=== PATIENT | male | born 1975 | race Caucasian/White ===

== ENCOUNTER 2017-03-06 12:47 | Outpatient (RCR) | payer OTHER, BC, SELFPAY ==
--- NOTE | 2017-03-08 13:59 | HP.SP.AD_ITS ---
History - History Date of Eval: 03/06/17 Medical Diagnosis (from RX): Benign neoplasm of tongue Date of Onset of Diagnosis: 4-5 months ago Previous speech therapy: No Other Relevant Medical History/Diagnoses/Surgery: 19-20 years ago patient had a benign sublingual tumor which was resected. A second surgery was needed to continue resection as not all tumor was removed first surgery. He has baseline numbness in front left tip of tongue. No dysphagia reported. 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 Left tongue tip is numb and has been since previous surgeries. No articulation deficits noted or weakness noted. Objective Oral Motor - Oral Status Dentition: WNL - Labial Impairment: WNL Closure: WNL Pucker: WNL Retraction: WNL Alternating Pucker/Retraction: WNL Involuntary Movement noted: No - Lingual Impairment: WNL Protrusion: WNL Retraction: WNL Lateralization: WNL Involuntary Movement: No - Lingual Comments Comments: Noted patient has mild area of missing tongue on front left section from tumor resectino 20 years ago. Scar was observed on underside of tongue. Normal frenulum. Patient reports that his tongue will hurt and get tight feeling after talking for a while. Also Patient reported pain on tongue ranging from no pain to 5/10 pain. No pain medications taken for it. He feels like his tongue is swollen but it is not observed to be swollen. He has a small bump on middle of front underside that he reports is painful. He stated when he speaks more then it hurts more. It scrapes against his front teeth when speaking therefore increases irritation the more he speaks. He reported that moving his tongue in stretching manner helps aleviate pain. - Jaw Impairment: WNL - Respiratory Status Respiratory Status: Room Air Plan - Plan Plan: Speech therapy is recommended to follow this patient to determine if home program is effective for pain reduction and decreased feelings of swelling/ thickeness in tongue. Decreased pain is a goal for this patient as he stated that pain is interfering with his daily living including home life and occupation in sales. - Recommendations MBS: No Treatment Warranted: Yes - Frequency Frequency: Monthly Duration: 4-6 Months - Prognosis Prognosis: Good - Goals that are Established: Determination:: Goals will be added/modified as deemed necessary and appropriate. Therapy will be discontinued when results of re-evaluation indicate therapy is no longer needed or lack of progress has been documented. - Goal #1-5 Goal #1: Patient will complete lingual stretching exercises independently and reported 2-3x times per day. Goal #2: Patient will report pain level as no more than 3/ 10 in the last month. Education - Patient has Indicated that the Following Identified Educational Needs: None The Patient has indicated that they have no educational or learning abilities that may effect their care.: Yes - Patient Instruction Patient Education: Diagnosis, Treatment Plan, Home Exercise Program Person Taught: Patient Teaching Method: Discussion Response to teaching: Verbalize understanding
--- NOTE | 2017-05-15 11:50 | HP.SP.DC ---
ST Discharge Summary - Discharged: Discharge: Flaco Braun is discharged from [facility] as of May 15, 2017. 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 A home program was given to the patient with no direct therapy warranted as the patient wanted to consult another ENT. Patient saw Dr Beckman in February and had blood work and a CT scan both of which patient reported were normal. He stated that Dr Beckman noted that bump on bottom of tongue is from scrapping it against bottom teeth. Monday he had teeth ground down to no rough spot to rub. The patient requested discharge without a follow up session on May 15, 2017 as he said is doing well. A copy of this patients discharge summary will be sent to his referring physician.
--- NOTE | 2017-05-16 09:49 | HP.SP.LETT ---
HP - SP Letter - Letter Note: Communication: Flaco Braun was discharged in error as he has requested to return to therapy. Please disregard discharge dated 05/15/17. Thank you.
--- NOTE | 2017-07-10 13:46 | HP.SP.DC_ITS ---
ST Discharge Summary - Discharged: Discharge: Flaco Braun Is discharged from [facility] as of July 10, 2017. He decided that he did not want a follow up appointment and asked to be discharged. 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 A home program was given to the patient with no direct therapy warranted as the patient wanted to consult another ENT. Patient saw Dr Beckman in February and had blood work and a CT scan both of which patient reported were normal. The patient requested discharge without a follow up session on May 15, 2017 as he said is doing well. A copy of this patient?s discharge summary will be sent to his referring physician.
== END 2017-03-06 19:00 | disposition home or self-care (01) ==
LOC: SP 12:47
PROVIDERS: Family Provider Family Medicine; PCP Family Medicine; Visit Provider Family Medicine
DX: D10.1 Benign neoplasm of tongue (principal)

== ENCOUNTER → 2017-03-24 16:05 | Outpatient (CLI) | payer OTHER, SELFPAY ==
--- NOTE | 2017-03-24 16:07 | CT_ITS ---
STUDY: CT PARANASAL SINUSES WITH CONTRAST REASON FOR EXAM: Male, 41 years old. GLOSSODYNIA. LUMP ON TIP OF TONGUE. ATTN. 7TH CRANIO FACIAL NERVE. RADIATION DOSAGE (If Supplied By Facility): CTDIvol = ( 29.38 ) mGy, DLP = ( 664.99 ) mGycm TECHNIQUE: The patient was scanned in a multi-detector CT scanner. High resolution transaxial imaging was performed following the intravenous administration of 100ML ml of Isovue 300 contrast material. Sagittal and coronal images were reconstructed. Individualized dose optimization techniques were used for this CT. COMPARISON: None. FINDINGS: FRONTAL SINUSES: There is atresia of the frontal sinus ETHMOIDAL SINUSES: Normal development and aeration of the bilateral ethmoidal air cells without mucosal inflammatory disease. MAXILLARY SINUSES: There is moderate mucosal thickening of the right maxillary sinus. There is minimal mucosal thickening of the left maxillary sinus. SPHENOIDAL SINUSES: Normal aeration of the bilateral sphenoid sinuses and there is no mucosal inflammatory disease. OMU: There is lateralized bilateral uncinate processes with obstruction of the infundibula. MIDDLE TURBINATES: Normal bilateral middle turbinates without a warren bullosa or paradoxical curvature. INFERIOR TURBINATES: Normal bilateral inferior turbinates. NASAL SEPTUM: There is some mild deviation of the nasal septum to the right. Normal anterior cranial fossa, [place] and cribriform plate. Normal bilateral orbital contents. Normal nasopharynx without adenoidal pad hypertrophy, or a posterior nasopharyngeal retention cyst. There is no demonstrated enhancing soft tissue or osseous abnormality. CT/Sinus/Facial Bone WITH Contras IMPRESSION: Moderate chronic paranasal sinus disease. No masses or lymphadenopathy. Electronically Signed: Alma Vora MD at 15:31 EST Tel , Service support ,
== END ==
PROVIDERS: Family Provider Family Medicine; PCP Family Medicine; Visit Provider Otolaryngology
DX: K14.6 Glossodynia (principal)
CPT/HCPCS: 70487; Q9967

== ENCOUNTER → 2017-06-01 11:08 | Outpatient (CLI) | payer OTHER, SELFPAY ==
[2017-06-01 12:42] LABS: ALB/GLOB Ratio 1.1 RATIO (0.9-2.4); AST(SGOT) 32 U/L (15-37); Alanine Aminotransfer ALT/SGPT 33 U/L (16-61); Albumin, Serum 4.1 g/dL (3.2-5.0); Alkaline Phosphatase 62 U/L (45-117); Anion Gap 7 (5-15); BUN 20 mg/dL (7-18); BUN/Creat Ratio 22.9 RATIO (10-20); Calcium,Total 8.7 mg/dL (8.5-10.1); Chloride 108 mmol/L (98-107); Creatinine, Serum 0.87 mg/dL (0.70-1.30); EST Glomerular Filtration Rate 103 mL/min (>60); Est Glom Filt Rate - Afr Amer 124 mL/min (>60); Ferritin 114 ng/mL (26-388); Globulin 3.7 g/dL (2.2-4.2); Glucose 85 mg/dL (74-106); Iron 89 ug/dL (65-175); Potassium 3.9 mmol/L (3.5-5.1); Protein, Total 7.8 g/dL (6.4-8.2); Sodium Level 141 mmol/L (136-145); Thyroid Stim Hormone (TSH) 1.42 uIU/mL (0.358-3.74)
[2017-06-02 12:07] LABS: Vitamin B12 > 2000 pg/mL (211-911)
[2017-06-02 17:23] LABS: ANTINUCLEAR ANTIBODIES DIRECT Negative (Negative)
[2017-06-07 16:12] LABS: Endomysial Antibody IgA Negative (Negative); Immunoglobulin A 307 mg/dL (90-386)
[2017-06-08 10:08] LABS: t-Transglutaminase IgA <2 U/mL (0-3)
== END ==
PROVIDERS: Family Provider Family Medicine; PCP Family Medicine; Visit Provider Family Medicine
DX: K12.1 Other forms of stomatitis (principal)
CPT/HCPCS: 36415; 80053; 81291; 82607; 82728; 82746; 82784; 83516; 83540; 84443; 86038; 86255

== ENCOUNTER 2017-07-21 08:02 | Day surgery (SDC) | payer OTHER, SELFPAY ==
--- NOTE | 2017-07-21 | TOBX_PTH ---
PATIENT: ISACC MATA [place] [facility] [place][id number] AGE/SX: 41/M ROOM: RE07/21/[address]: Dr. Perez Beckman MD : 1975 BED: DIS: 07/21/2017 SPEC #: [id number] RECD: 07/21/17 11:07 STATUS: BERNADETTE REYudelka #: [id number] PAULINA: 07/21/17 00:[address]: Perez Beckman DEPT: SURGICAL PATHOLOGY RECD BY: Denise Vogel ENTERED: 07/21/17 12:12 SP TYPE: TONGUE BX OTHR DR: Dr. Nathan Yugn MD Tissues: Tongue, NOS Procedures: Special Stain Group I Surgery Specimen Level IV GMS Stain (control) HEADER OPERATION: Biopsy tongue, anterior, frozen section PRE-OP DIAGNOSIS: Glossodynia; hemihypertrophy of muscle, tongue TISSUE SUBMITTED: Biopsy tongue left anterior 2/3 for FS at 1103 MICROSCOPIC DIAGNOSIS Tongue, anterior two-third, biopsy: Squamous mucosa with underlying skeletal muscle tissue with pseudoepitheliomatous hyperplasia, clinically glossodynia and hemihypertrophy of muscle, tongue. Focal superficial bacterial colonization. Special stain for fungi is negative for organisms; matched control is appropriate. BANDAR:subhash 07/25/17 MICROSCOPIC DESCRIPTION Slides are reviewed. GROSS DESCRIPTION Received fresh for frozen section diagnosis, later on canceled, labeled with the patient's name is a specimen designated biopsy tongue, left anterior two-third. The specimen consists of a piece of pink-red mucosal tissue measuring 3 x 0.6 cm and up to 1 cm in thickness. The specimen is inked, bisected and submitted entirely in one cassette. / BANDAR:subhash 07/21/17 TC:5 [facility]: [id number], [id number]
[2017-07-21 09:04] VITALS: BP 125/83; PULSE 79; RESP 16; TEMP 36.7; O2SAT 100; BMI 27.6
--- NOTE | 2017-07-21 11:14 | PCM.OPRPT ---
Problem List (1) Other specified disorders of muscle Status: Chronic (2) Tongue neoplasm Status: Chronic Report of Operation Date of Procedure: 07/21/17 Pre-Operative Diagnosis: Mass left anterior tongue Post-Operative Diagnosis: same Surgery/Procedure Performed:: Excision of mass anterior 2/3 of tongue Description of Surgical Findings:: Flaco is a 41-year-old male who presents with a persistent enlargement of the left anterior aspect of the tongue within its substance. Imaging did not show any identifiable abnormality however observation and therapy failed to result in resolution given the possibility for a rare abnormality such as leiomyoma amyloidosis or other unusual tongue abnormality open biopsy was offered for definitive evaluation as this caused him much concern in distress. The risk of tongue tongue numbness alteration of taste and scar tissue were reviewed and he was agreeable to proceed. The risks, alternatives, potential benefits, and complications were discussed at length and any questions answered to the patient and/or caregiver's satisfaction. Witnessed informed consent was obtained in the office, and the patient and/or caregiver was agreeable to proceed. Procedure went as follows: The patient was identified in the preoperative holding and brought to the operating room where he was placed under general anesthesia and intubated. When appropriate anesthesia is obtained, the oral cavity was examined and the tongue palpated. There is noted to be some hemihypertrophy of the left aspect of the anterior tongue within the belly of the tongue musculature. Dental wedge was placed and a 3-0 silk suture was placed in the anterior tongue midline to allow for retraction. The tongue was then injected with 2% lidocaine with 1-200,000 epinephrine and using monopolar cautery a 2 cm x 1 cm ellipse was then made to the anterior aspect of the tongue. Dissection was then carried deeply into the muscular layer and the enlarged muscular area was then excised and sent for pathologic specimen. The wound was then closed deeply with interrupted 3-0 Vicryl suture followed by interrupted 3-0 Vicryl sutures to the tongue mucosa. No bleeding was encountered and the patient was returned to anesthesia where he was revived and extubated without complication having tolerated the procedure well. Type of Anesthesia:: General Anesthesiologist: Julian Burrows Special Medications: none Specimen's removed: Biopsy of anterior 2/3 of tongue, left Drains: none Estimated Blood Loss (mL): 0 mL Fluids Replaced: 700 mL Grafts/Implants Used: none - Complications none - Admit VTE Documentation VTE Present on Admission: No VTE Mechan Device Prophylaxis: SCD's VTE Pharm Prophylaxis ordered?: No
--- NOTE | 2017-07-21 11:24 | PCM.DC ---
- Discharge Diagnoses Current Active Problems: Current Active and Chronic Problems (Last Reviewed 04/20/17 @ 11:22 by Dali Painter) 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 Call your doctor if your incision/area has: Continuous Slow Oozing, Increased Pain/ Swelling, Swelling at the incision site Call your doctor if you observe: Fever of 101 or Higher, Uncontrolled pain Allergies/Adverse Reactions: Allergies Sulfa (Sulfonamide Antibiotics) Allergy (Verified 07/21/17 09:03) Anaphylaxis Medications to take at Discharge multivitamin capsule 1 cap PO DAILY 04/05/17 vitamin B complex capsule 1 cap PO DAILY 04/05/17 Citalopram [Celexa] 10 mg PO DAILY 07/14/17 Primary Care Physician: Nathan Yung MD [Primary Care Provider] - Please Follow Up With: Perez Beckman MD When: 2 weeks
[2017-07-21 11:30] VITALS: BP 125/83; BP 131/87; PULSE 63; RESP 16; TEMP 36.2; O2SAT 96
[2017-07-21 11:45] VITALS: BP 125/83; BP 130/88; PULSE 66; RESP 16; O2SAT 95
[2017-07-21 12:01] VITALS: BP 125/83; BP 129/94; PULSE 66; RESP 16; TEMP 36.4; O2SAT 96
[2017-07-21] MEDS: Ibuprofen 400 MG Tablet PO (12:39)
[2017-07-21 12:40] VITALS: BP 125/83
== END 2017-07-21 12:48 | disposition home or self-care (01) ==
LOC: SDC 08:02 → AC 08:05
PROVIDERS: Family Provider Family Medicine; PCP Family Medicine; Visit Provider Otolaryngology
PROC: (CPT 41112; principal; 2017-07-21 10:25)
DX: K14.6 Glossodynia (principal); M62.89 Other specified disorders of muscle; H92.02 Otalgia, left ear; F41.9 Anxiety disorder, unspecified; F17.200 Nicotine dependence, unspecified, uncomplicated; Z79.899 Other long term (current) drug therapy
CPT/HCPCS: 41112; 88305; 88312; J7120; A4216; J2405

== ENCOUNTER 2017-10-03 17:30 | Observation (INO) | payer OTHER, SELFPAY ==
[2017-10-03] VITALS (7 sets, daily range): BP systolic 122–134; BP diastolic 80–87; PULSE 64–80; RESP 16–18; TEMP 36.8–36.9; O2SAT 98–100; BMI 28.3; BMI 28.1; BMI 28.2
--- NOTE | 2017-10-03 17:44 | NURSING ---
NO OLD EKGS
--- NOTE | 2017-10-03 17:45 | RAD_ITS ---
STUDY: X-RAY CHEST REASON FOR EXAM: Male, 42 years old. Chest pain TECHNIQUE: Frontal view of the chest COMPARISON: None. FINDINGS: The lungs are clear. There are no pleural effusions. There is no pneumothorax. The heart is normal in size. The visualized osseous structures are within normal limits. RAD/Chest 1 View (Portable) IMPRESSION: No acute thoracic pathology. Electronically Signed: Herb Neely, at 18:20 EDT Tel , Service support ,
[2017-10-03 18:00] LABS: Absolute Lymphocyte Count 1.77 X10^3/ul (0.83-4.51); Absolute Neutrophil Count 3.2 X10^3/uL (2.0-7.7); Basophil# 0.04 X10^3/uL; Basophil% 0.6 % (0-1); Eosinophil# 0.41 X10^3/uL; Eosinophils% 6.5 % (0-5); Hematocrit 42.2 % (40-54); Hemoglobin 13.8 g/dl (13.0-16.5); Lymphocyte # 1.77 X10^3/ul (4.0); Lymphocyte % 28.1 % (19-41); Mean Corp Hgb Conc 32.7 g/gl (32-36); Mean Corpuscular Hgb 30.1 pg (27.0-32.0); Mean Corpuscular Volume 91.9 fL (80-94); Mean Platelet Vol. 9.9 fl (6.2-12.0); Monocyte# 0.84 X10^3/uL; Monocyte% 13.3 % (0-10); Neutrophil # 3.23 X10^3/uL (2.7-7.7); Neutrophil % 51.3 % (47-70); Platelet Count 260 K/mm3 (150-450); RBC Distribution Width SD 43.3 fl (35.1-43.9); Red Blood Count 4.59 M/mm3 (4.6-6.2); White Blood Count 6.3 K/mm3 (4.4-11.0)
[2017-10-03 18:18] LABS: POSITIVE COUNT NO; POSITIVE DIFFERENTIAL NO; POSITIVE MORPHOLOGY NO
[2017-10-03 18:23] LABS: Anion Gap 4 (5-15); BUN 19 mg/dL (7-18); Calcium,Total 8.9 mg/dL (8.5-10.1); Chloride 107 mmol/L (98-107); EST Glomerular Filtration Rate 88 mL/min (>60); Est Glom Filt Rate - Afr Amer 106 mL/min (>60); Estimated Creatinine Clearance 103.54 ml/min; Glucose 98 mg/dL (74-106); Potassium 4.1 mmol/L (3.5-5.1); Sodium Level 142 mmol/L (136-145)
[2017-10-03 18:44] LABS: D-Dimer Quantitative (DVT/PE) 0.27 FEU/ug/m (0.27-0.49)
--- NOTE | 2017-10-03 19:32 | ED.DCSUM_ITS ---
- ER Visit Summary Date of Service: 10/03/17 Chief Complaint: Chest pain History of Present Illness: The patient is a 42 M with chest pain for the past 4 days. It has been waxing and waning. He describes it as a heavy and squeezing sensation. He does get occasional shortness of breath and breaks out in a sweat for no reason, but on questioning does state the pain seems to be worse during these episodes. He has been more winded with exertion recently. He denies reflux symptoms. He did have recent travel. He has no cardiac risk factors are significant family history. Physical Examination: Vital signs unremarkable. Patient sitting upright in bed. Head neck examination unremarkable. Heart is regular rate and rhythm. Lung sounds are clear. He has very minimal chest wall tenderness that he states is not similar to the chest pain he feels. Abdomen is soft nontender. Lower extremity examination reveals no tenderness or edema. Strong distal pulses are noted throughout. Test Results: Portable chest x-ray shows no acute pathology. EKG is sinus at 66 with no sign of ischemia. CBC and chemistry studies normal. Troponin negative. D-dimer negative. Emergency Department Course and Treatment: Patient received aspirin. On repeat evaluation is resting comfortably. Although the patient does not have significant risk factors, his story is concerning. It does not appear that he gets diaphoretic with these episodes. I recommended observation overnight for cycling of enzymes and stress test. Treatment Plan: [] Disposition: Admit Impression: Chest pain This note was generated with Letsmake dictation software. It may contain incorrect words, spelling, and punctuation that were not noted in review of the chart prior to signing ED Disposition - Plan for ED Patient: Chief Complaint: Chest Pain Referrals: Perez Milligan MD [Primary Care Provider] -
--- NOTE | 2017-10-03 19:56 | PCM.HP.STD ---
Problem List (1) Chest pain Status: Acute Qualifiers: Chest pain type: unspecified Qualified Code(s): R07.9 - Chest pain, unspecified History of Present Illness Date of Admission: 10/03/17 Chief Complaint: chest pain. The patient is a 42 year old M presents with a 2 day history of chest pain. It began with feeling he swallowed a pill again his upper chest and then went down to his lower chest and just persisted. It would get worse when he would exert himself but would never completely go away. Associated with some diaphoresis and shortness of breath. Patient presented to the emergency room his chest pain was not resolving. He denies ever having had chest pain like this before. Patient states that 3 days prior he did a workout class and burnt 700 manny and had no chest pain at that time. Patient is normally very active and works out, does yoga. 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) Allergies Sulfa (Sulfonamide Antibiotics) Allergy (Verified 10/03/17 17:33) Anaphylaxis Home Medications: Ambulatory Orders Medication Instructions Recorded multivitamin capsule 1 cap PO DAILY 04/05/17 Citalopram [Celexa] 10 mg PO DAILY 07/14/17 Surgical History: - - Excision of mass on the anterior two thirds of Psychiatric History: No pertinent psych hx Lives: Spouse/ Significant Other Smoking Status: Never smoker Tobacco Use: Non-smoker Alcohol: Occasional Drugs: None - *Family History Maternal Family History: Family History (Last Reviewed 10/03/17 @ 19:58 by Perez Paez DO) Other Hypertension History Items: - Review of Systems Constitutional: Denies: Chills, Fever, Weight Change Eyes: Denies: Blurred vision, Double vision HEENT: Denies: Head Aches, Sinus Congestion, Sinus Drainage Cardiovascular: Reports: Chest Pain, Chest Tightness. Denies: Edema Respiratory: Reports: Shortness of Breath. Denies: Cough Gastrointestinal: Denies: Abdominal Pain, Nausea, Vomiting Genitourinary: Denies: Dysuria Musculoskeletal: Denies: Joint Pain, Joint Tenderness Skin: Denies: Rash, Wounds Neurological: Denies: Numbness, Tingling, Focal weakness Psychiatric: Denies: Anxiety, Depression Hematologic/ Lymphatic: Denies: Easy Bruising, Easy Bleeding, Hx of blood clot Comment: All review of systems are negative except as mentioned in the history of present illness and the other review of systems. VTE Information - Inpt Only VTE Present on Admission: No VTE Mechan Device Prophylaxis: None VTE Pharm Prophylaxis ordered?: No Reason prophylaxis not ordered:: Procedure Not Indicated Patient Problems: Active and Suspected Problems (Last Reviewed 04/20/17 @ 11:22 by Dali Painter) Chest pain (Acute) - Physical Exam General: Alert, Cooperative, No apparent distress, Well developed, Well nourished HEENT: Atraumatic, Normocephalic Oral: Moist Mucosa, No Gingival or Mucosal Lesions/ Ulcerations Neck: No Nodes, Thyroid Normal Size and Texture Lungs: Clear to auscultation, Normal air movement, No rhonchi, No wheeze Cardiovascular: Regular rate, Regular Rhythm, Normal S1, Normal S2, No murmurs Abdomen: Bowel Sounds Present, Soft, Non Tender, Non-Distended, No Hepato-splenomegaly Extremities: No clubbing, No edema Skin: No rashes, No breakdown Musculoskeletal: - - Reproducible anterior chest wall tenderness Psych/Mental Status: Normal Affect, Appropriate Vital Signs Temp Pulse Resp BP Pulse Ox 36.8 C 72 18 128/86 H 99 10/03/17 17:31 10/03/17 19:21 10/03/17 19:21 10/03/17 19:21 10/03/17 19:21 Oxygen Delivery Method Room Air Weight: 92.2 kg Body Mass Index (BMI) 28.3 Laboratory Tests Past 24 Hrs 10/03/17 10/03/17 10/03/17 17:45 17:45 17:45 WBC 6.3 RBC 4.59 L Hgb 13.8 Hct 42.2 MCV 91.9 MCH 30.1 MCHC 32.7 RDW 13.0 RDW Differential 43.3 Plt Count 260 MPV 9.9 Immature Gran % (Auto) 0.200 Neut % (Auto) 51.3 Lymph % (Auto) 28.1 [place] % (Auto) 13.3 H Eos % (Auto) 6.5 H Baso % (Auto) 0.6 Absolute Neuts (auto) 3.2 Absolute Lymphs (auto) 1.77 Total Counted Not Reportable D-Dimer Quant (PE/DVT) 0.27 Sodium 142 Potassium 4.1 Chloride 107 Carbon Dioxide 31.0 Anion Gap 4 L BUN 19 H Creatinine 1.00 Estim Creat Clear Calc 103.54 Est GFR (MDRD) Af Amer 106 Est GFR (MDRD) Non-Af 88 BUN/Creatinine Ratio 19.0 Glucose 98 Calcium 8.9 Troponin I < 0.015 Clinical Impression(s) from Imaging Studies Chest X-Ray 10/03/17 17:45 IMPRESSION: No acute thoracic pathology. Electronically Signed: Herb Neely, at 18:20 EDT Tel , Service support , EKG reviewed and showed normal sinus rhythm. Questionable Q in lead III Assessment/Plan All Active Problems (Last Reviewed 04/20/17 @ 11:22 by Dali Painter) Chest pain (Acute) Otitis media (Acute) Sinusitis, acute maxillary (Acute) 1. Chest pain Heart score of 2 JOHN score of 0 Asked to admit the patient for concern from the emergency room physician can patient's chest pain and diaphoresis and shortness of breath. Will admit the patient and have him complete a rest test. Patient is pretty healthy and informed him that he may have to run with treadmill which he has no issues with his he is very active overall. Patient may have to run because to get his heart rate up to the age-adjusted range per the [employer] protocol Cycle troponins My concern is that this is likely not his heart and could be GI or even musculoskeletal. We will start him empirically on Protonix. 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 I explained to patient if his symptoms persist and his cardiac workup is negative he may need to see a health science instructor for possible EGD. 2. DVT prophylaxis: Patient is low risk, no DVT prophylaxis is necessary at this time and also the fact the patient is under observation status. Code Visit OBSV E&M: [id number] Initial observation care L2
--- NOTE | 2017-10-03 20:00 | HP.PCM_ITS ---
Problem List (1) Chest pain Status: Acute Qualifiers: Chest pain type: unspecified Qualified Code(s): R07.9 - Chest pain, unspecified History of Present Illness Date of Admission: 10/03/17 Chief Complaint: chest pain. The patient is a 42 year old M presents with a 2 day history of chest pain. It began with feeling he swallowed a pill again his upper chest and then went down to his lower chest and just persisted. It would get worse when he would exert himself but would never completely go away. Associated with some diaphoresis and shortness of breath. Patient presented to the emergency room his chest pain was not resolving. He denies ever having had chest pain like this before. Patient states that 3 days prior he did a workout class and burnt 700 manny and had no chest pain at that time. Patient is normally very active and works out, does yoga. 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) Allergies Sulfa (Sulfonamide Antibiotics) Allergy (Verified 10/03/17 17:33) Anaphylaxis Home Medications: Ambulatory Orders Medication Instructions Recorded multivitamin capsule 1 cap PO DAILY 04/05/17 Citalopram [Celexa] 10 mg PO DAILY 07/14/17 Surgical History: - - Excision of mass on the anterior two thirds of Psychiatric History: No pertinent psych hx Lives: Spouse/ Significant Other Smoking Status: Never smoker Tobacco Use: Non-smoker Alcohol: Occasional Drugs: None - *Family History Maternal Family History: Family History (Last Reviewed 10/03/17 @ 19:58 by Perez Paez DO) Other Hypertension History Items: - Review of Systems Constitutional: Denies: Chills, Fever, Weight Change Eyes: Denies: Blurred vision, Double vision HEENT: Denies: Head Aches, Sinus Congestion, Sinus Drainage Cardiovascular: Reports: Chest Pain, Chest Tightness. Denies: Edema Respiratory: Reports: Shortness of Breath. Denies: Cough Gastrointestinal: Denies: Abdominal Pain, Nausea, Vomiting Genitourinary: Denies: Dysuria Musculoskeletal: Denies: Joint Pain, Joint Tenderness Skin: Denies: Rash, Wounds Neurological: Denies: Numbness, Tingling, Focal weakness Psychiatric: Denies: Anxiety, Depression Hematologic/ Lymphatic: Denies: Easy Bruising, Easy Bleeding, Hx of blood clot Comment: All review of systems are negative except as mentioned in the history of present illness and the other review of systems. VTE Information - Inpt Only VTE Present on Admission: No VTE Mechan Device Prophylaxis: None VTE Pharm Prophylaxis ordered?: No Reason prophylaxis not ordered:: Procedure Not Indicated Patient Problems: Active and Suspected Problems (Last Reviewed 04/20/17 @ 11:22 by Dali Painter) Chest pain (Acute) - Physical Exam General: Alert, Cooperative, No apparent distress, Well developed, Well nourished HEENT: Atraumatic, Normocephalic Oral: Moist Mucosa, No Gingival or Mucosal Lesions/ Ulcerations Neck: No Nodes, Thyroid Normal Size and Texture Lungs: Clear to auscultation, Normal air movement, No rhonchi, No wheeze Cardiovascular: Regular rate, Regular Rhythm, Normal S1, Normal S2, No murmurs Abdomen: Bowel Sounds Present, Soft, Non Tender, Non-Distended, No Hepato- splenomegaly Extremities: No clubbing, No edema Skin: No rashes, No breakdown Musculoskeletal: - - Reproducible anterior chest wall tenderness Psych/Mental Status: Normal Affect, Appropriate Vital Signs Temp Pulse Resp BP Pulse Ox 36.8 C 72 18 128/86 H 99 10/03/17 17:31 10/03/17 19:21 10/03/17 19:21 10/03/17 19:21 10/03/17 19:21 Oxygen Delivery Method Room Air Weight: 92.2 kg Body Mass Index (BMI) 28.3 Laboratory Tests Past 24 Hrs 10/03/17 10/03/17 10/03/17 17:45 17:45 17:45 WBC 6.3 RBC 4.59 L Hgb 13.8 Hct 42.2 MCV 91.9 MCH 30.1 MCHC 32.7 RDW 13.0 RDW Differential 43.3 Plt Count 260 MPV 9.9 Immature Gran % (Auto) 0.200 Neut % (Auto) 51.3 Lymph % (Auto) 28.1 [place] % (Auto) 13.3 H Eos % (Auto) 6.5 H Baso % (Auto) 0.6 Absolute Neuts (auto) 3.2 Absolute Lymphs (auto) 1.77 Total Counted Not Reportable D-Dimer Quant (PE/DVT) 0.27 Sodium 142 Potassium 4.1 Chloride 107 Carbon Dioxide 31.0 Anion Gap 4 L BUN 19 H Creatinine 1.00 Estim Creat Clear Calc 103.54 Est GFR (MDRD) Af Amer 106 Est GFR (MDRD) Non-Af 88 BUN/Creatinine Ratio 19.0 Glucose 98 Calcium 8.9 Troponin I < 0.015 Clinical Impression(s) from Imaging Studies Chest X-Ray 10/03/17 17:45 IMPRESSION: No acute thoracic pathology. Electronically Signed: Herb Neely, at 18:20 EDT Tel , Service support , EKG reviewed and showed normal sinus rhythm. Questionable Q in lead III Assessment/Plan All Active Problems (Last Reviewed 04/20/17 @ 11:22 by Dali Painter) Chest pain (Acute) Otitis media (Acute) Sinusitis, acute maxillary (Acute) 1. Chest pain * Heart score of 2 * JOHN score of 0 * Asked to admit the patient for concern from the emergency room physician can patient's chest pain and diaphoresis and shortness of breath. * Will admit the patient and have him complete a rest test. Patient is pretty healthy and informed him that he may have to run with treadmill which he has no issues with his he is very active overall. Patient may have to run because to get his heart rate up to the age-adjusted range per the [facility] protocol * Cycle troponins * My concern is that this is likely not his heart and could be GI or even musculoskeletal. We will start him empirically on Protonix. 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 I explained to patient if his symptoms persist and his cardiac workup is negative he may need to see a contract administrator for possible EGD. 2. DVT prophylaxis: Patient is low risk, no DVT prophylaxis is necessary at this time and also the fact the patient is under observation status. Code Visit OBSV E&M: 74127 Initial observation care L2
--- NOTE | 2017-10-03 20:26 | NURSING ---
Called ED lacquer mixerMila MARY at this time to confirm Pt okay to come to PCU.
--- NOTE | 2017-10-03 21:32 | NURSING ---
no vaccines to record.
--- NOTE | 2017-10-03 21:35 | EKG12_ITS ---
Test Reason : ADM EKG Blood Pressure : / mmHG Vent. Rate : 065 BPM Atrial Rate : 065 BPM P-R Int : 170 ms QRS Dur : 104 ms QT Int : 414 ms P-R-T Axes : 046 025 -01 degrees QTc Int : 430 ms Normal sinus rhythm Poor R wave progression Nonspecific T wave abnormality Confirmed by ARCHANA BECKMAN, MILLICENT ([id number]), editor house organ [place] ([id number]) on 10/06/2017 2:07:55 PM Referred By: CARLOS ALBERTO Confirmed By:MILLICENT MAGAÑA MD
[2017-10-03] MEDS: Aspirin 81 MG TAB.CHEW 324 MG PO (22:43)
[2017-10-03] MEDS: Pantoprazole Sodium 40 MG Tablet PO (22:43)
[2017-10-04] VITALS (9 sets, daily range): BP systolic 115–131; BP diastolic 63–76; PULSE 57–85; RESP 16–18; TEMP 36.4–37.3; O2SAT 95–98
--- NOTE | 2017-10-04 05:00 | EKG12_ITS ---
Test Reason : AM EKG Blood Pressure : / mmHG Vent. Rate : 066 BPM Atrial Rate : 066 BPM P-R Int : 170 ms QRS Dur : 108 ms QT Int : 432 ms P-R-T Axes : 054 031 008 degrees QTc Int : 452 ms Normal sinus rhythm Poor R wave progression Nonspecific T wave abnormality Confirmed by ARCHANA BECKMAN, MILLICENT ([id number]), purchasing expeditor [place] ([id number]) on 10/06/2017 2:05:51 PM Referred By: CARLOS ALBERTO Confirmed By:MILLICENT MAGAÑA MD
[2017-10-04 05:37] LABS: Absolute Lymphocyte Count 1.59 X10^3/ul (0.83-4.51); Absolute Neutrophil Count 2.4 X10^3/uL (2.0-7.7); Basophil# 0.03 X10^3/uL; Basophil% 0.6 % (0-1); Eosinophil# 0.38 X10^3/uL; Eosinophils% 7.6 % (0-5); Hematocrit 41.1 % (40-54); Hemoglobin 13.5 g/dl (13.0-16.5); Lymphocyte # 1.59 X10^3/ul (4.0); Lymphocyte % 31.7 % (19-41); Mean Corp Hgb Conc 32.8 g/gl (32-36); Mean Corpuscular Hgb 30.1 pg (27.0-32.0); Mean Corpuscular Volume 91.5 fL (80-94); Mean Platelet Vol. 9.9 fl (6.2-12.0); Neutrophil % 47.9 % (47-70); Platelet Count 249 K/mm3 (150-450); RBC Distribution Width CV 12.9 % (11.6-14.6); RBC Distribution Width SD 42.7 fl (35.1-43.9); Red Blood Count 4.49 M/mm3 (4.6-6.2)
[2017-10-04 05:44] LABS: Prothrombin Time (Protime)PT. 13.3 SECONDS (11.7-14.9)
[2017-10-04 05:45] LABS: Partial Thromboplast Time 29.2 Seconds (24.1-36.2)
[2017-10-04] MEDS: Aspirin E.C. 81 MG Tablet PO (05:46)
[2017-10-04 06:01] LABS: Anion Gap 6 (5-15); BUN 19 mg/dL (7-18); BUN/Creat Ratio 22.7 RATIO (10-20); Calcium,Total 8.6 mg/dL (8.5-10.1); Chloride 107 mmol/L (98-107); Cholesterol 233 mg/dL (200); Creatinine, Serum 0.84 mg/dL (0.70-1.30); EST Glomerular Filtration Rate 107 mL/min (>60); Est Glom Filt Rate - Afr Amer 130 mL/min (>60); Estimated Creatinine Clearance 123.26 ml/min; Glucose 96 mg/dL (74-106); High Density Lipoprotein 59 mg/dL; Potassium 4.3 mmol/L (3.5-5.1); Sodium Level 143 mmol/L (136-145); Triglycerides 162 mg/dL; Very Low Density Lipoprotein 32 mg/dL (5-40)
[2017-10-04 06:06] LABS: POSITIVE COUNT NO; POSITIVE DIFFERENTIAL NO; POSITIVE MORPHOLOGY NO
[2017-10-04] MEDS: 0.9% NaCl Peripheral Flush Adult/Peds IV (06:25)
[2017-10-04] MEDS: Multivitamins,Therapeutic Tablet 1 TABLET PO (09:38)
[2017-10-04] MEDS: Pantoprazole Sodium 40 MG Tablet PO (09:38)
[2017-10-04] MEDS: Citalopram 10 MG Tablet PO (09:38)
--- NOTE | 2017-10-04 11:13 | DCINST_ITS ---
- Discharge Diagnoses Current Active Problems: Current Active and Chronic Problems (Last Reviewed 04/20/17 @ 11:22 by Dali Painter) Chest pain (Acute) You will use the following diet at home:: Regular Your food should be the consistency of: Regular Discharge Activity: Return to Normal Activity Weight Bearing Status: Full weight bearing Call your doctor if you observe: Fever of 101 or Higher, Shortness of breath, Dizziness, Fainting spells, Chest pain, Increased palpitations (irregular heartbeat), Uncontrolled pain Allergies/Adverse Reactions: Allergies Sulfa (Sulfonamide Antibiotics) Allergy (Verified 10/03/17 17:33) Anaphylaxis Medications to take at Discharge multivitamin capsule 1 cap PO DAILY 04/05/17 Citalopram [Celexa] 10 mg PO DAILY 07/14/17 Pantoprazole Sodium [Protonix] 40 mg PO DAILY #30 tab 10/04/17 The following prescriptions were given: Pantoprazole Sodium [Protonix] 40 mg PO DAILY #30 tab Primary Care Physician: Perez Milligan MD [Primary Care Provider] - Please follow up with your Primary Care Physician in: 2-4 weeks. Test Results: Test results from this visit will be discussed in further detail at your follow- up appointment, if applicable.
--- NOTE | 2017-10-04 14:58 | DS.PCM_ITS ---
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 Electronically Signed: Herb Neely, at 18:20 EDT Tel , Service support , Procedures: EKG, - - Stress echocardiogram. Summary of Care Provided: Patient seen and examined on the day of discharge and appeared to be stable to be discharged home. His chest pain improved but still having mild chest discomfort described as something stuck in the middle of his chest. Denied shortness of breath, palpitation, dizziness, lightheadedness, syncope or presyncope his vital signs are stable. - Physical Exam General: Alert, Oriented x3, Cooperative, No apparent distress. HEENT: Atraumatic, PERRLA, EOMI. Neck: Supple, No JVD, Negative Carotid Bruits, Trachea Midline, Thyroid Normal. Lungs: Clear to auscultation, Normal air movement, No rhonchi, No wheeze, No rales. Cardiovascular: Regular rate, Regular Rhythm, Normal S1, Normal S2, PMI Normal. Abdomen: Bowel Sounds Present, Soft, Non Tender, Non-Distended, No Hepato- splenomegaly. Extremities: No clubbing, No cyanosis, No edema Skin: No rashes, No breakdown Neurological: Neuro grossly intact Vital Signs are stable. Hospital course: The patient is a 42 year old M admitted for chest pain for evaluation. He has no risk factors for CAD and no family history of premature CAD. His EKG revealed normal sinus rhythm without evidence of acute ischemic changes. His troponin was negative ?3. Routine blood work was unremarkable. Chest x-ray showed no acute findings. Patient underwent stress echocardiogram that reported as negative without evidence of stress-induced myocardial ischemia based on EKG and echocardiographic criteria, official report is pending at the time of discharge. ACS ruled out. Patient symptoms attributed to probable GERD versus esophageal spasm. Patient discharged home in a stable medical condition, discharged on Protonix 40 mg p.o. daily, recommended PCP in 2-4 weeks and if his symptoms persist, he may need GI referral as outpatient. Discharge Activity: Return to Normal Activity Weight Bearing Status: Full weight bearing Call your doctor if you observe: Fever of 101 or Higher, Shortness of breath, Dizziness, Fainting spells, Chest pain, Increased palpitations (irregular heartbeat), Uncontrolled pain Home Medications: Medications to take at Discharge multivitamin capsule 1 cap PO DAILY 04/05/17 Citalopram [Celexa] 10 mg PO DAILY 07/14/17 Pantoprazole Sodium [Protonix] 40 mg PO DAILY #30 tab 10/04/17 Following Prescrptions Were Given to Patient: Pantoprazole Sodium [Protonix] 40 mg PO DAILY #30 tab Primary Care Physician: Perez Milligan MD [Primary Care Provider] - Please follow up with your Primary Care Physician in: 2-4 weeks. Disposition: Home Minutes spent on discharge:: 25 Patient Condition:: Stable Medical Necessity - Tobacco Use Smoking Status: Never smoker Tobacco Use: Non-smoker Meaningful Use Info Meaningful Use Diagnoses (Choose all that apply): None applicable Code Visit OBSV E&M: 52528 Observation care discharge
== END 2017-10-04 11:12 | disposition home or self-care (01) ==
LOC: ED 18:22 → PCU 20:14
PROVIDERS: Emergency Provider Emergency Medicine; Family Provider Family Medicine; PCP Family Medicine; Visit Provider Hospitalist
DX: R07.89 Other chest pain (principal); R06.02 Shortness of breath; Z79.899 Other long term (current) drug therapy; F32.9 Major depressive disorder, single episode, unspecified; F41.9 Anxiety disorder, unspecified
CPT/HCPCS: 36415; 71045; 80048; 80061; 84484; 85025; 85379; 85610; 85730; 93005; 93017; 93350; 97802; 99218; 99285; A4216; G0378

== ENCOUNTER → 2017-10-18 08:25 | Outpatient (CLI) | payer OTHER, SELFPAY | PROVIDERS: Family Provider Family Medicine; PCP Family Medicine; Visit Provider Family Medicine | DX: R13.10 Dysphagia, unspecified (principal) | CPT/HCPCS: 74220 ==

== ENCOUNTER → 2017-11-29 08:03 | Outpatient (CLI) | payer OTHER, SELFPAY ==
--- OUTSIDE RECORDS SUMMARY | 2017-11-29 08:19 | XMS RPT_ITS ---
:1975 Author Organization [facility] Care Team Providers Name Role Phone Perez Milligan Attending Unavailable Perez Milligan Unavailable Perez Milligan Primary Care Unavailable PROBLEMS PROBLEMS No Problem Records FoundPROCEDURES PROCEDURES No Procedure Records FoundRESULTS RESULTS No Result Records FoundALLERGIES ALLERGIES No Allergies Records FoundENCOUNTERS ENCOUNTERS ADMIT/DISCHARGE ACCOUNT ADMITTING ENCOUNTER LOCATION SOURCE NUMBER CLASS 11/29/2017 [id number] Ambulatory Eli Eli 4 [facility] ing:MFPLAB Repository 11/29/2017 [id number] Ambulatory Eli Eli 9 [facility] ing:LAB.FUTUR Repository E PAYERS PAYERS ENCOUNTER GUARANTOR PAYER SUBSCRIBER SOURCE 11/29/2017 ANA PAULA Benitez [id number] Insurance:Komal SARAIDOB: [facility] [place]: [id number] Repository [id number]: [phone]) Date:[phone] () [id number] [id number]: 11/29/2017 Secondary NOT GIVENUNK Eli Insurance:SELF PAY [facility] Number: Effective Repository Date:2017-11-29 11/29/2017 Primary NOT GIVENUNK [place] Insurance:SELF PAY [facility] Number: Effective Repository Date:2017-11-29
[2017-11-29 12:45] LABS: Vitamin B12 641 pg/mL (211-911); Vitamin D,25 Hydroxy 19.2 ng/mL (29.95-100.01)
[2017-11-29 13:06] LABS: Anion Gap 6 (5-15); BUN 12 mg/dL (7-18); BUN/Creat Ratio 13.1 RATIO (10-20); Calcium,Total 8.7 mg/dL (8.5-10.1); Chloride 105 mmol/L (98-107); Creatinine, Serum 0.92 mg/dL (0.70-1.30); EST Glomerular Filtration Rate 97 mL/min (>60); Est Glom Filt Rate - Afr Amer 117 mL/min (>60); Glucose 94 mg/dL (74-106); Potassium 4.2 mmol/L (3.5-5.1); Sodium Level 138 mmol/L (136-145)
[2017-12-01 18:51] LABS: Vitamin D 1,25-Dihydroxy 33.7 pg/mL (19.9-79.3)
[2017-12-01 18:57] LABS: ANTINUCLEAR ANTIBODIES DIRECT Negative (Negative); Anti-Mitochondrial AB <20.0 Units (0.0-20.0)
[2017-12-03 16:06] LABS: Folate, Hemolysate Test 478.8 ng/mL (Not Estab.); Folate, RBC (Hct) Test 41.4 % (37.5-51.0); Folates, RBC Test 1157 ng/mL (>498); Testosterone, % Free 3.98 % (1.50-4.20); Testosterone, Free 16.64 ng/dL (5.00-21.00)
[2017-12-04 11:22] LABS: EBV Acute VCA IgM < 36.0 U/mL (0.0-35.9); EBV Early Antigen IgG <9.0 U/mL (0.0-8.9); EBV-VCA IgG 49.8 U/mL (0.0-17.9); Testosterone, Total 418 ng/dL (264-916); Vitamin B1, Thiamine 139.6 nmol/L (66.5-200.0)
== END ==
PROVIDERS: Family Provider Family Medicine; PCP Family Medicine; Visit Provider Family Medicine
DX: K13.70 Unspecified lesions of oral mucosa (principal); E72.12 Methylenetetrahydrofolate reductase deficiency
CPT/HCPCS: 36415; 80048; 82306; 82607; 82652; 82746; 82747; 83516; 83735; 84402; 84403; 84425; 85014; 86038; 86663; 86664; 86665

== ENCOUNTER → 2018-01-15 07:10 | Outpatient (CLI) | payer OTHER, SELFPAY ==
[2018-01-15 07:10] VITALS: BMI 28.5
[2018-01-15 11:20] LABS: Thyroid Stim Hormone (TSH) 1.82 uIU/mL (0.358-3.74)
== END ==
PROVIDERS: Family Provider Family Medicine; PCP Family Medicine
DX: G52.3 Disorders of hypoglossal nerve (principal)
CPT/HCPCS: 36415; 84443

== ENCOUNTER → 2018-01-22 15:17 | Outpatient (CLI) | payer OTHER, SELFPAY ==
[2018-01-15 07:10] VITALS: BMI 28.5
--- NOTE | 2018-01-22 15:30 | MRI_ITS ---
STUDY: MRI BRAIN WITH AND WITHOUT CONTRAST REASON FOR EXAM: Male, 42 years old. MASS -- pain/ pulling sensation tip of tongue x 15 months, bx done back of tongue previously. TECHNIQUE: Standardized multiplanar fat and water weighted pulse sequences were obtained. 10 ml of Gadavist contrast material was administered intravenously for the contrast portion of the examination. COMPARISON: CT sinuses dated March 24, 2018 FINDINGS: Normal size of the ventricles and extra-axial spaces for the patient's age. Normal white matter tracts of the supratentorial brain. Normal bilateral basal ganglia. Normal thalami. There is no extra-axial fluid accumulation. Normal flow voids within the major intracranial circulation suggesting patency by spin echo criteria. Normal venous enhancement. There is no enhancing intra-axial or extra-axial abnormality. Normal sella turcica, pituitary gland, infundibular stalk, optic chiasm and hypothalamus. Normal tectal plate and pineal gland. Normal midbrain, sylvia and medulla. Normal cerebellum. Normal basal cisterns. Normal bilateral temporal bones. Normal bilateral internal auditory canals. No demonstrated orbital abnormality, within the constraints of a routine brain study. Normal visualized paranasal sinuses. Normal calvarium and skull base. Normal visualized soft tissue structures. Normal visualized upper cervical spine. There are no demonstrated masses of the tongue. Please note that MRI evaluation of the tongue is less sensitive than CT and physical examination. MRI/Brain W/WO Contrast IMPRESSION: Unremarkable MRI of the brain. No demonstrated masses of the tongue as described above. Electronically Signed: Alma Vora MD at 15:55 EST Tel , Service support ,
--- OUTSIDE RECORDS SUMMARY | 2018-03-06 13:48 | XMS RPT_ITS ---
:1975 Author Organization OHIP Support Name Relationship Address Phone [employer] [employer] Unavailable [id number] + [place] [address] ADOLFO, VERÓNICA Unavailable [address] + [place] [address] [employer] Unavailable [address] + [place] [address] ADOLFO, VERÓNICA Unavailable [address] + [place] [address] [employer] [employer] Unavailable [address] + [place] [address] ADOLFO, VERÓNICA Unavailable [address] + [place] [address] [employer] Unavailable [address] + [place] [address] ADOLFO, VERÓNICA Unavailable [address] + [place] [address] [employer] [employer] Unavailable [address] + [place] [address] ADOLFO, VERÓNICA Unavailable [address] + [place] [address] [employer] [employer] Unavailable [address] + [place] [address] ADOLFO, VERÓNICA Unavailable [address] + [place] [address] [employer] Unavailable [address] + [place] [address] ADOLFO, VERÓNICA Unavailable [address] + [place] [address] [employer] Unavailable [address] + [place] [address] ADOLFO, VERÓNICA Unavailable [address] + [place] [address] [employer] Unavailable [address] + [place] [address] ADOLFO, VERÓNICA Unavailable [address] + [place] [address] [employer] [employer] Unavailable [address] + [place] [address] ADOLFO, VERÓNICA Unavailable [address] + [place] [address] [employer] Unavailable [address] + [place] [address] ADOLFO, VERÓNICA Unavailable [address] + [place] [address] [employer] Unavailable [address] + [place] [address] ADOLFO, VERÓINCA Unavailable [address] + [place] [address] [employer] Unavailable [address] + [place] [address] ADOLFO, VERÓNICA Unavailable [address] + [place] [address] [employer] Unavailable [address] + [place] [address] ADOLFO, VERÓNICA Unavailable [address] + [place] [address] [employer] Unavailable [address] + [place] [address] ADOLFO, VERÓNICA Unavailable [address] + [place] [address] [employer] Unavailable [address] + [place] [address] ADOLFO, VERÓNICA Unavailable [address] + [place] [address] [employer] [employer] Unavailable [address] + [place] [address] ADOLFO, VERÓNICA Unavailable [address] [facility] + [place] [address] [employer] Unavailable [id number] + [place] [address] ADOLFO, VERÓNICA Unavailable [address] [facility] + [place] [address] [employer] Unavailable [address] + [place] [address] ADOLFO, VERÓNICA Unavailable [address] [facility] + [place] [address] Care Team Providers Name Role Phone DOCTOR, OUT OF TOWN Attending Unavailable Dilshad, Nathan Primary Care Unavailable Dilshad, Nathan Attending Unavailable Dilshad, Nathan Primary Care Unavailable Dilshad, Nathan Referring Unavailable Beckman, Ashly Attending Unavailable Beckman, Ashly Referring Unavailable Dilshad, Nathan Primary Care Unavailable Beckman, Ashly Attending Unavailable Dilshad, Nathan Primary Care Unavailable Herb Khan Attending Unavailable Dilshad, Nathan Referring Unavailable Dilshad, Nathan Primary Care Unavailable Herb Khan Attending Unavailable Dilshad, Nathan Referring Unavailable Dilshad, Nathan Primary Care Unavailable Milligan, Ashly Attending Unavailable Milligan, Ashly Primary Care Unavailable Beckman, Ashly Attending Unavailable Beckman, Ashly Referring Unavailable Dilshad, Nathan Primary Care Unavailable Dilshad, Nathan Primary Care Unavailable Jopperi, Ashly Admitting Unavailable Ashelfah, Ghasem Attending Unavailable Jopperi, Ashly Attending Unavailable Dilshad, Nathan Primary Care Unavailable Jopperi, Ashly Admitting Unavailable Ashelfah, Ghasem Attending Unavailable Dilshad, Nathan Primary Care Unavailable Ashelfah, Ghasem Consulting Unavailable Milligan, Ashly Attending Unavailable Milligan, Ashly Referring Unavailable Milligan, Ashly Primary Care Unavailable Mundo Magaña Attending Unavailable Jopperi, Ashly Referring Unavailable Fabian Membreno Attending Unavailable Ashelfah, Ghasem Referring Unavailable Milligan, Ashly Attending Unavailable Milligan, Ashly Attending Unavailable Milligan, Ashly Primary Care Unavailable ELENA NULL Attending Unavailable ELENA NULL Referring Unavailable Milligan, Ashly Primary Care Unavailable ELENA NULL Consulting Unavailable RAFECAS, HARSHIL Attending Unavailable RAFECAS, HARSHIL Referring Unavailable Milligan, Ashly Primary Care Unavailable Milligan, Ashly Attending Unavailable Milligan, Ashly Primary Care Unavailable Milligan, Ashly Attending Unavailable Milligan, Ashly Referring Unavailable Milligan, Ashly Primary Care Unavailable JUDITH, ASHLY Referring Unavailable ROOFENER, BISI Attending Unavailable ROOFENER, BISI Attending Unavailable ROOFENER, BISI Referring Unavailable ROOFENER, BISI Attending Unavailable ROOFENER, BISI Referring Unavailable ROOFENER, BISI Attending Unavailable ROOFENER, BISI Referring Unavailable ROOFENER, BISI Attending Unavailable ROOFENER, BISI Referring Unavailable JUDITH, ASHLY Attending Unavailable ROOFENER, BISI Attending Unavailable ROOFENER, BISI Referring Unavailable ROOFENER, BISI Attending Unavailable ROOFENER, BISI Referring Unavailable ROOFENER, BISI Attending Unavailable ROOFENER, BISI Referring Unavailable ROOFENER, BISI Attending Unavailable ROOFENER, BISI Referring Unavailable PROBLEMS PROBLEMS DATE TYPE CONDITION / CODE ATTENDING STATUS SOURCE 01/25/2018 Unknown Z20.828 - Contact with MilliganAshly Active [place] and (suspected) Community exposure to other Hospital viral communicable Repository diseases / Z20.828(ICD-10) 01/22/2018 Unknown G50.1 - Atypical [place] NULL Active [place] facial pain / Community G50.1(ICD-10) Hospital Repository 01/15/2018 Unknown 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 Last treatment date: February 05, 2018 Initial treatment date: November 20, 2017 Allergies reviewed: Yes, no change Medication reviewed: Yes, no change Chief Complaint: CC: Migraine without aura. Response to the last Tx/ Current symptoms: Last week had no migraine, Neck tension remains getting worse towards the end of work week. Tongue pain relief lasts for the same day. Last week had ENT injecting his tongue with lidocaine, that provided relief for a day. 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 # of needle inserted: 24 # of needles withdrawn: 24 Fontana were retained for 30 minutes. TDP lamp applied to none. Patient tolerated the procedure well. TCM topicals used: Castillo Ramos Adjunct techniques used: None TDP lamp applied to None Patient tolerated the procedure well. Patient is a suitable candidate for LINDSAY: Not at this time Recommended Follow-up: 1 time a week All questions answered. Patient voiced understanding and expressed feeling comfortable with plan of care. 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 Severity: 5/10 (on the scale 1 to 10, 0 = no pain, 10 = unbearable pain) Duration: 14 months Onset: abrupt Aggravated: talking, posture No other complaints. Acupuncture and danish herbal therapy is not a substitute for conventional medical diagnosis and treatment. Patient agrees that either: 1. A diagnostic exam has been performed by a physician or chiropractor within the last six months regarding the condition for which they are seeking acupuncture treatment. or 2. If no diagnostic exam by a physician or chiropractor has been done within the last six months regarding the condition for which patient is seeking treatment, the Scaler, per [place] Law, recommends that this diagnostic exam be performed. BRENDA Observed: 02/12/2018 Status: COMPLETED Source: [place] 10:[address] [facility] REPOSITORY Office Visit (WEBRIN) ISACC MATA ([id number]) 1975 M Date Time Provider Department 02/12/18 10:30 AM BISI ROSSI During your visit today, we recorded the following information about you: LUIS Hicks 02/12/2018 12:46 PM Signed Isacc Carlosumaker is a 42 year old male February 12, 2018, this is patient's visit 9 this year It has been 1 week since the last acupuncture treatment. Last treatment date: February 05, 2018 Initial treatment date: November 20, 2017 Allergies reviewed: Yes, no change Medication reviewed: Yes, no change Chief Complaint: CC: Migraine without aura. Response to the last Tx/ Current symptoms: Last week had no migraine, Neck tension remains getting worse towards the end of work week. Tongue pain relief lasts for the same day. Last week had ENT injecting his tongue with lidocaine, that provided relief for a day. 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 # of needle inserted: 24 # of needles withdrawn: 24 Fontana were retained for 30 minutes. TDP lamp applied to none. Patient tolerated the procedure well. TCM topicals used: Castillo Ramos Adjunct techniques used: None TDP lamp applied to None Patient tolerated the procedure well. Patient is a suitable candidate for LINDSAY: Not at this time Recommended Follow-up: 1 time a week All questions answered. Patient voiced understanding and expressed feeling comfortable with plan of care. 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 Severity: 5/10 (on the scale 1 to 10, 0 = no pain, 10 = unbearable pain) Duration: 14 months Onset: abrupt Aggravated: talking, posture No other complaints. Acupuncture and danish herbal therapy is not a substitute for conventional medical diagnosis and treatment. Patient agrees that either: 1. A diagnostic exam has been performed by a physician or chiropractor within the last six months regarding the condition for which they are seeking acupuncture treatment. or 2. If no diagnostic exam by a physician or chiropractor has been done within the last six months regarding the condition for which patient is seeking treatment, the Scaler, per [place] Law, recommends that this diagnostic exam be performed. Referring Provider: BISI ROSSI [[id number]] Allergies As of Date: 02/12/2018 Noted Allergy Reaction SULFA (SULFONAMIDE ANTIBIOTICS) 12/23/2015 10 - Anaphylaxis Date Reviewed: 02/12/2018 Reviewed by: Bisi Rossi - Fully Assessed Primary Visit Diagnosis:Migraine without aura, intractable, without status migrainosus [G43.019] Other Visit Diagnosis:Tongue pain [K14.6] Prescriptions as of 02/12/2018 Sig: MULTI VITAMIN ORAL Take by mouth. Problem List As Of Date: 02/12/2018 (None) Encounter Status:Closed by BISI ROSSI V on 02/12/18 SOFT TISSUE NECK WITH Observed: 02/06/2018 Status: F Source: [place] CONTRAST 7:03 AM [facility] [place] [facility] Imaging Services [address] [place] [address] Soft Tissue Neck WITH Contrast MR#: [id number] Acct: [id number] Name: ISACC MATA Rep #: [id number] : 1975 M 42 From: Beau Franco MD PCP: Ashly Milligan MD Status: REG CLI Study: Soft Tissue Neck WITH Contrast Date of Exam: 02/06/18 Exam# [id number] Ordering Dr: Ashly Milligan MD STUDY: CT SOFT TISSUE NECK WITH CONTRAST REASON FOR EXAM: Male, 42 years old. Painful lump at the tip of the thumb. RADIATION DOSAGE (If Supplied By Facility): CTDIvol = ( 20.06 ) mGy, DLP = ( 560.99 ) mGycm TECHNIQUE: The patient was scanned in a multi-detector CT scanner. High resolution transaxial imaging was performed following intravenous administration of 75CC ml of Isovue 300 contrast material. Sagittal and coronal images were reconstructed. Individualized dose optimization techniques were used for this CT. COMPARISON: None. FINDINGS: Normal bilateral parotid glands. 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 Normal bilateral parapharyngeal spaces. Normal bilateral carotid spaces. Normal bilateral sublingual and submandibular glands and spaces. Normal visualized nasopharynx. Normal retropharyngeal space. Normal perivertebral space. Normal visualized bilateral faucial tonsils. The visualized tongue, tongue base and oropharynx are normal. There are minimally enlarged lymph nodes of the neck, with preservation of normal jason architecture, consistent with a reactive lymph hyperplasia. There is no demonstrated solid or cystic mass lesion. There is no abnormal contrast enhancement. Normal epiglottis, bilateral vallecula and hypopharynx. The pre-epiglottic and paraglottic adipose spaces are normal. Normal visualized bilateral piriform sinuses, aryepiglottic folds, vocal cords, and arytenoid-cricoid articulations. Normal subglottic trachea. Normal bilateral lobes of the thyroid gland. Normal visualized pulmonary apices. Normal visualized paranasal sinuses. There is degenerative changes of the cervical spine. Straightening of the normal cervical lordosis. CT/Soft Tissue Neck WITH Contrast IMPRESSION: No significant abnormality is seen. Electronically Signed: Beau Franco MD at 14:34 EST Tel [phone], Service support , CC: Ashly Milligan MD Operations General Agent: Signed PROGRESS Observed: 02/05/2018 Status: COMPLETED Source: [place] 1:34 PM [facility] REPOSITORY HNO ID: [id number] Author: Bisi Rossi Service: (none) Author Type: Diplomat of Acupuncture Type: Progress Notes Filed: 02/05/2018 1:38 PM Note Text: Isacc Mata is a 42 year old male February 05, 2018, this is patient's visit 8 this year It has been 2 weeks since the last acupuncture treatment. Last treatment date: January 22, 2018 Initial treatment date: November 20, 2017 Allergies reviewed: yes, no change Medication reviewed: yes CC: Migraine without aura. Response to the last Tx/ Current symptoms: Migraine continues to be intermittent, though he reduced severity and duration, mostly comes toward the end of a week. Tongue tightness relief lasts for about 2-3 days after acupuncture. 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 # of needle inserted: 24 # of needles withdrawn: 24 Fontana were retained for 30 minutes. TDP lamp applied to none. Patient tolerated the procedure well. Patient is a suitable candidate for LINDSAY: NO Recommended Follow-up: 1 time a week 30 minute face to face time spent with patient Bisi Rossi Beau November 20, 2017 Initial visit notes: Chief complaint: frequent migraine headache mostly on the left side, frequently provoked by posture, especially during computer work Severity: 4-6/10 Duration: many years Onset: insidious Objectively: Hyper-tense on palpation cervical and sublingual muscles with multiple trigger points. 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 Severity: 5/10 (on the scale 1 to 10, 0 = no pain, 10 = unbearable pain) Duration: 14 months Onset: abrupt Aggravated: talking, posture No other complaints. Acupuncture and danish herbal therapy is not a substitute for conventional medical diagnosis and treatment. Patient agrees that either: 1. A diagnostic exam has been performed by a physician or chiropractor within the last six months regarding the condition for which they are seeking acupuncture treatment. or 2. If no diagnostic exam by a physician or chiropractor has been done within the last six months regarding the condition for which patient is seeking treatment, the Scaler, per [place] Law, recommends that this diagnostic exam be performed. BRENDA Observed: 02/05/2018 Status: COMPLETED Source: [place] 11:[address] [facility] REPOSITORY Office Visit (WEBRIN) ISACC MATA ([id number]) 1975 M Date Time Provider Department 02/05/18 11:00 AM BISI ROSSI During your visit today, we recorded the following information about you: LUIS Hicks 02/05/2018 1:38 PM Signed Isaccsushil Mata is a 42 year old male February 05, 2018, this is patient's visit 8 this year It has been 2 weeks since the last acupuncture treatment. Last treatment date: January 22, 2018 Initial treatment date: November 20, 2017 Allergies reviewed: yes, no change Medication reviewed: yes CC: Migraine without aura. Response to the last Tx/ Current symptoms: Migraine continues to be intermittent, though he reduced severity and duration, mostly comes toward the end of a week. Tongue tightness relief lasts for about 2-3 days after acupuncture. 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 # of needle inserted: 24 # of needles withdrawn: 24 Fontana were retained for 30 minutes. TDP lamp applied to none. Patient tolerated the procedure well. Patient is a suitable candidate for LINDSAY: NO Recommended Follow-up: 1 time a week 30 minute face to face time spent with patient Bisi Rossi Beau November 20, 2017 Initial visit notes: Chief complaint: frequent migraine headache mostly on the left side, frequently provoked by posture, especially during computer work Severity: 4-6/10 Duration: many years Onset: insidious Objectively: Hyper-tense on palpation cervical and sublingual muscles with multiple trigger points. 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 Severity: 5/10 (on the scale 1 to 10, 0 = no pain, 10 = unbearable pain) Duration: 14 months Onset: abrupt Aggravated: talking, posture No other complaints. Acupuncture and danish herbal therapy is not a substitute for conventional medical diagnosis and treatment. Patient agrees that either: 1. A diagnostic exam has been performed by a physician or chiropractor within the last six months regarding the condition for which they are seeking acupuncture treatment. or 2. If no diagnostic exam by a physician or chiropractor has been done within the last six months regarding the condition for which patient is seeking treatment, the Scaler, per [place] Law, recommends that this diagnostic exam be performed. Referring Provider: BISI ROSSI [[id number]] Allergies As of Date: 02/05/2018 Noted Allergy Reaction SULFA (SULFONAMIDE ANTIBIOTICS) 12/23/2015 10 - Anaphylaxis Date Reviewed: 02/05/2018 Reviewed by: Bisi Rossi - Fully Assessed Primary Visit Diagnosis:Migraine without aura, intractable, without status migrainosus [G43.019] Other Visit Diagnosis:Tongue pain [K14.6] Prescriptions as of 02/05/2018 Sig: MULTI VITAMIN ORAL Take by mouth. Problem List As Of Date: 02/05/2018 (None) Encounter Status:Closed by BISI ROSSI V on 02/05/18 BRAIN W/WO CONTRAST Observed: 01/22/2018 Status: F Source: [place] 3:30 PM [facility] [place] [facility] Imaging Services [address] [place] [address] Brain W/WO Contrast MR#: [id number] Acct: [id number] Name: ISACC MATA Rep #: [id number] : 1975 M 42 From: Alma Vora PCP: Ashly Milligan MD Status: REG CLI Study: Brain W/WO Contrast Date of Exam: 01/22/18 Exam# [id number] Ordering Dr: DANY MUIR STUDY: MRI BRAIN WITH AND WITHOUT CONTRAST REASON FOR EXAM: Male, 42 years old. MASS -- pain/ pulling sensation tip of tongue x 15 months, bx done back of tongue previously. TECHNIQUE: Standardized multiplanar fat and water weighted pulse sequences were obtained. 10 ml of Gadavist contrast material was administered intravenously for the contrast portion of the examination. COMPARISON: CT sinuses dated March 24, 2018 FINDINGS: Normal size of the ventricles and extra-axial spaces for the patient's age. Normal white matter tracts of the supratentorial brain. Normal bilateral basal ganglia. Normal thalami. There is no extra-axial fluid accumulation. Normal flow voids within the major intracranial circulation suggesting patency by spin echo criteria. Normal venous enhancement. There is no enhancing intra-axial or extra-axial abnormality. Normal sella turcica, pituitary gland, infundibular stalk, optic chiasm and hypothalamus. Normal tectal plate and pineal gland. Normal midbrain, sylvia and medulla. Normal cerebellum. Normal basal cisterns. Normal bilateral temporal bones. Normal bilateral internal auditory canals. No demonstrated orbital abnormality, within the constraints of a routine brain study. Normal visualized paranasal sinuses. Normal calvarium and skull base. Normal visualized soft tissue structures. Normal visualized upper cervical spine. There are no demonstrated masses of the tongue. Please note that MRI evaluation of the tongue is less sensitive than CT and physical examination. MRI/Brain W/WO Contrast IMPRESSION: Unremarkable MRI of the brain. No demonstrated masses of the tongue as described above. Electronically Signed: Alma Vora MD at 15:55 EST Tel , Service support , CC: DANY Milligan MD Operations General Agent: Signed PROGRESS Observed: 01/22/2018 Status: COMPLETED Source: [facility] 11:57 AM [facility] [place] REPOSITORY O ID: [id number] Author: Bisi Rossi Service: (none) Author Type: Diplomat of Acupuncture Type: Progress Notes Filed: 01/22/2018 2:07 PM Note Text: Isacc Mata is a 42 year old male January 22, 2018, this is patient's visit 7 this year It has been 1 week since the last acupuncture treatment. Last treatment date: January 15, 2018 Initial treatment date: November 20, 2017 Allergies reviewed: yes, no change Medication reviewed: yes CC: Migraine without aura. December 18, 2017: Response to the last Tx/ Current symptoms: Migraine is intermittent, has reduced severity and duration. Tongue tightness is about the same. 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 Severity: 5/10 (on the scale 1 to 10, 0 = no pain, 10 = unbearable pain) Duration: 14 months Onset: abrupt Aggravated: talking, posture No other complaints. 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 # of needle inserted: 24 # of needles withdrawn: 24 Fontana were retained for 30 minutes. TDP lamp applied to none. Patient tolerated the procedure well. Patient is a suitable candidate for LINDSAY: NO Recommended Follow-up: 1 time a week 30 minute face to face time spent with patient Bisi Rudolph Rossi LAc Acupuncture and danish herbal therapy is not a substitute for conventional medical diagnosis and treatment. Patient agrees that either: 1. A diagnostic exam has been performed by a physician or chiropractor within the last six months regarding the condition for which they are seeking acupuncture treatment. or 2. If no diagnostic exam by a physician or chiropractor has been done within the last six months regarding the condition for which patient is seeking treatment, the Scaler, per [place] Law, recommends that this diagnostic exam be performed. BRENDA Observed: 01/22/2018 Status: COMPLETED Source: [place] 11:[address] [facility] [place] REPOSITORY Office Visit (WEBRIN) ISACC MATA ([id number]) 1975 M Date Time Provider Department 01/22/18 11:00 AM BISI ROSSI During your visit today, we recorded the following information about you: LUIS Hicks 01/22/2018 2:07 PM Signed Isacc Weir Adolfo is a 42 year old male January 22, 2018, this is patient's visit 7 this year It has been 1 week since the last acupuncture treatment. Last treatment date: January 15, 2018 Initial treatment date: November 20, 2017 Allergies reviewed: yes, no change Medication reviewed: yes CC: Migraine without aura. December 18, 2017: Response to the last Tx/ Current symptoms: Migraine is intermittent, has reduced severity and duration. Tongue tightness is about the same. 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 Severity: 5/10 (on the scale 1 to 10, 0 = no pain, 10 = unbearable pain) Duration: 14 months Onset: abrupt Aggravated: talking, posture No other complaints. 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 # of needle inserted: 24 # of needles withdrawn: 24 Fontana were retained for 30 minutes. TDP lamp applied to none. Patient tolerated the procedure well. Patient is a suitable candidate for LINDSAY: NO Recommended Follow-up: 1 time a week 30 minute face to face time spent with patient Bisi Rossi LAc Acupuncture and danish herbal therapy is not a substitute for conventional medical diagnosis and treatment. Patient agrees that either: 1. A diagnostic exam has been performed by a physician or chiropractor within the last six months regarding the condition for which they are seeking acupuncture treatment. or 2. If no diagnostic exam by a physician or chiropractor has been done within the last six months regarding the condition for which patient is seeking treatment, the Scaler, per [place] Law, recommends that this diagnostic exam be performed. Referring Provider: BISI ROSSI [[id number]] Allergies As of Date: 01/22/2018 Noted Allergy Reaction SULFA (SULFONAMIDE ANTIBIOTICS) 12/23/2015 10 - Anaphylaxis Date Reviewed: 01/22/2018 Reviewed by: Bisi Rossi - Fully Assessed Primary Visit Diagnosis:Migraine without aura, intractable, without status migrainosus [G43.019] Other Visit Diagnosis:Tongue pain [K14.6] Prescriptions as of 01/22/2018 Sig: MULTI VITAMIN ORAL Take by mouth. Problem List As Of Date: 01/22/2018 (None) Encounter Status:Closed by BISI ROSSI V on 01/22/18 PROGRESS Observed: 01/15/2018 Status: COMPLETED Source: [facility] 4:27 PM [facility] O ID: [id number] Author: Bisi Rossi Service: (none) Author Type: Diplomat of Acupuncture Type: Progress Notes Filed: 01/15/2018 4:28 PM Note Text: Isacc Mata is a 42 year old male January 15, 2018, this is patient's visit 6 this year It has been 1 week since the last acupuncture treatment. Last treatment date: January 08, 2018 Initial treatment date: November 20, 2017 Allergies reviewed: yes, no change Medication reviewed: yes CC: Migraine without aura. December 18, 2017: Response to the last Tx/ Current symptoms: Migraine is intermittent, has reduced severity and diuration, Tongue tightness is about the same. 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 Severity: 5/10 (on the scale 1 to 10, 0 = no pain, 10 = unbearable pain) Duration: 14 months Onset: abrupt Aggravated: talking, posture No other complaints. 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 # of needle inserted: 24 # of needles withdrawn: 24 Fontana were retained for 30 minutes. TDP lamp applied to none. Patient tolerated the procedure well. Patient is a suitable candidate for LINDSAY: NO Recommended Follow-up: 1 time a week 30 minute face to face time spent with patient Bisi Rudolph Rossi LAc Acupuncture and danish herbal therapy is not a substitute for conventional medical diagnosis and treatment. Patient agrees that either: 1. A diagnostic exam has been performed by a physician or chiropractor within the last six months regarding the condition for which they are seeking acupuncture treatment. or 2. If no diagnostic exam by a physician or chiropractor has been done within the last six months regarding the condition for which patient is seeking treatment, the Scaler, per [place] Law, recommends that this diagnostic exam be performed. BRENDA Observed: 01/15/2018 Status: COMPLETED Source: [place] 1:[address] [facility] REPOSITORY Office Visit (WEBRIN) ISACC MATA ([id number]) 1975 M Date Time Provider Department 01/15/18 1:30 PM BISI ROSSI During your visit today, we recorded the following information about you: Bisi LUIS Rossi 01/15/2018 4:28 PM Signed Isacc Mata is a 42 year old male January 15, 2018, this is patient's visit 6 this year It has been 1 week since the last acupuncture treatment. Last treatment date: January 08, 2018 Initial treatment date: November 20, 2017 Allergies reviewed: yes, no change Medication reviewed: yes CC: Migraine without aura. December 18, 2017: Response to the last Tx/ Current symptoms: Migraine is intermittent, has reduced severity and diuration, Tongue tightness is about the same. 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 Severity: 5/10 (on the scale 1 to 10, 0 = no pain, 10 = unbearable pain) Duration: 14 months Onset: abrupt Aggravated: talking, posture No other complaints. 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 # of needle inserted: 24 # of needles withdrawn: 24 Fontana were retained for 30 minutes. TDP lamp applied to none. Patient tolerated the procedure well. Patient is a suitable candidate for LINDSAY: NO Recommended Follow-up: 1 time a week 30 minute face to face time spent with patient Bisi Rudolph Rossi LAc Acupuncture and danish herbal therapy is not a substitute for conventional medical diagnosis and treatment. Patient agrees that either: 1. A diagnostic exam has been performed by a physician or chiropractor within the last six months regarding the condition for which they are seeking acupuncture treatment. or 2. If no diagnostic exam by a physician or chiropractor has been done within the last six months regarding the condition for which patient is seeking treatment, the Scaler, per [place] Law, recommends that this diagnostic exam be performed. Referring Provider: BISI ROSSI [[id number]] Allergies As of Date: 01/15/2018 Noted Allergy Reaction SULFA (SULFONAMIDE ANTIBIOTICS) 12/23/2015 10 - Anaphylaxis Date Reviewed: 01/15/2018 Reviewed by: Bisi Rossi - Fully Assessed Primary Visit Diagnosis:Migraine without aura, intractable, without status migrainosus [G43.019] Other Visit Diagnosis:Tongue pain [K14.6] Prescriptions as of 01/15/2018 Sig: MULTI VITAMIN ORAL Take by mouth. Problem List As Of Date: 01/15/2018 (None) Encounter Status:Closed by BISI ROSSI V on 01/15/18 THYROID STIM HORMONE Collected: 01/15/2018 Status: F Source: [facility] (T[facility]) 7:14 AM [facility] [place] TYPE CODE TESTS RESULT OUT OF RANGE REFERENCE UNITS LAB L501.9520 0.358-3.74 uIU/mL Normal TSH 1.82 Performed By: #### [id number] #### [facility] [address] [place], [address] PROGRESS Observed: 01/08/2018 Status: COMPLETED Source: [facility] 5:07 PM [facility] RE[facility] HNO ID: [id number] Author: Bisi Rossi Service: (none) Author Type: Diplomat of Acupuncture Type: Progress Notes Filed: 01/08/2018 5:09 PM Note Text: Isacc Mata is a 42 year old male January 08, 2018, this is patient's visit 5 this year It has been 2 week since the last acupuncture treatment. Last treatment date: December 27, 2017 Initial treatment date: November 20, 2017 Allergies reviewed: yes, no change Medication reviewed: yes CC: Migraine without aura. December 18, 2017: Response to the last Tx/ Current symptoms: Migraine is intermittent, has reduced severity and diuration, Tongue tightness is about the same. 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 Severity: 5/10 (on the scale 1 to 10, 0 = no pain, 10 = unbearable pain) Duration: 14 months Onset: abrupt Aggravated: talking, posture No other complaints. 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 # of needle inserted: 24 # of needles withdrawn: 24 Fontana were retained for 30 minutes. TDP lamp applied to none. Patient tolerated the procedure well. Patient is a suitable candidate for LINDSAY: NO Recommended Follow-up: 1 time a week 30 minute face to face time spent with patient Bisi ScalesShantel Rossi LAc Acupuncture and danish herbal therapy is not a substitute for conventional medical diagnosis and treatment. Patient agrees that either: 1. A diagnostic exam has been performed by a physician or chiropractor within the last six months regarding the condition for which they are seeking acupuncture treatment. or 2. If no diagnostic exam by a physician or chiropractor has been done within the last six months regarding the condition for which patient is seeking treatment, the Scaler, per [place] Law, recommends that this diagnostic exam be performed. HERLINDAOV Observed: 01/08/2018 Status: COMPLETED Source: [place] 3:00 PM [facility] REPOS[facility]ORY Office Visit (WEBRIN) ISACC MATA ([id number]) 1975 M Date Time Provider Department 01/08/18 3:00 PM BISI ROSSI During your visit today, we recorded the following information about you: ULIS Hicks 01/08/2018 5:09 PM Signed Isacc Mata is a 42 year old male January 08, 2018, this is patient's visit 5 this year It has been 2 week since the last acupuncture treatment. Last treatment date: December 27, 2017 Initial treatment date: November 20, 2017 Allergies reviewed: yes, no change Medication reviewed: yes CC: Migraine without aura. December 18, 2017: Response to the last Tx/ Current symptoms: Migraine is intermittent, has reduced severity and diuration, Tongue tightness is about the same. 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 Severity: 5/10 (on the scale 1 to 10, 0 = no pain, 10 = unbearable pain) Duration: 14 months Onset: abrupt Aggravated: talking, posture No other complaints. 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 # of needle inserted: 24 # of needles withdrawn: 24 Fontana were retained for 30 minutes. TDP lamp applied to none. Patient tolerated the procedure well. Patient is a suitable candidate for LINDSAY: NO Recommended Follow-up: 1 time a week 30 minute face to face time spent with patient Bisi Rossi LAc Acupuncture and danish herbal therapy is not a substitute for conventional medical diagnosis and treatment. Patient agrees that either: 1. A diagnostic exam has been performed by a physician or chiropractor within the last six months regarding the condition for which they are seeking acupuncture treatment. or 2. If no diagnostic exam by a physician or chiropractor has been done within the last six months regarding the condition for which patient is seeking treatment, the Scaler, per [place] Law, recommends that this diagnostic exam be performed. Referring Provider: BISI ROSSI [[id number]] Allergies As of Date: 01/08/2018 Noted Allergy Reaction SULFA (SULFONAMIDE ANTIBIOTICS) 12/23/2015 10 - Anaphylaxis Date Reviewed: 01/08/2018 Reviewed by: Bisi Rossi - Fully Assessed Primary Visit Diagnosis:Migraine without aura, intractable, without status migrainosus [G43.019] Other Visit Diagnosis:Tongue pain [K14.6] Prescriptions as of 01/08/2018 Sig: MULTI VITAMIN ORAL Take by mouth. Problem List As Of Date: 01/08/2018 (None) Encounter Status:Closed by BISI ROSSI V on 01/08/18 PROGRESS Observed: 12/27/2017 Status: COMPLETED Source: [place] 11:[address] [facility] REPOSITORY [facility] ID: [id number] Author: Bisi Rossi Service: (none) Author Type: Diplomat of Acupuncture Type: Progress Notes Filed: 12/27/2017 11:36 AM Note Text: Isacc Mata is a 42 year old male December 27, 2017, this is patient's visit 4 this year It has been 2 days since the last acupuncture treatment. Last treatment date: December 25, 2017 Initial treatment date: November 20, 2017 Allergies reviewed: yes, no change Medication reviewed: yes CC: Migraine without aura. December 18, 2017: Response to the last Tx/ Current symptoms: Had some headache improvement for few days after last Tx, Today has moderate headache Tongue tightness is about the same. Low back has resolved. 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 Severity: 5/10 (on the scale 1 to 10, 0 = no pain, 10 = unbearable pain) Duration: 14 months Onset: abrupt Aggravated: talking, posture No other complaints. 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 # of needle inserted: 24 # of needles withdrawn: 24 Fontana were retained for 30 minutes. TDP lamp applied to none. Patient tolerated the procedure well. Patient is a suitable candidate for LINDSAY: NO Recommended Follow-up: 1 time a week 30 minute face to face time spent with patient Bisi ScalesShantel Rossi LAc Acupuncture and danish herbal therapy is not a substitute for conventional medical diagnosis and treatment. Patient agrees that either: 1. A diagnostic exam has been performed by a physician or chiropractor within the last six months regarding the condition for which they are seeking acupuncture treatment. or 2. If no diagnostic exam by a physician or chiropractor has been done within the last six months regarding the condition for which patient is seeking treatment, the Scaler, per [place] Law, recommends that this diagnostic exam be performed. BRENDA Observed: 12/27/2017 Status: COMPLETED Source: [place] 11:[address] [facility] REPOSITORY Office Visit (MOSES) ISACC MATA ([id number]) 1975 M Date Time Provider Department 12/27/17 11:00 AM JAKEBISI MOSES During your visit today, we recorded the following information about you: LUIS Hicks 12/27/2017 11:36 AM Signed Isacc Mata is a 42 year old male December 27, 2017, this is patient's visit 4 this year It has been 2 days since the last acupuncture treatment. Last treatment date: December 25, 2017 Initial treatment date: November 20, 2017 Allergies reviewed: yes, no change Medication reviewed: yes CC: Migraine without aura. December 18, 2017: Response to the last Tx/ Current symptoms: Had some headache improvement for few days after last Tx, Today has moderate headache Tongue tightness is about the same. Low back has resolved. 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 Severity: 5/10 (on the scale 1 to 10, 0 = no pain, 10 = unbearable pain) Duration: 14 months Onset: abrupt Aggravated: talking, posture No other complaints. 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 # of needle inserted: 24 # of needles withdrawn: 24 Fontana were retained for 30 minutes. TDP lamp applied to none. Patient tolerated the procedure well. Patient is a suitable candidate for LINDSAY: NO Recommended Follow-up: 1 time a week 30 minute face to face time spent with patient Bisi Rossi LAc Acupuncture and danish herbal therapy is not a substitute for conventional medical diagnosis and treatment. Patient agrees that either: 1. A diagnostic exam has been performed by a physician or chiropractor within the last six months regarding the condition for which they are seeking acupuncture treatment. or 2. If no diagnostic exam by a physician or chiropractor has been done within the last six months regarding the condition for which patient is seeking treatment, the Scaler, per [place] Law, recommends that this diagnostic exam be performed. Referring Provider: BISI ROSSI [[id number]] Allergies As of Date: 12/27/2017 Noted Allergy Reaction SULFA (SULFONAMIDE ANTIBIOTICS) 12/23/2015 10 - Anaphylaxis Date Reviewed: 12/27/2017 Reviewed by: Bisi Rossi - Fully Assessed Primary Visit Diagnosis:Migraine without aura, intractable, without status migrainosus [G43.019] Prescriptions as of 12/27/2017 Sig: MULTI VITAMIN ORAL Take by mouth. Problem List As Of Date: 12/27/2017 (None) Encounter Status:Closed by BIIS ROSSI V on 12/27/17 PROGRESS Observed: 12/25/2017 Status: COMPLETED Source: [place] 3:48 PM [facility] [place] REPOSITORY [facility] ID: [id number] Author: Bisi Rossi Service: (none) Author Type: Diplomat of Acupuncture Type: Progress Notes Filed: 12/25/2017 4:00 PM Note Text: Isacc Mata is a 42 year old male December 25, 2017, this is patient's visit 3 this year It has been 1 week since the last acupuncture treatment. Last treatment date: December 18, 2017 Initial treatment date: November 20, 2017 Allergies reviewed: yes, no change Medication reviewed: yes December 18, 2017: Response to the last Tx/ Current symptoms: Had some headache improvement for few days after last Tx, In general has migraine 2 times per week, that interferes with his work. Today has no headache Tongue tightness is about the same. Pulled his low back last week. 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 Severity: 5/10 (on the scale 1 to 10, 0 = no pain, 10 = unbearable pain) Duration: 14 months Onset: abrupt Aggravated: talking, posture No other complaints. 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 # of needle inserted: 24 # of needles withdrawn: 24 Fontana were retained for 30 minutes. TDP lamp applied to none. Patient tolerated the procedure well. Patient is a suitable candidate for LINDSAY: NO Recommended Follow-up: 1 time a week 30 minute face to face time spent with patient Bisi Galdamez Jake Yanez Acupuncture and danish herbal therapy is not a substitute for conventional medical diagnosis and treatment. Patient agrees that either: 1. A diagnostic exam has been performed by a physician or chiropractor within the last six months regarding the condition for which they are seeking acupuncture treatment. or 2. If no diagnostic exam by a physician or chiropractor has been done within the last six months regarding the condition for which patient is seeking treatment, the Scaler, per [place] Law, recommends that this diagnostic exam be performed. BRENDA Observed: 12/25/2017 Status: COMPLETED Source: [place] 3:30 PM [facility] REPOSITORY Office Visit (WEBRIN) ISACC MATA ([id number]) 1975 M Date Time Provider Department 12/25/17 3:30 PM BISI ROSSI During your visit today, we recorded the following information about you: LUIS Hicks 12/25/2017 4:00 PM Signed Isacc Mata is a 42 year old male December 25, 2017, this is patient's visit 3 this year It has been 1 week since the last acupuncture treatment. Last treatment date: December 18, 2017 Initial treatment date: November 20, 2017 Allergies reviewed: yes, no change Medication reviewed: yes December 18, 2017: Response to the last Tx/ Current symptoms: Had some headache improvement for few days after last Tx, In general has migraine 2 times per week, that interferes with his work. Today has no headache Tongue tightness is about the same. Pulled his low back last week. 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 Severity: 5/10 (on the scale 1 to 10, 0 = no pain, 10 = unbearable pain) Duration: 14 months Onset: abrupt Aggravated: talking, posture No other complaints. 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 # of needle inserted: 24 # of needles withdrawn: 24 Fontana were retained for 30 minutes. TDP lamp applied to none. Patient tolerated the procedure well. Patient is a suitable candidate for LINDSAY: NO Recommended Follow-up: 1 time a week 30 minute face to face time spent with patient Bisi ScalesShantel Rossi LAc Acupuncture and danish herbal therapy is not a substitute for conventional medical diagnosis and treatment. Patient agrees that either: 1. A diagnostic exam has been performed by a physician or chiropractor within the last six months regarding the condition for which they are seeking acupuncture treatment. or 2. If no diagnostic exam by a physician or chiropractor has been done within the last six months regarding the condition for which patient is seeking treatment, the Scaler, per [place] Law, recommends that this diagnostic exam be performed. Referring Provider: BISI ROSSI [[id number]] Allergies As of Date: 12/25/2017 Noted Allergy Reaction SULFA (SULFONAMIDE ANTIBIOTICS) 12/23/2015 10 - Anaphylaxis Date Reviewed: 12/25/2017 Reviewed by: Bisi Rossi - Fully Assessed Primary Visit Diagnosis:Migraine without aura, intractable, without status migrainosus [G43.019] Other Visit Diagnosis:Tongue pain [K14.6] Prescriptions as of 12/25/2017 Sig: MULTI VITAMIN ORAL Take by mouth. Problem List As Of Date: 12/25/2017 (None) Encounter Status:Closed by BISI ROSSI V on 12/25/17 PROGRESS Observed: 12/18/2017 Status: COMPLETED Source: [place] 11:34 AM [facility] REPOSITORY [facility] ID: [id number] Author: Bisi Rossi Service: (none) Author Type: Diplomat of Acupuncture Type: Progress Notes Filed: 12/18/2017 11:40 AM Note Text: Isacc Mata is a 42 year old male December 18, 2017, this is patient's visit 2 this year It has been 4 weeks since the last acupuncture treatment. Last treatment date: November 20, 2017 Initial treatment date: November 20, 2017 Allergies reviewed: yes, no change Medication reviewed: yes, started NSAID December 18, 2017: Response to the last Tx/ Current symptoms: Had some headache improvement for few days after last Tx, In general has migraine 2 times per week, that interferes with his work. Today headache pain is 2/10 located in the occiput, Tongue tightness is slightly improved. 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 Severity: 5/10 (on the scale 1 to 10, 0 = no pain, 10 = unbearable pain) Duration: 14 months Onset: abrupt Aggravated: talking, posture No other complaints. 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 # of needle inserted: 16 # of needles withdrawn: 16 Fontana were retained for 30 minutes. TDP lamp applied to none. Patient tolerated the procedure well. Patient is a suitable candidate for LINDSAY: NO Recommended Follow-up: 1-2 times a week 30 minute face to face time spent with patient Bisi Rossi LAc Acupuncture and danish herbal therapy is not a substitute for conventional medical diagnosis and treatment. Patient agrees that either: 1. A diagnostic exam has been performed by a physician or chiropractor within the last six months regarding the condition for which they are seeking acupuncture treatment. or 2. If no diagnostic exam by a physician or chiropractor has been done within the last six months regarding the condition for which patient is seeking treatment, the Scaler, per [place] Law, recommends that this diagnostic exam be performed. BRENDA Observed: 12/18/2017 Status: COMPLETED Source: [place] 11:[address] [facility] REPOSITORY Office Visit (WEBRIN) ISACC MATA ([id number]) 1975 M Date Time Provider Department 12/18/17 11:00 AM BISI ROSSI During your visit today, we recorded the following information about you: Bisi Rossi, [facility] 12/18/2017 11:40 AM Signed Isacc Mata is a 42 year old male December 18, 2017, this is patient's visit 2 this year It has been 4 weeks since the last acupuncture treatment. Last treatment date: November 20, 2017 Initial treatment date: November 20, 2017 Allergies reviewed: yes, no change Medication reviewed: yes, started NSAID December 18, 2017: Response to the last Tx/ Current symptoms: Had some headache improvement for few days after last Tx, In general has migraine 2 times per week, that interferes with his work. Today headache pain is 2/10 located in the occiput, Tongue tightness is slightly improved. 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 Severity: 5/10 (on the scale 1 to 10, 0 = no pain, 10 = unbearable pain) Duration: 14 months Onset: abrupt Aggravated: talking, posture No other complaints. 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 # of needle inserted: 16 # of needles withdrawn: 16 Fontana were retained for 30 minutes. TDP lamp applied to none. Patient tolerated the procedure well. Patient is a suitable candidate for LINDSAY: NO Recommended Follow-up: 1-2 times a week 30 minute face to face time spent with patient Bisi ScalesShantel Luis Albertorobe Yanez Acupuncture and danish herbal therapy is not a substitute for conventional medical diagnosis and treatment. Patient agrees that either: 1. A diagnostic exam has been performed by a physician or chiropractor within the last six months regarding the condition for which they are seeking acupuncture treatment. or 2. If no diagnostic exam by a physician or chiropractor has been done within the last six months regarding the condition for which patient is seeking treatment, the Scaler, per [place] Law, recommends that this diagnostic exam be performed. Referring Provider: BISI ROSSI [[id number]] Allergies As of Date: 12/18/2017 Noted Allergy Reaction SULFA (SULFONAMIDE ANTIBIOTICS) 12/23/2015 10 - Anaphylaxis Date Reviewed: 12/18/2017 Reviewed by: Bisi Rossi - Fully Assessed Primary Visit Diagnosis:Migraine without aura, intractable, without status migrainosus [G43.019] Other Visit Diagnosis:Tongue pain [K14.6] Prescriptions as of 12/18/2017 Sig: MULTI VITAMIN ORAL Take by mouth. Problem List As Of Date: 12/18/2017 (None) Encounter Status:Closed by BISI ROSSI V on 12/18/17 MISCELLANEOUS LAB Collected: 11/29/2017 Status: F Source: [place] PROCEDURE 3 8:18 AM [facility] [place] Order Comment: List Test(s) Ordered by Physician: B6 #[id number] PLASMA FROZEN PFL TYPE CODE TESTS RESULT OUT OF RANGE REFERENCE UNITS LAB L801.1545 Normal [facility] LAB TEST 3 Result Comment: TEST RESULT LIMITS Vitamin B6, Plasma Vitamin B6 43.3 ug/L 5.3 - 46.7 Disclaimer: This test was developed and its performance characteristics determined by [facility]. It has not been cleared or approved by the Food and Drug Administration. TESTING PERFORMED AT [facility]. ORIGINAL REPORT ON FILE IN LAB CONTAINS ADDITIONAL TEST SITE INFORMATION. Performed By: #### L801.1545 #### [facility] [address] [place], [address] MISCELLANEOUS LAB Collected: 11/29/2017 Status: F Source: [place] PROCEDURE 2 8:18 AM [facility] [place] Order Comment: List Test(s) Ordered by Physician: B3 #[id number] SERUM RED TOP FROZEN TYPE CODE TESTS RESULT OUT OF RANGE REFERENCE UNITS LAB L801.1543 Normal [facility] LAB TEST 2 Result Comment: TEST RESULT UNITS REFERENCE INTERVAL VITAMIN B3 (NIACIN+METABOLITES) NICOTINAMIDE 21.8 ng/mL 5.2 - 72.1 NICOTINIC ACID <5.0 ng/mL 0.0 - 5.0 TESTING PERFORMED AT [facility]. ORIGINAL REPORT ON FILE IN LAB CONTAINS ADDITIONAL TEST SITE INFORMATION. Performed By: #### L801.1543 #### [facility] [address] [place] [address] [place], [address] [facility] Collected: 11/29/2017 Status: F Source: [place] PROCEDURE 4 8:18 AM [facility] [place] Order Comment: List Test(s) Ordered by Physician: B5 #[id number] SERUM RED TOP RT TYPE CODE TESTS RESULT OUT OF RANGE REFERENCE UNITS LAB L801.1547 Normal [facility] LAB TEST 4 Result Comment: TEST RESULT UNITS REFERENCE INTERVAL Vitamin B5 216.0 ng/mL 12.9 - 253.1 Results of this test are for Investigational Purposes Only. The performance characteristics of this assay have been determined by [employer]. The result should not be used as a diagnostic procedure without confirmation of the diagnosis by another medically established diagnostic product or procedure. TESTING PERFORMED AT [facility]. ORIGINAL REPORT ON FILE IN LAB CONTAINS ADDITIONAL TEST SITE INFORMATION. Performed By: #### L801.1547 #### [facility] [address] [place], [address] MISCELLANEOUS LAB Collected: 11/29/2017 Status: F Source: [place] PROCEDURE 8:18 AM [facility] [place] [facility] Order Comment: Test(s) Ordered: B2 #[id number] WB FROZEN PFL TYPE CODE TESTS RESULT OUT OF RANGE REFERENCE UNITS LAB L801.1541 Normal [facility] LAB TEST Result Comment: TEST RESULT UNITS REF INTERVAL Vitamin B2, Whole Blood 218 ug/L 137 - 370 Reference interval reflects flavinadeninedinucleotide (FAD), that accounts for approximately 90% of the total riboflavin in whole blood. TESTING PERFORMED AT [facility]. ORIGINAL REPORT ON FILE IN LAB CONTAINS ADDITIONAL TEST SITE INFORMATION. Performed By: #### L801.1541 #### [facility] [address] [place], [address] VITAMIN B12 Collected: 11/29/2017 Status: F Source: [place] 8:08 AM [facility] [place] TYPE CODE TESTS RESULT OUT OF RANGE REFERENCE UNITS LAB L503.0105 211-911 pg/mL Normal Vitamin B12 641 Performed By: #### L503.0105, L506.1000 #### [facility] [address] [place], [address] VITAMIN D,25 HYDROXY Collected: 11/29/2017 Status: F Source: [place] 8:08 AM [facility] [place] [facility] TYPE CODE TESTS RESULT OUT OF REFERENCE UNITS RANGE LAB L506.1000 29.95-100.01 ng/mL Low Vitamin D 19.2 25-OH Result Comment: Vitamin D 25(OH) Status Range Deficiency <20 ng/mL (50nmol/L) Insuffciency 20 - 30 ng/mL (50 - 75 nmol/L) Sufficiency 30 - 100 ng/mL (75 - 250 nmol/L) Toxicity >100 ng/mL (>250 nmol/L) Performed By: #### L503.0105, L506.1000 #### [facility] [address] [place], [address] BASIC METABOLIC Collected: 11/29/2017 Status: F Source: [place] PROFILE (BMP) 8:08 AM [facility] [place] [facility] Order Comment: Comments: HERPES 6 VIRAL LOAD #[id number] EDTA PLASMA FR Is Patient Taking Vitamins or Folic Acid Supplements? N TYPE CODE TESTS RESULT OUT OF RANGE REFERENCE UNITS LAB L501.0100 74-106 mg/dL Normal GLU 94 Result Comment: Please note revised GLUCOSE reference range effective 2017. LAB L501.1000 7-18 mg/dL Normal BUN 12 LAB L501.1100 0.70-1.30 mg/dL Normal CREAT,SERUM 0.92 Result Comment: The validity of the calculated GFR AND GFRAA in patients over 70 years has not been determined. Clinical correlation is essential. LAB L501.1110 >60 mL/min Normal EST GFR 97 Result Comment: Non- GFR Calc LAB L501.1115 >60 mL/min Normal EST GFR - AA 117 Result Comment: GFR Calc LAB L501.1300 10-20 RATIO Normal BUN/CRE 13.1 LAB L501.2200 8.5-10.1 mg/dL CA Normal 8.7 LAB L501.5300 136-145 mmol/L NA Normal 138 LAB L501.5600 3.5-5.1 mmol/L K Normal 4.2 LAB L501.5900 98-107 mmol/L CL Normal 105 LAB L501.6100 21.0-32.0 mmol/L Normal CO2 27.0 LAB L501.6200 5-15 Normal GAP 6 Performed By: #### L500.2500, L501.5200, L506.0250 #### [facility] [address] [place], [address] MAGNESIUM Collected: 11/29/2017 Status: F Source: [place] 8:08 AM [facility] [place] [facility] Order Comment: Comments: HERPES 6 VIRAL LOAD #[id number] EDTA PLASMA FR Is Patient Taking Vitamins or Folic Acid Supplements? N TYPE CODE TESTS RESULT OUT OF RANGE REFERENCE UNITS LAB L501.5200 1.6-2.6 mg/dL Normal MG 2.0 Performed By: #### L500.2500, L501.5200, L506.0250 #### [facility] [address] [place], [address] FOLATES, (FOLIC ACID) Collected: 11/29/2017 Status: F Source: [place] 8:08 AM [facility] [place] [facility] Order Comment: Comments: HERPES 6 VIRAL LOAD #[id number] EDTA PLASMA FR Is Patient Taking Vitamins or Folic Acid Supplements? N TYPE CODE TESTS RESULT OUT OF RANGE REFERENCE UNITS LAB L506.0250 3.1-55.4 ng/mL Normal FOLATES 46.10 Performed By: #### L500.2500, L501.5200, L506.0250 #### [facility] [address] [place], [address] MISCELLANEOUS LAB Collected: 11/29/2017 Status: F Source: [place] PROCEDURE 3 8:08 AM [facility] [place] [facility] Order Comment: Comments: HERPES 6 VIRAL LOAD #[id number] EDTA PLASMA FR List Test(s) Ordered by Physician: HHV-6 IFA #[id number] TIGER REF TYPE CODE TESTS RESULT OUT OF RANGE REFERENCE UNITS LAB L801.1545 Normal [facility] LAB TEST 3 Result Comment: TEST RESULT LIMITS Human Herpes Virus Type 6 IgM Human Herpes Virus Type 6 IgM <1:10 Neg:<1:10 Disclaimer: This test was developed and its performance characteristics determined by [facility]. It has not been cleared or approved by the Food and Drug Administration. TESTING PERFORMED AT [facility]. ORIGINAL REPORT ON FILE IN LAB CONTAINS ADDITIONAL TEST SITE INFORMATION. Performed By: #### L801.1545 #### [facility] [address] [place], [place], [address] MISCELLANEOUS LAB Collected: 11/29/2017 Status: F Source: [place] PROCEDURE 2 8:08 AM [facility] [place] [facility] Order Comment: Comments: HERPES 6 VIRAL LOAD #[id number] EDTA PLASMA FR List Test(s) Ordered by Physician: ZINC PROTOPORHYRIN #[id number] ROYAL BLUE WB RT TYPE CODE TESTS RESULT OUT OF RANGE REFERENCE UNITS LAB L801.1543 Normal [facility] LAB TEST 2 Result Comment: TEST RESULT LIMITS Protoporphyrin, FEP/ZPP Protoporphyrin (FEP) 25 ug/dL 0 - 34 Zinc Protoporphyrin 28 ug/dL 0 - 38 ETIENNE: 100 TESTING PERFORMED AT [facility]. ORIGINAL REPORT ON FILE IN LAB CONTAINS ADDITIONAL TEST SITE INFORMATION. Performed By: #### L801.1543 #### [facility] [address] [place], [place], [address] ANTI-MITOCHONDRIAL AB Collected: Status: F Source: [place] 11/29/2017 8:08 AM [facility] [place] [facility] TYPE CODE TESTS RESULT OUT OF RANGE REFERENCE UNITS LAB L800.1280 0.0-20.0 Units Normal MITOCHN AB <20.0 Result Comment: Negative 0.0 - 20.0 Equivocal 20.1 - 24.9 Positive >24.9 Mitochondrial (M2) Antibodies are found in 90-96% of patients with primary biliary cirrhosis. Performed By: #### L800.1280, L3100.5475, L3300.0960 #### [facility] (refer to report for specific site) refer to report for address and phone number ANTINUCLEAR ANTIBODIES Collected: 11/29/2017 Status: F Source: [place] DIRECT 8:08 AM [facility] [place] [facility] TYPE CODE TESTS RESULT OUT OF RANGE REFERENCE UNITS LAB L3100.5475 Negative Normal Negative JOHN-DIRECT Result Comment: Performed at: - [facility] [id number] Hadoop Java Developer: Carlos Akers PhD, Phone: [phone] Performed at: [facility] [id number] Hadoop Java Developer: Juan Haro MD, Phone: [phone] Performed By: #### L800.1280, L3100.5475, L3300.0960 #### [facility] (refer to report for specific site) refer to report for address and phone number VITAMIN D 1,25-DIHYDROXY Collected: 11/29/2017 Status: F Source: [place] 8:08 AM [facility] [place] [facility] TYPE CODE TESTS RESULT OUT OF RANGE REFERENCE UNITS LAB L3300.0960 19.9-79.3 pg/mL Normal VITD 1,25 33.7 72761 Performed By: #### L800.1280, L3100.5475, L3300.0960 #### [facility] (refer to report for specific site) refer to report for address and phone number MISCELLANEOUS LAB Collected: 11/29/2017 Status: F Source: [place] PROCEDURE 8:08 AM [facility] [place] [facility] Order Comment: Comments: HERPES 6 VIRAL LOAD #[id number] EDTA PLASMA FR Test(s) Ordered: HERPES 6 VIRAL LOAD #[id number] EDTA PLASMA FR TYPE CODE TESTS RESULT OUT OF RANGE REFERENCE UNITS LAB L801.1541 Normal [facility] LAB TEST Result Comment: TEST RESULT LIMITS HHV-6 Quant DNA PCR HHV-6 Quant DNA PCR Negative copies/mL Negative No Human Herpes Virus Type 6 DNA detected. The quantitative range of this assay is 100 to 1 million copies/mL. This test was developed and its performance characteristics determined by [facility]. It has not been cleared or approved by the Food and Drug Administration. The FDA has determined that such clearance or approval is not necessary. log10 HHV-6 Qn PCR Unable to calculate result since non-numeric result obtained for component test. TESTING PERFORMED AT [facility]. ORIGINAL REPORT ON FILE IN LAB CONTAINS ADDITIONAL TEST SITE INFORMATION. Performed By: #### L801.1541 #### [facility] [address] [place], [address] MISCELLANEOUS LAB Collected: 11/29/2017 Status: F Source: [place] PROCEDURE 4 8:08 AM [facility] [place] Order Comment: Comments: HERPES 6 VIRAL LOAD #699979 EDTA PLASMA FR List Test(s) Ordered by Physician: ASCORBIC ACID VIT C #1479 SERUM FROZEN TYPE CODE TESTS RESULT OUT OF RANGE REFERENCE UNITS LAB L801.1547 Normal [facility] LAB TEST 4 Result Comment: TEST RESULT LIMITS Vitamin C 1.0 mg/dL 0.2 - 2.0 TESTING PERFORMED AT [facility]. ORIGINAL REPORT ON FILE IN LAB CONTAINS ADDITIONAL TEST SITE INFORMATION. Performed By: #### L801.1547 #### [facility] [address] [place], [address] FOLATES, RBC Collected: 11/29/2017 Status: F Source: [place] 8:08 AM [facility] [place] [facility] Order Comment: Has Patient had X-rays with Contrast this admission? N Comments: HERPES 6 VIRAL LOAD #726937 EDTA PLASMA FR TYPE CODE TESTS RESULT OUT OF RANGE REFERENCE UNITS LAB L3100.1735 Not Estab. ng/mL Normal 478.8 FOL,HEMOLYSA TE LAB L3100.1740 37.5-51.0 % Normal 41.4 FOLR,HEMATOC RIT LAB L3100.1745 >498 ng/mL Normal FOLATE, 1157 RBC Performed By: #### L3100.1725, L3100.5310, L3100.5850, L3300.8000 #### [facility] (refer to report for specific site) refer to report for address and phone number TESTOSTERONE, TOTAL / Collected: 11/29/2017 Status: F Source: [place]I FREE 8:08 AM [facility] [place] [facility] Order Comment: Has Patient had X-rays with Contrast this admission? N Comments: HERPES 6 VIRAL LOAD #418480 EDTA PLASMA FR TYPE CODE TESTS RESULT OUT OF RANGE REFERENCE UNITS LAB L3100.5320 264-916 ng/dL Normal 418 TESTOSTER,TO TWIN Result Comment: Adult male reference interval is based on a population of healthy nonobese males (BMI <30) between 19 and 39 years old. Sherry, et.al. JCEM 2017,102;4505-0258. PMID: [id number]. LAB L3100.5340 5.00-21.00 ng/dL TESTOSTER,FREE Normal 16.64 LAB L3100.5360 1.50-4.20 % TESTOSTER %FREE Normal 3.98 Performed By: #### L3100.1725, L3100.5310, L3100.5850, L3300.8000 #### [facility] (refer to report for specific site) refer to report for address and phone number EBV ACUTE PROF IGG Collected: 11/29/2017 Status: F Source: ELI / IGM 8:08 AM [facility] [place] [facility] Order Comment: Has Patient had X-rays with Contrast this admission? N Comments: HERPES 6 VIRAL LOAD #504874 EDTA PLASMA FR TYPE CODE TESTS RESULT OUT OF RANGE REFERENCE UNITS LAB L3100.5900 0.0-35.9 U/mL Normal EB-VCA < 36.0 [id number] Result Comment: Negative <36.0 Equivocal 36.0 - 43.9 Positive >43.9 LAB L3100.6000 0.0-8.9 U/mL Normal EB-EA IgG <9.0 75248 Result Comment: Negative < 9.0 Equivocal 9.0 - 10.9 Positive >10.9 LAB L3100.6100 0.0-17.9 U/mL High EB-VCA [id number] 49.8 Result Comment: Negative <18.0 Equivocal 18.0 - 21.9 Positive >21.9 LAB L3100.6200 0.0-17.9 U/mL High EB-NAg 162.0 [id number] Result Comment: Negative <18.0 Equivocal 18.0 - 21.9 Positive >21.9 LAB L3100.6300 . INTERPRETATION Normal Comment Result Comment: EBV Interpretation Chart Interpretation EBV-IgM EA(D)-IgG VCA-IgG EBNA-IgG EBV Seronegative - - - - Early Phase + - - - Acute Primary + +or- + - Infection Convalescence/Past - +or- + + Infection Reactivated +or- + + + Infection + Antibody Present - Antibody Absent Performed By: #### L3100.1725, L3100.5310, L3100.5850, L3300.8000 #### [facility] (refer to report for specific site) refer to report for address and phone number VITAMIN B1, THIAMINE Collected: 11/29/2017 Status: F Source: ELI 8:08 [facility] REPOSITORY Order Comment: Has Patient had X-rays with Contrast this admission? N Comments: HERPES 6 VIRAL LOAD #005773 EDTA PLASMA FR TYPE CODE TESTS RESULT OUT OF RANGE REFERENCE UNITS LAB L3300.8000 66.5-200.0 nmol/L Normal VIT B1 139.6 Result Comment: This test was developed and its performance characteristics determined by [facility]. It has not been cleared or approved by the Food and Drug Administration. Performed at: [address] [id number] Hadoop Java Developer: Carlos Akers PhD, Phone: [phone] Performed at: - [facility] [address] [id number] Hadoop Java Developer: Juan Haro MD, Phone: [phone] Performed By: #### L3100.1725, L3100.7978, L3100.7039, L3300.8000 #### [facility] (refer to report for specific site) refer to report for address and phone number PROGRESS Observed: 11/20/2017 Status: COMPLETED Source: [place] 11:46 AM [facility] [place] REPOSITORY HNO ID: [id number] Author: Bisi Rossi Service: (none) Author Type: Diplomat of Acupuncture Type: Progress Notes Filed: 11/22/2017 10:16 AM Note Text: Isacc Mata is a 42 year old male This is patient's Initial acupuncture visit Allergies reviewed: yes, no change Medication reviewed: yes, no change. 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 Severity: 5/10 (on the scale 1 to 10, 0 = no pain, 10 = unbearable pain) Duration: 14 months Onset: abrupt Aggravated: talking, posture No other complaints. 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 TDP lamp applied to none. Patient tolerated the procedure well. Patient is a suitable candidate for LINDSAY: NO I explained group session expectations and differences from private room visits. Recommended Follow-up: 1-2 times a week 30 minute face to face time spent with patient Bisi Rossi LAc [facility] discussed with patient. All questions answered and Informed Consent was gathered. This is the patient's initial visit. Intake form located in patient file. Acupuncture and danish herbal therapy is not a substitute for conventional medical diagnosis and treatment. Patient agrees that either: 1. A diagnostic exam has been performed by a physician or chiropractor within the last six months regarding the condition for which they are seeking acupuncture treatment. or 2. If no diagnostic exam by a physician or chiropractor has been done within the last six months regarding the condition for which patient is seeking treatment, the Scaler, per [place] Law, recommends that this diagnostic exam be performed. BRENDA Observed: 11/20/2017 Status: COMPLETED Source: [place] 11:[address] [facility] REPOSITORY Office Visit (WEBRIN) ISACC MATA ([id number]) 1975 M Date Time Provider Department 11/20/17 11:00 AM BISI ROSSI During your visit today, we recorded the following information about you: LUIS Hicks 11/22/2017 10:16 AM Addendum Isacc Mata is a 42 year old male This is patient's Initial acupuncture visit Allergies reviewed: yes, no change Medication reviewed: yes, no change. 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 Severity: 5/10 (on the scale 1 to 10, 0 = no pain, 10 = unbearable pain) Duration: 14 months Onset: abrupt Aggravated: talking, posture No other complaints. 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 TDP lamp applied to none. Patient tolerated the procedure well. Patient is a suitable candidate for LINDSAY: NO I explained group session expectations and differences from private room visits. Recommended Follow-up: 1-2 times a week 30 minute face to face time spent with patient Bisi LAURENT discussed with patient. All questions answered and Informed Consent was gathered. This is the patient's initial visit. Intake form located in patient file. Acupuncture and danish herbal therapy is not a substitute for conventional medical diagnosis and treatment. Patient agrees that either: 1. A diagnostic exam has been performed by a physician or chiropractor within the last six months regarding the condition for which they are seeking acupuncture treatment. or 2. If no diagnostic exam by a physician or chiropractor has been done within the last six months regarding the condition for which patient is seeking treatment, the Scaler, per [place] Law, recommends that this diagnostic exam be performed. Referring Provider: SELF [[id number]] Allergies As of Date: 11/20/2017 Noted Allergy Reaction SULFA (SULFONAMIDE ANTIBIOTICS) 12/23/2015 10 - Anaphylaxis Date Reviewed: 11/20/2017 Reviewed by: Bisi Rossi - Fully Assessed Primary Visit Diagnosis:Migraine without aura, intractable, without status migrainosus [G43.019] Other Visit Diagnosis:Tongue pain [K14.6] Prescriptions as of 11/20/2017 Sig: MULTI VITAMIN ORAL Take by mouth. Problem List As Of Date: 11/20/2017 (None) Encounter Status:Closed by BISI ROSSI V on 11/20/17 ESOPHAGUS ONLY Observed: 10/18/2017 Status: F Source: [place] 8:27 AM [facility] [place] [facility] Imaging Services [address] [place] [address] Esophagus Only MR#: [id number] Acct: [id number] Name: ISACC MATA Rep #: [id number] : 1975 M 42 From: Beau Franco MD PCP: Ashly Milligan MD Status: REG CLI Study: Esophagus Only Date of Exam: 10/18/17 Exam# [id number] Ordering Dr: Ashly Milligan MD STUDY: X-RAY - ESOPHAGUS (BARIUM SWALLOW) WITH FLUOROSCOPY REASON FOR EXAM: Male, 42 years old. One year history of dysphagia. TECHNIQUE: 17 view(s) of the esophagus were obtained following swallowing of barium. FLUOROSCOPY TIME (if supplied): (0:29) minutes/seconds COMPARISON: None. FINDINGS: There is no demonstrated esophageal foreign body. There is no demonstrated stricture or mucosal abnormality. Normal gastroesophageal junction, without a demonstrated hiatal hernia. The patient ingest a 12 mm tablet of barium without any difficulty. Normal visualized aortic arch and descending thoracic aorta. Normal visualized pulmonary parenchyma. Normal visualized osseous structures of the thorax. RAD/Esophagus Only IMPRESSION: Normal plain film x-ray examination (barium swallow) of the esophagus. Electronically Signed: Beau Franco MD at 9:52 EDT Tel [phone], Service support , CC: Ashly Milligan MD Operations General Agent: Signed 12 LEAD ELECTROCARDIOGRAM Observed: 10/09/2017 Status: F Source: [place] 3:44 PM [facility] [place] [facility] Cardiovascular Services [address] [place] [address] 12 Lead EKG 10/03/17 1735 MR#: [id number] Acct: [id number] Name: ISACC MATA Rep #: [id number] : 1975 42 From: Albert Clements MD Attending Dr: Aaron Henry Status: DIS ASHLEY Ordering Dr: Bela, Ed P. Date: 10/03/17 Location: [facility] Sex: M C Admitted: 10/03/17 Test Reason : CP Blood Pressure : / mmHG Vent. Rate : 066 BPM Atrial Rate : 066 BPM P-R Int : 158 ms QRS Dur : 096 ms QT Int : 392 ms P-R-T Axes : 054 029 007 degrees QTc Int : 410 ms Normal sinus rhythm Normal ECG Confirmed by ALBERT CLEMENTS MD ([id number]), order editor LEE ANN BAY ([id number]) on 10/09/2017 3:43:40 PM Referred By: NIESHA Confirmed By:ALBERT CLEMENTS MD 10/09/17 1543 Date Albert Clements MD CC: ED PHYSICIAN PROVIDER; Ashly Milligan MD; Aaron Henry; Nathan Yung MD Signed 12 LEAD ELECTROCARDIOGRAM Observed: 10/06/2017 Status: F Source: [place] 2:08 PM [facility] [place] [facility] Cardiovascular Services [address] [place] [address] 12 Lead EKG 10/03/172135 MR#: [id number] Acct: [id number] Name: ISACC MATA Rep #: [id number] : 1975 42 From: Mudno Magaña MD Attending Dr: Aaron Henry Status: DIS ASHLEY Ordering Dr: Ashly Paez DO Date: 10/03/17 Location: [facility] Sex: M C Admitted: 10/03/17 Test Reason : ADM EKG Blood Pressure : / mmHG Vent. Rate : 065 BPM Atrial Rate : 065 BPM P-R Int : 170 ms QRS Dur : 104 ms QT Int : 414 ms P-R-T Axes : 046 025 -01 degrees QTc Int : 430 ms Normal sinus rhythm Poor R wave progression Nonspecific T wave abnormality Confirmed by ARCHANA BECKMAN, MUNDO ([id number]), order editor LEE ANN BAY (56) on 10/06/2017 2:07:55 PM Referred By: CARLOS ALBERTO Confirmed By:MUNDO MAGAÑA MD 10/06/17 1408 Date Mundo Magaña MD CC: Ashly Paez DO; Ashly Milligan MD; Aaron Henry; Nathan Yung MD Signed 12 LEAD ELECTROCARDIOGRAM Observed: 10/06/2017 Status: F Source: [place] 2:06 PM [facility] [place] [facility] Cardiovascular Services [address] [place] [address] 12 Lead EKG 10/04/17 0508 MR#: [id number] Acct: [id number] Name: ISACC MATA Rep #: [id number] : 1975 42 From: Mundo Magaña MD Attending Dr: Aaron Henry Status: DIS ASHLEY Ordering Dr: Ashly Paez DO Date: 10/04/17 Location: [facility] Sex: M C Admitted: 10/03/17 Test Reason : AM EKG Blood Pressure : / mmHG Vent. Rate : 066 BPM Atrial Rate : 066 BPM P-R Int : 170 ms QRS Dur : 108 ms QT Int : 432 ms P-R-T Axes : 054 031 008 degrees QTc Int : 452 ms Normal sinus rhythm Poor R wave progression Nonspecific T wave abnormality Confirmed by ARCHANA BECKMAN, MUNDO ([id number]), order editor LEE ANN BAY (56) on 10/06/2017 2:05:51 PM Referred By: CARLOS ALBERTO Confirmed By:MUNDO MAGAÑA MD 10/06/17 1400 Date Mundo Magaña MD CC: Ashly Paez DO; Ashly Milligan MD; Aaron Henry; Nathan Yung MD Signed DISCHARGE SUMMARY Observed: 10/05/2017 Status: F Source: [place] 12:11 PM [facility] [place] [facility] Medical Records Department [address] [place] [address] Discharge Summary 10/04/17 1458 MR#: [id number] Acct: [id number] Name: ISACC MATA Rep #: [id number] : 1975 42 From: Aaron Henry MD PCP: Srini BECKMAN,Ashly Status: DIS ASHLEY Y Location: [place] [address] Discharge Date and Diagnosis Date of Admission: 10/03/17 Date of Discharge: 10/04/17 - Primary Discharge Diagnosis Active and Suspected Problems (Last Reviewed 04/20/17 @ 11:22 by Emil Painter) Chest pain, negative cardiac workup including stress echocardiogram, attributed to probable GERD versus esophageal spasm (Acute) - Secondary Discharge Diagnosis Chronic Problems (Last Reviewed 04/20/17 @ 11:22 by Emil Painter) 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 Electronically Signed: Herb Neely, at 18:20 EDT Tel , Service support , Procedures: EKG, - - Stress echocardiogram. Summary of Care Provided: Patient seen and examined on the day of discharge and appeared to be stable to be discharged home. His chest pain improved but still having mild chest discomfort described as something stuck in the middle of his chest. Denied shortness of breath, palpitation, dizziness, lightheadedness, syncope or presyncope his vital signs are stable. - Physical Exam General: Alert, Oriented x3, Cooperative, No apparent distress. HEENT: Atraumatic, PERRLA, EOMI. Neck: Supple, No JVD, Negative Carotid Bruits, Trachea Midline, Thyroid Normal. Lungs: Clear to auscultation, Normal air movement, No rhonchi, No wheeze, No rales. Cardiovascular: Regular rate, Regular Rhythm, Normal S1, Normal S2, PMI Normal. Abdomen: Bowel Sounds Present, Soft, Non Tender, Non-Distended, No Hepato-splenomegaly. Extremities: No clubbing, No cyanosis, No edema Skin: No rashes, No breakdown Neurological: Neuro grossly intact Vital Signs are stable. Hospital course: The patient is a 42 year old M admitted for chest pain for evaluation. He has no risk factors for CAD and no family history of premature CAD. His EKG revealed normal sinus rhythm without evidence of acute ischemic changes. His troponin was negative 3. Routine blood work was unremarkable. Chest x-ray showed no acute findings. Patient underwent stress echocardiogram that reported as negative without evidence of stress-induced myocardial ischemia based on EKG and echocardiographic criteria, official report is pending at the time of discharge. ACS ruled out. Patient symptoms attributed to probable GERD versus esophageal spasm. Patient discharged home in a stable medical condition, discharged on Protonix 40 mg p.o. daily, recommended PCP in 2-4 weeks and if his symptoms persist, he may need GI referral as outpatient. Discharge Activity: Return to Normal Activity Weight Bearing Status: Full weight bearing Call your doctor if you observe: Fever of 101 or Higher, Shortness of breath, Dizziness, Fainting spells, Chest pain, Increased palpitations (irregular heartbeat), Uncontrolled pain Home Medications: Medications to take at Discharge multivitamin capsule 1 cap PO DAILY 04/05/17 Citalopram [Celexa] 10 mg PO DAILY 07/14/17 Pantoprazole Sodium [Protonix] 40 mg PO DAILY #30 tab 10/04/17 Following Prescrptions Were Given to Patient: Pantoprazole Sodium [Protonix] 40 mg PO DAILY #30 tab Primary Care Physician: Ashly Milligan MD [Primary Care Provider] - Please follow up with your Primary Care Physician in: 2-4 weeks. Disposition: Home Minutes spent on discharge:: 25 Patient Condition:: Stable Medical Necessity - Tobacco Use Smoking Status: Never smoker Tobacco Use: Non-smoker Meaningful Use Info Meaningful Use Diagnoses (Choose all that apply): None applicable Code Visit OBSV E AND M: 92355 Observation care discharge 10/05/17 1211 <Electronically signed by Aaron Henry MD> Date Aaron Henry MD Cosigner Signature (if applicable): Date CC: Ashly Milligan MD; Aaron Henry; Nathan Yung MD Signed DISCHARGE INSTRUCTION Observed: 10/04/2017 Status: F Source: [place] 11:13 AM [facility] [place] [facility] Medical Records Department [address] [place] [address] Instructions for Home/Discharge Instructions 10/04/17 1112 MR#: [id number] Acct: [id number] Name: ISACC MATA Rep #: [id number] : 1975 42 From: Aaron Henry MD PCP: Ashly Milligan MD Status: ADM ASHLEY - Discharge Diagnoses Current Active Problems: Current Active and Chronic Problems (Last Reviewed 04/20/17 @ 11:22 by Emil Painter) Chest pain (Acute) You will use the following diet at home:: Regular Your food should be the consistency of: Regular Discharge Activity: Return to Normal Activity Weight Bearing Status: Full weight bearing Call your doctor if you observe: Fever of 101 or Higher, Shortness of breath, Dizziness, Fainting spells, Chest pain, Increased palpitations (irregular heartbeat), Uncontrolled pain Allergies/Adverse Reactions: Allergies Sulfa (Sulfonamide Antibiotics) Allergy (Verified 10/03/17 17:33) Anaphylaxis Medications to take at Discharge multivitamin capsule 1 cap PO DAILY 04/05/17 Citalopram [Celexa] 10 mg PO DAILY 07/14/17 Pantoprazole Sodium [Protonix] 40 mg PO DAILY #30 tab 10/04/17 The following prescriptions were given: Pantoprazole Sodium [Protonix] 40 mg PO DAILY #30 tab Primary Care Physician: Ashly Milligan MD [Primary Care Provider] - Please follow up with your Primary Care Physician in: 2-4 weeks. Test Results: Test results from this visit will be discussed in further detail at your follow-up appointment, if applicable. 10/04/17 1113 <Electronically signed by Aaron Henry MD> Date Aaron Henry MD CC: Ashly Milligan MD; Nathan Yung MD BASIC METABOLIC Collected: 10/04/2017 Status: F Source: [place] PROFILE (BMP) 5:00 AM [facility] [place] TYPE CODE TESTS RESULT OUT OF RANGE REFERENCE UNITS LAB L501.0100 74-106 mg/dL Normal GLU 96 Result Comment: Please note revised GLUCOSE reference range effective 2017. LAB L501.1000 7-18 mg/dL High BUN 19 LAB L501.1100 0.70-1.30 mg/dL Normal CREAT,SERUM 0.84 Result Comment: The validity of the calculated GFR AND GFRAA in patients over 70 years has not been determined. Clinical correlation is essential. LAB L501.1110 >60 mL/min Normal EST GFR 107 Result Comment: Non- GFR Calc LAB L501.1115 >60 mL/min Normal EST GFR - AA 130 Result Comment: GFR Calc LAB L501.1255 ml/min Normal Estimated CRCL 123.26 LAB L501.1300 10-20 RATIO High BUN/CRE 22.7 LAB L501.2200 8.5-10 mg/dL .1 CA Normal 8.6 LAB L501.5300 136-14 mmol/L 5 NA Normal 143 LAB L501.5600 3.5-5. mmol/L 1 K Normal 4.3 LAB L501.5900 98-107 mmol/L CL Normal 107 LAB L501.6100 21.0-3 mmol/L 2.0 CO2 Normal 30.0 LAB L501.6200 5-15 GAP Normal 6 Performed By: #### L500.2500, L500.4100 #### [facility] [address] [place], [address] LIPID PROFILE Collected: 10/04/2017 Status: F Source: [place] 5:00 AM [facility] [place] TYPE CODE TESTS RESULT OUT OF RANGE REFERENCE UNITS LAB L501.4900 200 mg/dL High CHOL 233 Result Comment: <200 mg/dL Desirable 200-240 mg/dL Borderline >240 mg/dL High Risk LAB L501.5000 mg/dL Normal TRIG 162 Result Comment: The drugs N-Acetylcysteine and Metamizole may falsely depress this assay. Serum Triglycerides Reference Interval Normal <150 mg/dL Borderline high 150 - 199 mg/dL High 200 - 499 mg/dL Very High > or = 500 mg/dL LAB L501.6400 mg/dL Normal HDL 59 Result Comment: The drugs N-Acetylcysteine and Metamizole may falsely depress this assay. Reference Range HDL <40 mg/dL Low HDL Cholesterol HDL >or= 60 mg/dL High HDL Cholesterol LAB L501.6500 0-130 mg/dL High LDL 142 LAB L501.6600 5-40 mg/dL Normal VLDL 32 Performed By: #### L500.2500, L500.4100 #### [facility] [address] [place], [place], [address] CBC W/DIFF, AUTOMATED Collected: 10/04/2017 Status: F Source: [place] 5:00 AM [facility] [place] TYPE CODE TESTS RESULT OUT OF RANGE REFERENCE UNITS LAB L100.1000 4.4-11.0 K/mm3 Normal WBC 5.0 LAB L100.1200 4.6-6.2 M/mm3 Low RBC 4.49 LAB L100.1300 13.0-16.5 g/dl Normal HGB 13.5 LAB L100.1400 40-54 % Normal HCT 41.1 LAB L100.1500 80-94 fL Normal MCV 91.5 LAB L100.1600 27.0-32.0 pg Normal MCH 30.1 LAB L100.1700 32-36 g/gl Normal MCHC 32.8 LAB L100.1810 11.6-14.6 % Normal RDW CV 12.9 LAB L100.1820 35.1-43.9 fl Normal RDW SD 42.7 LAB L100.1900 150-450 K/mm3 Normal PLT 249 LAB L100.2000 6.2-12.0 fl Normal MPV 9.9 LAB L100.2100 47-70 % Normal NEUT% 47.9 LAB L100.2200 19-41 % Normal LY% 31.7 LAB L100.2300 0-10 % High MONO% 12.0 LAB L100.2400 0-5 % High EO% 7.6 LAB L100.2500 0-1 % Normal BASO% 0.6 LAB L100.2550 0.0-0.9 % Normal IM GRAN % 0.200 Result Comment: IG% - Immature Granulocytes (promyelocytes, myelocytes and metamyelocytes) > 1% indicates that a LEFT SHIFT is Present. LAB L100.2620 2.0-7.7 X10 3/uL Normal Absolute Neut 2.4 LAB L100.2720 0.83-4.51 X10 3/ul Normal Absolute Lymph 1.59 Performed By: #### L100.0100 #### [facility] [address] [place], [address] PROTHROMBIN TIME W/INR Collected: 10/04/2017 Status: F Source: [place] 5:00 AM [facility] [place] TYPE CODE TESTS RESULT OUT OF RANGE REFERENCE UNITS LAB L300.4150 11.7-14.9 SECONDS Normal PROTIME 13.3 LAB L300.4200 Normal INR 1.0 Performed By: #### L300.3900, L300.4310 #### [facility] [address] [facility] [address] PARTIAL THROMBOPLAST Collected: 10/04/2017 Status: F Source: [place] TIME 5:00 AM [facility] [place] TYPE CODE TESTS RESULT OUT OF RANGE REFERENCE UNITS LAB L300.4310 24.1-36.2 Seconds Normal PTT 29.2 Performed By: #### L300.3900, L300.4310 #### [facility] [address] [place], [address] TROPONIN-I Collected: 10/04/2017 Status: F Source: [place] 12:35 AM [facility] [place] Order Comment: 'TROP' Serial specimen #1, #2 or #3: 3 TYPE CODE TESTS RESULT OUT OF RANGE REFERENCE UNITS LAB L501.4010 <0.045 ng/mL Normal < 0.015 TROPONIN-I Result Comment: TROPONIN-I EXPECTED VALUES <0.045 Negative 0.045 - 0.590 Consistent with Cardiac Damage > OR = 0.600 Critical Value Not every elevated troponin is indicative of ID. These values should be used with clinical judgement in examining the patient's clinical picture for diagnosis. To establish a diagnosis of ID versus myocardial injury, there must be a demonstrated rise and/or fall in the troponin values, in addition to ischemic symptoms, EKG changes, new regional wall motion abnormality, and/or angiographical evidence. PLEASE NOTE: REFERENCE RANGES EDITED 17 Performed By: #### L501.4010 #### [facility] [address] [place], [address] EMERGENCY DEPARTMENT Observed: 10/03/2017 Status: F Source: [place] SUMMARY 11:27 PM [facility] [place] [facility] Medical Records Department [address] [place] [address] Emergency Department Summary 10/03/17 1930 MR#: [id number] Acct: [id number] Name: ISACC MATA Rep #: [id number] : 1975 42 From: Mouna Berman MD PCP: Ashly Milligan MD Status: ADM [place] - ER Visit Summary Date of Service: 10/03/17 Chief Complaint: Chest pain History of Present Illness: The patient is a 42 M with chest pain for the past 4 days. It has been waxing and waning. He describes it as a heavy and squeezing sensation. He does get occasional shortness of breath and breaks out in a sweat for no reason, but on questioning does state the pain seems to be worse during these episodes. He has been more winded with exertion recently. He denies reflux symptoms. He did have recent travel. He has no cardiac risk factors are significant family history. Physical Examination: Vital signs unremarkable. Patient sitting upright in bed. Head neck examination unremarkable. Heart is regular rate and rhythm. Lung sounds are clear. He has very minimal chest wall tenderness that he states is not similar to the chest pain he feels. Abdomen is soft nontender. Lower extremity examination reveals no tenderness or edema. Strong distal pulses are noted throughout. Test Results: Portable chest x-ray shows no acute pathology. EKG is sinus at 66 with no sign of ischemia. CBC and chemistry studies normal. Troponin negative. D-dimer negative. Emergency Department Course and Treatment: Patient received aspirin. On repeat evaluation is resting comfortably. Although the patient does not have significant risk factors, his story is concerning. It does not appear that he gets diaphoretic with these episodes. I recommended observation overnight for cycling of enzymes and stress test. Treatment Plan: [] Disposition: Admit Impression: Chest pain This note was generated with [employer] dictation software. It may contain incorrect words, spelling, and punctuation that were not noted in review of the chart prior to signing ED Disposition - Plan for ED Patient: Chief Complaint: Chest Pain Referrals: Ashly Milligan MD [Primary Care Provider] - What to do if you have Problems For any increased pain, shortness of breath, bleeding, nausea or vomiting, chest pain, or any unexpected problems, contact your Primary Care Provider. Call [facility] ([phone]) or report to the closest Emergency Room. Call 911 if necessary. 10/03/172326 <Electronically signed by Mouna Berman MD> Date Mouna Berman MD Cosigner Signature (If Indicated): Date CC: Ashly Milligan MD; Nathan Yung MD HISTORY AND PHYSICAL Observed: 10/03/2017 Status: F Source: [place] EXAM 8:03 PM [facility] [place] [facility] Medical Records Department [address] [place] [address] History and Physical 10/03/171955 MR#: [id number] Acct: [id number] Name: ISACC MATA Rep #: [id number] : 1975 42 From: Ashly Paez DO PCP: Ashly Milligan MD Status: REG ER Y Location: ED Problem List (1) Chest pain Status: Acute Qualifiers: Chest pain type: unspecified Qualified Code(s): R07.9 - Chest pain, unspecified History of Present Illness Date of Admission: 10/03/17 Chief Complaint: chest pain. The patient is a 42 year old M presents with a 2 day history of chest pain. It began with feeling he swallowed a pill again his upper chest and then went down to his lower chest and just persisted. It would get worse when he would exert himself but would never completely go away. Associated with some diaphoresis and shortness of breath. Patient presented to the emergency room his chest pain was not resolving. He denies ever having had chest pain like this before. Patient states that 3 days prior he did a workout class and burnt 700 manny and had no chest pain at that time. Patient is normally very active and works out, does yoga. 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) Allergies Sulfa (Sulfonamide Antibiotics) Allergy (Verified 10/03/17 17:33) Anaphylaxis Home Medications: Ambulatory Orders Medication Instructions Recorded multivitamin capsule 1 cap PO DAILY 04/05/17 Citalopram [Celexa] 10 mg PO DAILY 07/14/17 Surgical History: - - Excision of mass on the anterior two thirds of Psychiatric History: No pertinent psych hx Lives: Spouse/ Significant Other Smoking Status: Never smoker Tobacco Use: Non-smoker Alcohol: Occasional Drugs: None - *Family History Maternal Family History: Family History (Last Reviewed 10/03/17 @ 19:58 by Ashly Paez DO) Other Hypertension History Items: - Review of Systems Constitutional: Denies: Chills, Fever, Weight Change Eyes: Denies: Blurred vision, Double vision HEENT: Denies: Head Aches, Sinus Congestion, Sinus Drainage Cardiovascular: Reports: Chest Pain, Chest Tightness. Denies: Edema Respiratory: Reports: Shortness of Breath. Denies: Cough Gastrointestinal: Denies: Abdominal Pain, Nausea, Vomiting Genitourinary: Denies: Dysuria Musculoskeletal: Denies: Joint Pain, Joint Tenderness Skin: Denies: Rash, Wounds Neurological: Denies: Numbness, Tingling, Focal weakness Psychiatric: Denies: Anxiety, Depression Hematologic/ Lymphatic: Denies: Easy Bruising, Easy Bleeding, Hx of blood clot Comment: All review of systems are negative except as mentioned in the history of present illness and the other review of systems. VTE Information - Inpt Only VTE Present on Admission: No VTE Mechan Device Prophylaxis: None VTE Pharm Prophylaxis ordered?: No Reason prophylaxis not ordered:: Procedure Not Indicated Patient Problems: Active and Suspected Problems (Last Reviewed 04/20/17 @ 11:22 by Emil Painter) Chest pain (Acute) - Physical Exam General: Alert, Cooperative, No apparent distress, Well developed, Well nourished HEENT: Atraumatic, Normocephalic Oral: Moist Mucosa, No Gingival or Mucosal Lesions/ Ulcerations Neck: No Nodes, Thyroid Normal Size and Texture Lungs: Clear to auscultation, Normal air movement, No rhonchi, No wheeze Cardiovascular: Regular rate, Regular Rhythm, Normal S1, Normal S2, No murmurs Abdomen: Bowel Sounds Present, Soft, Non Tender, Non-Distended, No Hepato-splenomegaly Extremities: No clubbing, No edema Skin: No rashes, No breakdown Musculoskeletal: - - Reproducible anterior chest wall tenderness Psych/Mental Status: Normal Affect, Appropriate Vital Signs Temp Pulse Resp BP Pulse Ox 36.8 C 72 18 128/86 H 99 10/03/17 17:31 10/03/17 19:21 10/03/17 19:21 10/03/17 19:21 10/03/17 19:21 Oxygen Delivery Method Room Air Weight: 92.2 kg Body Mass Index (BMI) 28.3 Laboratory Tests Past 24 Hrs Clinical Impression(s) from Imaging Studies Chest X-Ray 10/03/17 17:45 IMPRESSION: No acute thoracic pathology. Electronically Signed: Herb Neely, at 18:20 EDT Tel , Service support , EKG reviewed and showed normal sinus rhythm. Questionable Q in lead III Assessment/Plan All Active Problems (Last Reviewed 04/20/17 @ 11:22 by Emil Painter) Chest pain (Acute) Otitis media (Acute) Sinusitis, acute maxillary (Acute) 1. Chest pain * Heart score of 2 * JOHN score of 0 * Asked to admit the patient for concern from the emergency room physician can patient's chest pain and diaphoresis and shortness of breath. * Will admit the patient and have him complete a rest test. Patient is pretty healthy and informed him that he may have to run with treadmill which he has no issues with his he is very active overall. Patient may have to run because to get his heart rate up to the age-adjusted range per the [employer] protocol * Cycle troponins * My concern is that this is likely not his heart and could be GI or even musculoskeletal. We will start him empirically on Protonix. 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 I explained to patient if his symptoms persist and his cardiac workup is negative he may need to see a laboratory supervisor for possible EGD. 2. DVT prophylaxis: Patient is low risk, no DVT prophylaxis is necessary at this time and also the fact the patient is under observation status. Code Visit OBSV E AND M: 05230 Initial observation care L2 10/03/172002 <Electronically signed by Ashly Paez DO> Date Ashly Paez DO Cosigner Signature: Date (if applicable) CC: Ashly Paez DO; Ahsly Milligan MD; Nathan Yung MD Signed CBC W/DIFF, AUTOMATED Collected: 10/03/2017 Status: F Source: [place] 5:45 PM [facility] [place] TYPE CODE TESTS RESULT OUT OF RANGE REFERENCE UNITS LAB L100.1000 4.4-11.0 K/mm3 Normal WBC 6.3 LAB L100.1200 4.6-6.2 M/mm3 Low RBC 4.59 LAB L100.1300 13.0-16.5 g/dl Normal HGB 13.8 LAB L100.1400 40-54 % Normal HCT 42.2 LAB L100.1500 80-94 fL Normal MCV 91.9 LAB L100.1600 27.0-32.0 pg Normal MCH 30.1 LAB L100.1700 32-36 g/gl Normal MCHC 32.7 LAB L100.1810 11.6-14.6 % Normal RDW CV 13.0 LAB L100.1820 35.1-43.9 fl Normal RDW SD 43.3 LAB L100.1900 150-450 K/mm3 Normal PLT 260 LAB L100.2000 6.2-12.0 fl Normal MPV 9.9 LAB L100.2100 47-70 % Normal NEUT% 51.3 LAB L100.2200 19-41 % Normal LY% 28.1 LAB L100.2300 0-10 % High MONO% 13.3 LAB L100.2400 0-5 % High EO% 6.5 LAB L100.2500 0-1 % Normal BASO% 0.6 LAB L100.2550 0.0-0.9 % Normal IM GRAN % 0.200 Result Comment: IG% - Immature Granulocytes (promyelocytes, myelocytes and metamyelocytes) > 1% indicates that a LEFT SHIFT is Present. LAB L100.2620 2.0-7.7 X10 3/uL Normal Absolute Neut 3.2 LAB L100.2720 0.83-4.51 X10 3/ul Normal Absolute Lymph 1.77 Performed By: #### L100.0100 #### [facility] [address] [place], [address] BASIC METABOLIC Collected: 10/03/2017 Status: F Source: [place] PROFILE (BMP) 5:45 PM [facility] [place] TYPE CODE TESTS RESULT OUT OF RANGE REFERENCE UNITS LAB L501.0100 74-106 mg/dL Normal GLU 98 Result Comment: Please note revised GLUCOSE reference range effective 2017. LAB L501.1000 7-18 mg/dL High BUN 19 LAB L501.1100 0.70-1.30 mg/dL Normal CREAT,SERUM 1.00 Result Comment: The validity of the calculated GFR AND GFRAA in patients over 70 years has not been determined. Clinical correlation is essential. LAB L501.1110 >60 mL/min Normal EST GFR 88 Result Comment: Non- GFR Calc LAB L501.1115 >60 mL/min Normal EST GFR - AA 106 Result Comment: GFR Calc LAB L501.1255 ml/min Normal Estimated CRCL 103.54 LAB L501.1300 10-20 RATIO BUN/CRE Normal 19.0 LAB L501.2200 8.5-10 mg/dL .1 CA Normal 8.9 LAB L501.5300 136-14 mmol/L 5 NA Normal 142 LAB L501.5600 3.5-5. mmol/L 1 K Normal 4.1 LAB L501.5900 98-107 mmol/L CL Normal 107 LAB L501.6100 21.0-3 mmol/L 2.0 CO2 Normal 31.0 LAB L501.6200 5-15 Low GAP 4 Performed By: #### L500.2500, L501.4010 #### [facility] [address] [place], [address] TROPONIN-I Collected: 10/03/2017 Status: F Source: [place] 5:45 PM [facility] [place] TYPE CODE TESTS RESULT OUT OF RANGE REFERENCE UNITS LAB L501.4010 <0.045 ng/mL Normal < 0.015 TROPONIN-I Result Comment: TROPONIN-I EXPECTED VALUES <0.045 Negative 0.045 - 0.590 Consistent with Cardiac Damage > OR = 0.600 Critical Value Not every elevated troponin is indicative of ID. These values should be used with clinical judgement in examining the patient's clinical picture for diagnosis. To establish a diagnosis of ID versus myocardial injury, there must be a demonstrated rise and/or fall in the troponin values, in addition to ischemic symptoms, EKG changes, new regional wall motion abnormality, and/or angiographical evidence. PLEASE NOTE: REFERENCE RANGES EDITED 17 Performed By: #### L500.2500, L501.4010 #### [facility] [address] [place], [place], [id number] D-DIMER QUANTITATIVE Collected: 10/03/2017 Status: F Source: [place] (DVT/PE) 5:45 PM [facility] [place] TYPE CODE TESTS RESULT OUT OF RANGE REFERENCE UNITS LAB L300.8000 0.27-0.49 FEU/ug/m Normal D-DIMER 0.27 QUANT Result Comment: NORMAL D-Dimer level (<0.50) indicates no DVT or PE. Performed By: #### L300.8000 #### [facility] [address] [facility] [place], [id number] CHEST 1 VIEW Observed: 10/03/2017 Status: F Source: [place] (PORTABLE) 5:37 PM [facility] [place] [facility] Imaging Services [address] [place] [address] Chest 1 View (Portable) MR#: [id number] Acct: [id number] Name: ISACC MATA Rep #: [id number] : 1975 M 42 From: Herb Neely MD PCP: Ashly Milligan MD Status: REG ER Study: Chest 1 View (Portable) Date of Exam: 10/03/17 Exam# [id number] Ordering Dr: Mouna Berman MD STUDY: X-RAY CHEST REASON FOR EXAM: Male, 42 years old. Chest pain TECHNIQUE: Frontal view of the chest COMPARISON: None. FINDINGS: The lungs are clear. There are no pleural effusions. There is no pneumothorax. The heart is normal in size. The visualized osseous structures are within normal limits. RAD/Chest 1 View (Portable) IMPRESSION: No acute thoracic pathology. Electronically Signed: Herb Neely, at 18:20 EDT Tel , Service support , CC: Ashly Milligan MD; Mouna Berman MD Operations General Agent: Signed DISCHARGE INSTRUCTION Observed: 07/21/2017 Status: F Source: [place] 11:25 AM [facility] [place] [facility] Medical Records Department [address] [place] [address] Instructions for Home/Discharge Instructions 07/21/17 1124 MR#: [id number] Acct: [id number] Name: ISACC MATA Rep #: [id number] : 1975 41 From: Ashly Beckman MD PCP: Nathan Yung Status: REG SDC - Discharge Diagnoses Current Active Problems: Current Active and Chronic Problems (Last Reviewed 04/20/17 @ 11:22 by Emil Painter) 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 Call your doctor if your incision/area has: Continuous Slow Oozing, Increased Pain/ Swelling, Swelling at the incision site Call your doctor if you observe: Fever of 101 or Higher, Uncontrolled pain Allergies/Adverse Reactions: Allergies Sulfa (Sulfonamide Antibiotics) Allergy (Verified 07/21/17 09:03) Anaphylaxis Medications to take at Discharge multivitamin capsule 1 cap PO DAILY 04/05/17 vitamin B complex capsule 1 cap PO DAILY 04/05/17 Citalopram [Celexa] 10 mg PO DAILY 07/14/17 Primary Care Physician: Nathan Yung MD [Primary Care Provider] - Please Follow Up With: Ashly Beckman MD When: 2 weeks 07/21/17 1125 <Electronically signed by Ashly Beckman MD> Date Ashly Beckman MD CC: Nathan Yung OPERATIVE REPORT Observed: 07/21/2017 Status: F Source: [place] 11:24 AM [facility] [place] [facility] Medical Records Department [address] [place] [address] Operative Report 07/21/17 1114 MR#: [id number] Acct: [id number] Name: ISACC MATA Rep #: [id number] : 1975 41 From: Ashly Beckman MD PCP: Nathan Yung Status: [facility] Y Location: [place] [address] Problem List (1) Other specified disorders of muscle Status: Chronic (2) Tongue neoplasm Status: Chronic Report of Operation Date of Procedure: 07/21/17 Pre-Operative Diagnosis: Mass left anterior tongue Post-Operative Diagnosis: same Surgery/Procedure Performed:: Excision of mass anterior 2/3 of tongue Description of Surgical Findings:: Isacc is a 41-year-old male who presents with a persistent enlargement of the left anterior aspect of the tongue within its substance. Imaging did not show any identifiable abnormality however observation and therapy failed to result in resolution given the possibility for a rare abnormality such as leiomyoma amyloidosis or other unusual tongue abnormality open biopsy was offered for definitive evaluation as this caused him much concern in distress. The risk of tongue tongue numbness alteration of taste and scar tissue were reviewed and he was agreeable to proceed. The risks, alternatives, potential benefits, and complications were discussed at length and any questions answered to the patient and/or caregiver's satisfaction. Witnessed informed consent was obtained in the office, and the patient and/or caregiver was agreeable to proceed. Procedure went as follows: The patient was identified in the preoperative holding and brought to the operating room where he was placed under general anesthesia and intubated. When appropriate anesthesia is obtained, the oral cavity was examined and the tongue palpated. There is noted to be some hemihypertrophy of the left aspect of the anterior tongue within the belly of the tongue musculature. Dental wedge was placed and a 3-0 silk suture was placed in the anterior tongue midline to allow for retraction. The tongue was then injected with 2% lidocaine with 1-200,000 epinephrine and using monopolar cautery a 2 cm x 1 cm ellipse was then made to the anterior aspect of the tongue. Dissection was then carried deeply into the muscular layer and the enlarged muscular area was then excised and sent for pathologic specimen. The wound was then closed deeply with interrupted 3-0 Vicryl suture followed by interrupted 3-0 Vicryl sutures to the tongue mucosa. No bleeding was encountered and the patient was returned to anesthesia where he was revived and extubated without complication having tolerated the procedure well. Type of Anesthesia:: General Anesthesiologist: Julian Burrows Special Medications: none Specimen's removed: Biopsy of anterior 2/3 of tongue, left Drains: none Estimated Blood Loss (mL): 0 mL Fluids Replaced: 700 mL Grafts/Implants Used: none - Complications none - Admit VTE Documentation VTE Present on Admission: No VTE Mechan Device Prophylaxis: SCD's VTE Pharm Prophylaxis ordered?: No 07/21/17 1124 <Electronically signed by Ashly Beckman MD> Date Ashly Beckman MD CC: Ashly Beckman MD; Nathan Yung Signed TONGUE BIOPSY Observed: 07/21/2017 Status: F Source: [place] 12:00 AM [facility] [place] Patient: ISACC MATA : 1975 (41/M) Acct Num: [id number] Phys: Ashly Beckman MD Unit Num: [id number] Loc: [facility] Specimen: [id number] Received: 07/21/17 - 1107 Spec Type: TONGUE BX TISSUES TISSUES: Tongue, NOS GROSS DESCRIPTION Received fresh for frozen section diagnosis, later on canceled, labeled with the patient's name is a specimen designated biopsy tongue, left anterior two-third. The specimen consists of a piece of pink-red mucosal tissue measuring 3 x 0.6 cm and up to 1 cm in thickness. The specimen is inked, bisected and submitted entirely in one cassette. / BANDAR:subhash 07/21/17 TC:5 CPT: 04713, 93922 HEADER OPERATION: Biopsy tongue, anterior, frozen section PRE-OP DIAGNOSIS: Glossodynia; hemihypertrophy of muscle, tongue TISSUE SUBMITTED: Biopsy tongue left anterior 2/3 for FS at 1103 MICROSCOPIC DESCRIPTION Slides are reviewed. MICROSCOPIC DIAGNOSIS Tongue, anterior two-third, biopsy: Squamous mucosa with underlying skeletal muscle tissue with pseudoepitheliomatous hyperplasia, clinically glossodynia and hemihypertrophy of muscle, tongue. Focal superficial bacterial colonization. Special stain for fungi is negative for organisms; matched control is appropriate. SJ:subhash 07/25/17 Signed Paddy Dupont 07/25/17 <signature on file> Performed By: #### PTOBX #### [facility] [address] [place], [place] [address], [address] D/C SUMMARY- SP Observed: 07/10/2017 Status: F Source: [place] 1:46 PM [facility] [place] [facility] Speech Pathology [facility] [address] [place] [address]. [address] [place] [address] Fax REHABILITATION SERVICES DISCHARGE SUMMARY MR#: [id number] Acct: [id number] Name: ISACC MATA Rep #: [id number] : 1975 41 From: Thierno Hou M.A., CCC-TOBACCO DIPPER Referring Dr.: Nathan Yung Status: REG [facility] Insurance: [employer] Discharge Summary - Discharged: Discharge: Isacc Mata Is discharged from [facility] as of July 10, 2017. He decided that he did not want a follow up appointment and asked to be discharged. 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 A home program was given to the patient with no direct therapy warranted as the patient wanted to consult another ENT. Patient saw Dr Beckman in February and had blood work and a CT scan both of which patient reported were normal. The patient requested discharge without a follow up session on May 15, 2017 as he said is doing well. A copy of this patient s discharge summary will be sent to his referring physician. <Electronically signed by Thierno Hou M.A., CCC-TOBACCO DIPPER> 07/10/17 1346 CC: Nathan Yung JLB Signed COMPREHENSIVE METABOLIC Collected: 06/01/2017 Status: F Source: [facility] 11:09 AM [facility] [place] Order Comment: Is Patient Taking Vitamins or Folic Acid Supplements? Y TYPE CODE TESTS RESULT OUT OF RANGE REFERENCE UNITS LAB L501.0100 74-106 mg/dL Normal GLU 85 Result Comment: Please note revised GLUCOSE reference range effective 2017. LAB L501.1000 7-18 mg/dL High BUN 20 LAB L501.1100 0.70-1.30 mg/dL Normal CREAT,SERUM 0.87 Result Comment: The validity of the calculated GFR AND GFRAA in patients over 70 years has not been determined. Clinical correlation is essential. LAB L501.1110 >60 mL/min Normal EST GFR 103 Result Comment: Non- GFR Calc LAB L501.1115 >60 mL/min Normal EST GFR - AA 124 Result Comment: GFR Calc LAB L501.1300 10-20 RATIO High BUN/CRE 22.9 LAB L501.1500 6.4-8.2 g/dL T Normal PROT 7.8 LAB L501.1800 3.2-5.0 g/dL Normal ALB 4.1 LAB L501.1950 2.2-4.2 g/dL Normal GLOB 3.7 LAB L501.2000 0.9-2.4 RATIO Normal A/G 1.1 LAB L501.2200 8.5-10.1 mg/dL CA Normal 8.7 LAB L501.4100 15-37 U/L Normal AST 32 LAB L501.4305 45-117 U/L Normal ALK P 62 LAB L501.4405 16-61 U/L Normal ALT 33 Result Comment: Please note revised ALT reference range effective 2017. LAB L501.4600 0.20-1.00 mg/dL Normal T BILI 0.30 LAB L501.5300 136-145 mmol/L Normal NA 141 LAB L501.5600 3.5-5.1 mmol/L Normal K 3.9 LAB L501.5900 98-107 mmol/L High CL 108 LAB L501.6100 21.0-32.0 mmol/L Normal CO2 26.0 LAB L501.6200 5-15 Normal GAP 7 Performed By: #### L500.4050, L501.9520, L503.6150, L503.6550, L506.0250 #### [facility] [address] [place], [place], [address] THYROID STIM HORMONE Collected: 06/01/2017 Status: F Source: [place] (TSH) 11:09 AM [facility] [place] [facility] Order Comment: Is Patient Taking Vitamins or Folic Acid Supplements? Y TYPE CODE TESTS RESULT OUT OF RANGE REFERENCE UNITS LAB L501.9520 0.358-3.74 uIU/mL Normal TSH 1.42 Performed By: #### L500.4050, L501.9520, L503.6150, L503.6550, L506.0250 #### [facility] [address] [place], [address] IRON Collected: 06/01/2017 Status: F Source: [place] 11:09 AM [facility] [place] [facility] Order Comment: Is Patient Taking Vitamins or Folic Acid Supplements? Y TYPE CODE TESTS RESULT OUT OF RANGE REFERENCE UNITS LAB L503.6150 65-175 ug/dL Normal IRON 89 Performed By: #### L500.4050, L501.9520, L503.6150, L503.6550, L506.0250 #### [facility] [address] [place], [address] FERRITIN Collected: 06/01/2017 Status: F Source: [place] 11:09 AM [facility] [place] [facility] Order Comment: Is Patient Taking Vitamins or Folic Acid Supplements? Y TYPE CODE TESTS RESULT OUT OF RANGE REFERENCE UNITS LAB L503.6550 26-388 ng/mL Normal FERRITIN 114 Performed By: #### L500.4050, L501.9520, L503.6150, L503.6550, L506.0250 #### [facility] [address] [place], [address] FOLATES, (FOLIC ACID) Collected: 06/01/2017 Status: F Source: [place] 11:09 AM [facility] [place] [facility] Order Comment: Is Patient Taking Vitamins or Folic Acid Supplements? Y TYPE CODE TESTS RESULT OUT OF RANGE REFERENCE UNITS LAB L506.0250 3.1-55.4 ng/mL Normal FOLATES 18.80 Performed By: #### L500.4050, L501.9520, L503.6150, L503.6550, L506.0250 #### [facility] [address] [place], [address] VITAMIN B12 Collected: 06/01/2017 Status: F Source: [place] 11:09 AM [facility] [place] [facility] TYPE CODE TESTS RESULT OUT OF REFERENCE UNITS RANGE LAB L503.0105 211-911 pg/mL High Vitamin B12 > 2000 Performed By: #### L503.0105 #### [facility] [address] [place], [address] ANTINUCLEAR ANTIBODIES Collected: 06/01/2017 Status: F Source: ELI DIRECT 11:09 AM [facility] [place] [facility] Order Comment: CC COPY OF RESULTS TO DR.TRACY REYES IN [facility] TYPE CODE TESTS RESULT OUT OF RANGE REFERENCE UNITS LAB L3100.5475 Negative Normal Negative JOHN-DIRECT Result Comment: Performed at: [address] [id number] Hadoop Java Developer: Carlos Akers PhD, Phone: [phone] Performed By: #### L3100.5475 #### [facility] (refer to report for specific site) refer to report for address and phone number CELIAC DISEASE Collected: 06/01/2017 Status: F Source: ELI PROFILE 11:09 AM [facility] [place] [facility] Order Comment: CC COPY OF RESULTS TO DR.TRACY REYES IN [facility] TYPE CODE TESTS RESULT OUT OF RANGE REFERENCE UNITS LAB L3200.1400 90-386 mg/dL Normal IMMUNO A 307 LAB L3410.2900 0-3 U/mL Normal tTG IGA <2 Result Comment: Negative 0 - 3 Weak Positive 4 - 10 Positive >10 Tissue Transglutaminase (tTG) has been identified as the endomysial antigen. Studies have demonstr- ated that endomysial IgA antibodies have over 99% specificity for gluten sensitive enteropathy. LAB L3410.2975 Negative Normal ENDOMYSIAL IGA Negative Performed By: #### L3410.2400, L4600.0155 #### [facility] (refer to report for specific site) refer to report for address and phone number MTHFR DNA VARIANT Collected: 06/01/2017 Status: F Source: ELI 11:09 AM [facility] [place] [facility] Order Comment: CC COPY OF RESULTS TO DR.TRACY REYES IN [facility] TYPE CODE TESTS RESULT OUT OF RANGE REFERENCE UNITS LAB L4600.0205 . 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 Compound heterozygosity for the C677T and R0601P variants is unlikely to be of clinical significance, based on consensus of published reports. This combination of results, however, may be associated with increased risk for the development of hyperhomocysteinemia when the individual is deficient in folate, vitamin B6, or vitamin B12. A fasting homocysteine level should be measured. This genotype alone in the absence of hyperhomocysteinemia, does not increase risk of venous thrombosis, coronary artery disease or recurrent loss. However, hyperhomocysteinemia may also occur due to mutations in enzymes other than MTHFR that are involved in homocysteine metabolism, or arise due to acquired factors. In the evaluation of vascular and obstetric risk, consider measuring fasting homocysteine. Additional risk factors may be detected through systematic clinical laboratory analysis. Methylenetetrahydrofolate reductase (MTHFR) is a newton enzyme in the folate pathway and is responsible for the metabolism of homocysteine. There are two common variants in the MTHFR gene, c.655c>T (p.Nra267Vnot), referred to as C677T, and c.1286A>C (p.Hfh482Eco), referred to as W6949O. Individuals homozygous for C677T (two copies of the variant), have decreased activity of the MTHFR enzyme and a predisposition to hyperhomocysteinemia, particularly when deficient in folate. Hyperhomocysteinemia is a risk factor for venous thrombosis and coronary artery disease and is associated with an increased risk of open neural tube defects. The C677T variant does not independently increase risk of these conditions in the absence of hyperhomocysteinemia. The R3779A variant is not associated with elevated homocysteine levels unless a C677T variant is also present; however, the clinical significance of heterozygosity for both C677T and D7446T is controversial. Population data suggest that these two variants are not present on the same chromosome, but rare exceptions have been reported of triple variant MTHFR genotypes (ie. homozygous for one variant and heterozygous for the other). Homozygosity for C677T has an estimated frequency of 10% to 15% in Caucasians and 25% in Hispanics. Additional information: Dietary folic acid, B6 and B12 supplementation has been suggested to lower homocysteine levels in some people. Folic acid supplementation has been shown to reduce the occurrence of neural tube defects. Genetic counselors are available for health care providers to discuss results at [phone]. Methodology: DNA analysis of the MTHFR gene was performed by PCR amplification followed by restriction analysis. The diagnostic sensitivity is >99% for both. Molecular-based testing is highly accurate, but as in any laboratory test, rare diagnostic errors may occur. All test results must be combined with clinical information for the most accurate interpretation. This test was developed and its performance characteristics determined by [employer]. It has not been cleared or approved by the Food and Drug Administration. References: Lindsey LD, Kameron Q. Am J Epidemiol 2000; 151(9):862-877. Maty DE SANTIAGO, Ok DE DIOS. Arch Pathol Lab Med 2007; 131(6):872-884. Frosst P et al. Annie Brenda 1995; 10(1):111-113. Sandy SE et al. Brenda Med 2013; 15(2):153-156. Srinivas C et al. Obstet Gynecol 2011; 118(3):730-740. Tico B et al. Eur J Epidemiol 2013; 28(8):621-647. Tia Villeda, PhD, FACMG Kayla Hein, PhD, FACMG Lee Ann Arguelles M.S., PhD, FACMG Gail Carrion, PhD, FACMG Dinora Ferrer, PhD, FAC Jose Maria Teague, PhD, FAC Performed at: [facility] [address] [id number] Hadoop Java Developer: Carlos Akers PhD, Phone: [phone] Performed at: [facility] [address] [id number] Hadoop Java Developer: Theo Alford MD, Phone: [phone] Performed By: #### L3410.2400, L4600.0155 #### [facility] (refer to report for specific site) refer to report for address and phone number CNTHERAPY Observed: 05/18/2017 Status: COMPLETED Source: [place] 3:[address] [facility] REPOS[facility] OT/PT/Speech Visit (SPWCMN) ISACC MATA ([id number]) 1975 M Date Time Provider Department 05/18/17 3:15 PM EMIL CLINE (TOBACCO DIPPER) SPWCMN Date Time Provider Department Center 05/18/2017 3:15 PM [id number], EMILY *SPWCMN Jerry Agee Reason for Visit: Speech Therapy [3489] Primary Visit Diagnosis:Dysarthria [R47.1] Allergies As of Date: 05/18/2017 Noted Allergy Reaction SULFA (SULFONAMIDE ANTIBIOTICS) 12/23/2015 10 - Anaphylaxis Date Reviewed: 05/05/2017 Reviewed by: Bipin Leyva Ma - Fully Assessed Prescriptions as of 05/18/2017 Sig: MULTI VITAMIN ORAL Take by mouth. Progress Notes: Emil Cline [facility]-TOBACCO DIPPER, CCC/TOBACCO DIPPER 05/18/2017 4:59 PM Addendum [facility] Speech Language Pathology Consult SPEECH LANGUAGE EVALUATION 05/18/2017 IMPRESSIONS: Speech perceived to be normal. Elicited an acute episode of intense pain (rated 5/10) located at the tip of his tongue on the left side and slightly underneath his tongue during reading task. Provided training and handouts on lingual exercises. PROGNOSIS/REHAB POTENTIAL: Etiology of tongue pain not established - thus, unsure whether tongue exercises will be effective RECOMMENDATIONS / PLAN: - Begin tongue exercises, focused on range of motion / stretching, 3-5 times a day for 2-4 week trial. - Patient will call or message me to let me know response to exercises. If positive, would suggest a follow-up speech therapy appointment. If no response, then follow-up with Dr. Sullivan. Emil Cline, [facility]-TOBACCO DIPPER Voicemail: [phone] Beeper: [id number] Name: Isacc Mata : 1975 CC #: [id number] Referring Physician: Dr. Sullivan Date of onset: 09/27/2016 (started in Sep last year) Start of care: 05/18/2017 Previous Function Level: 05/18/2017 DIAGNOSIS/HISTORY: Isacc Mata is a 41 year old man referred by Dr. Sullivan for speech-language evaluation and treatment due to dysarthria. Per patient, referral to speech therapy was to try some oral-motor exercises to stretch the scar tissue in his tongue. Patient reported he is skeptical whether the lump at the tip of his tongue is scar tissue but he is willing to try exercises. He was told by ENT there may be some medical management if speech therapy does not help. Patient Stated Goals/ Problems: - History of clogged salivary gland at age 21. Bothered him for about 1-month after removal and then no problems since that time. Removed along left ventral surface of tongue. Has slight numbness along tip of tongue since that time which has not been bothersome. - Sudden onset of tongue pain on morning when he woke up in September (2016). Jackson like entire tongue was a minoo horse, extremely painful, and felt like he couldn't move tongue. He could move his tongue but caused pain. This episode lasted 1 week and occurred during a stressful time of his life. Tried Yoga / massage - tension in neck / shoulders went away and tongue loosened up but was still sore. - Since that time and currently: feels like a lump at the left tip of his tongue which gets tight. The more he talks, the more tight and painful it becomes. Eventually, with prolonged speaking, it becomes so painful he has to stop and take a break. - saw 3 ENTs, oral surgeon, and dentist. They found lump on tip of tongue that comes and goes. The more he talks, the more pronounced it becomes and interferes with talking and becomes painful. - there is no pain if he is not talking. - went to acupuncture - felt like tongue went back to 80% of normal when he was hooked up to electrodes, I felt like a release! Per Dr. 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 it was epicentered along the right portion of the tip. Afterwards, he had loss of sensation to the tip of the tongue. He had been well up until September of this year when he began experiencing a sensation like a 'minoo horse' along the scar. This tends to worsen with speech. He expresses that it is a tight sensation. He has since seen two otolaryngologists, and speech pathologist with little to no improvement. He had a CT scan as well as rheumatologic labs which were negative. He feels that over the course of the day, it adversely effects his speech to the point that he becomes self-conscious about it. 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 He has also been experiencing increased stress in his life and isn't sure if this is related to his above symptoms. He does not that relaxation techniques do tend to help. He also admits that when he drinks alcohol, the sensation abates. He smokes the occasional cigar in the summer. No past medical history on file. PAST SURGICAL HISTORY Procedure Laterality Date - PAST SURGICAL HISTORY OF 1998 tongue ?Pt is identified by name and date: Yes? PAIN: 5/10 complaint or sign of pain, localized just to the tip of the tongue. HEARING STATUS: Appeared functional. 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 BEHAVIORAL OBSERVATIONS: Alert, Cooperative, Oriented. Normal cognitive-communication skills. PRESENT FEEDING METHOD: Oral Diet Level: Regular Diet with regular liquids Dentition: Adequate, now has bite guard, Tracheostomy: No O2: Room Air ORAL MECHANISM EVALUATION FACIAL SYMMETRY AT REST: Very subtle asymmetry of face. MANAGEMENT OF SECRETIONS: Clear, moist oral cavity LABIAL Pursing: Within Functional Limits Retraction: Within Functional Limits VELAR Elevation / AH: Within Functional Limits Gag Reflex: Did not test LARYNGEAL Wet Vocal Quality: No Cough: Within Functional Limits Clear Throat: Within Functional Limits LINGUAL Protrusion: Noted subtle fullness of shape to left blade of tongue. Retraction: Within functional limits Lateralization: Within functional limits Elevate / Depress: Within functional limits COMMENTS: -Reported numbness on left dorsal side of tongue tip. TESTS ADMINISTERED: Non standardized evaluation of speech RECEPTIVE LANGUAGE AUDITORY COMPREHENSION Conversation Level: Within Functional Limits EXPRESSIVE LANGUAGE VERBAL EXPRESSION Conversational Discourse: Within Functional Limits SPEECH PRODUCTION Articulation: Within Functional Limits Intelligibility: Within Functional Limits Vocal Quality: Within Functional Limits Vocal Intensity: Within Functional Limits Rate / Prosody: Within Functional Limits Reading passages: Read grandfather passage and rainbow passage without break. By the end of the rainbow passage, patient reported onset of tongue pain COMMENTS: Speech and language skills appeared intact. Able to elicit acute episode of tongue pain with prolonged reading task. Pain was located left tip of tongue and just underneath tongue. Pain localized to this very small area of his tongue only. Speaking pattern changed during episode of pain with slightly slower rate with more of scanning pattern of [id number]-[id number] reading but articulation remained intact. Suspect change in speech was related to patient's level of pain and distraction from the task of reading. Able to reduce pain but taking a break with no speaking. No problems with pain related to eating, chewing, or swallowing. Provided handouts and training on lingual exercises. When patient pulled tongue up and to the left, he felt a pulling sensation which felt good initially but now entire tip of tongue feels like it freezes up. Suggested some simple lingual range of motion exercises for tongue. Suggested trying some massage of tongue with toothbrush. Could also try vibration from electric toothbrush. Encouraged patient to complete lingual exercises 3-5 times a day for short period of time (0-5 minutes). PATIENT EDUCATION: Provided education on tongue anatomy. Answered patient's questions about tongue and speech production. Educated on plan after this assessment. Outcome Measures [facility] NOMS Evaluation Spoken Language Expression 7 Spoken Language Comprehension 7 Motor Speech 7 Voice 7 7-WFL; 6-mild; 5-mild-mod; 4-mod; 2-zre-wkvezw; 2-severe; 1-profound Results and Treatment Plan discussed with: Patient. Provided my contact information. Date of Evaluation: 05/18/2017 Emil Cline CCC-TOBACCO DIPPER Speech Language Pathologist Voicemail: [phone] Beeper: [id number] Previous Version PROGRESS Observed: 05/18/2017 Status: COMPLETED Source: [place] 3:[address] [facility] REPOSITORY HNO ID: [id number] Author: Emil Nascimento (Supervisor Electronic Testing) ROSSI Cline/TOBACCO DIPPER Service: (none) Author Type: Speech Language Pathologist Type: Progress Notes Filed: 05/18/2017 4:59 PM Note Text: [facility] Path[facility] Consult SPEECH LANGUAGE EVALUATION 05/18/2017 IMPRESSIONS: Speech perceived to be normal. Elicited an acute episode of intense pain (rated 5/10) located at the tip of his tongue on the left side and slightly underneath his tongue during reading task. Provided training and handouts on lingual exercises. PROGNOSIS/REHAB POTENTIAL: Etiology of tongue pain not established - thus, unsure whether tongue exercises will be effective RECOMMENDATIONS / PLAN: - Begin tongue exercises, focused on range of motion / stretching, 3-5 times a day for 2-4 week trial. - Patient will call or message me to let me know response to exercises. If positive, would suggest a follow-up speech therapy appointment. If no response, then follow-up with Dr. Sullivan. Emil Cline, [facility]-TOBACCO DIPPER Voicemail: [phone] Beeper: [id number] Name: Isacc Mata : 1975 CC #: [id number] Referring Physician: Dr. Sullivan Date of onset: 09/27/2016 (started in Sep last year) Start of care: 05/18/2017 Previous Function Level: 05/18/2017 DIAGNOSIS/HISTORY: Isacc Mata is a 41 year old man referred by Dr. Sullivan for speech-language evaluation and treatment due to dysarthria. Per patient, referral to speech therapy was to try some oral-motor exercises to stretch the scar tissue in his tongue. Patient reported he is skeptical whether the lump at the tip of his tongue is scar tissue but he is willing to try exercises. He was told by ENT there may be some medical management if speech therapy does not help. Patient Stated Goals/ Problems: - History of clogged salivary gland at age 21. Bothered him for about 1-month after removal and then no problems since that time. Removed along left ventral surface of tongue. Has slight numbness along tip of tongue since that time which has not been bothersome. - Sudden onset of tongue pain on morning when he woke up in September (2016). Jackson like entire tongue was a minoo horse, extremely painful, and felt like he couldn't move tongue. He could move his tongue but caused pain. This episode lasted 1 week and occurred during a stressful time of his life. Tried Yoga / massage - tension in neck / shoulders went away and tongue loosened up but was still sore. - Since that time and currently: feels like a lump at the left tip of his tongue which gets tight. The more he talks, the more tight and painful it becomes. Eventually, with prolonged speaking, it becomes so painful he has to stop and take a break. - saw 3 ENTs, oral surgeon, and dentist. They found lump on tip of tongue that comes and goes. The more he talks, the more pronounced it becomes and interferes with talking and becomes painful. - there is no pain if he is not talking. - went to acupuncture - felt like tongue went back to 80% of normal when he was hooked up to electrodes, I felt like a release! Per Dr. 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 it was epicentered along the right portion of the tip. Afterwards, he had loss of sensation to the tip of the tongue. He had been well up until September of this year when he began experiencing a sensation like a 'minoo horse' along the scar. This tends to worsen with speech. He expresses that it is a tight sensation. He has since seen two otolaryngologists, and speech pathologist with little to no improvement. He had a CT scan as well as rheumatologic labs which were negative. He feels that over the course of the day, it adversely effects his speech to the point that he becomes self-conscious about it. 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 He has also been experiencing increased stress in his life and isn't sure if this is related to his above symptoms. He does not that relaxation techniques do tend to help. He also admits that when he drinks alcohol, the sensation abates. He smokes the occasional cigar in the summer. No past medical history on file. PAST SURGICAL HISTORY Procedure Laterality Date - PAST SURGICAL HISTORY OF 1998 tongue ?Pt is identified by name and date: Yes? PAIN: 5/10 complaint or sign of pain, localized just to the tip of the tongue. HEARING STATUS: Appeared functional. 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 BEHAVIORAL OBSERVATIONS: Alert, Cooperative, Oriented. Normal cognitive-communication skills. PRESENT FEEDING METHOD: Oral Diet Level: Regular Diet with regular liquids Dentition: Adequate, now has bite guard, Tracheostomy: No O2: Room Air ORAL MECHANISM EVALUATION FACIAL SYMMETRY AT REST: Very subtle asymmetry of face. MANAGEMENT OF SECRETIONS: Clear, moist oral cavity LABIAL Pursing: Within Functional Limits Retraction: Within Functional Limits VELAR Elevation / AH: Within Functional Limits Gag Reflex: Did not test LARYNGEAL Wet Vocal Quality: No Cough: Within Functional Limits Clear Throat: Within Functional Limits LINGUAL Protrusion: Noted subtle fullness of shape to left blade of tongue. Retraction: Within functional limits Lateralization: Within functional limits Elevate / Depress: Within functional limits COMMENTS: -Reported numbness on left dorsal side of tongue tip. TESTS ADMINISTERED: Non standardized evaluation of speech RECEPTIVE LANGUAGE AUDITORY COMPREHENSION Conversation Level: Within Functional Limits EXPRESSIVE LANGUAGE VERBAL EXPRESSION Conversational Discourse: Within Functional Limits SPEECH PRODUCTION Articulation: Within Functional Limits Intelligibility: Within Functional Limits Vocal Quality: Within Functional Limits Vocal Intensity: Within Functional Limits Rate / Prosody: Within Functional Limits Reading passages: Read grandfather passage and rainbow passage without break. By the end of the rainbow passage, patient reported onset of tongue pain COMMENTS: Speech and language skills appeared intact. Able to elicit acute episode of tongue pain with prolonged reading task. Pain was located left tip of tongue and just underneath tongue. Pain localized to this very small area of his tongue only. Speaking pattern changed during episode of pain with slightly slower rate with more of scanning pattern of rqbu-td-eriq reading but articulation remained intact. Suspect change in speech was related to patient's level of pain and distraction from the task of reading. Able to reduce pain but taking a break with no speaking. No problems with pain related to eating, chewing, or swallowing. Provided handouts and training on lingual exercises. When patient pulled tongue up and to the left, he felt a pulling sensation which felt good initially but now entire tip of tongue feels like it freezes up. Suggested some simple lingual range of motion exercises for tongue. Suggested trying some massage of tongue with toothbrush. Could also try vibration from electric toothbrush. Encouraged patient to complete lingual exercises 3-5 times a day for short period of time (0-5 minutes). PATIENT EDUCATION: Provided education on tongue anatomy. Answered patient's questions about tongue and speech production. Educated on plan after this assessment. Outcome Measures [facility] Evaluation Spoken Language Expression 7 Spoken Language Comprehension 7 Motor Speech 7 Voice 7 7-WFL; 6-mild; 5-mild-mod; 4-mod; 9-dcz-qlpwms; 2-severe; 1-profound Results and Treatment Plan discussed with: Patient. Provided my contact information. Date of Evaluation: 05/18/2017 Emil Cline [facility] Speech Language Pathologist Voicemail: [phone] Beeper: [id number] D/C SUMMARY- SP Observed: 05/15/2017 Status: F Source: [place] 11:50 AM [facility] Speech Pathology [facility] [address] [place] [address]. [address] [place] [address] Fax REHABILITATION SERVICES DISCHARGE SUMMARY MR#: [id number] Acct: [id number] Name: ISACC MATA Rep #: [id number] : 1975 41 From: Thierno Hou M.A., CCC-TOBACCO DIPPER Referring Dr.: Nathan Yung Status: REG [facility] Insurance: [employer] Discharge Summary - Discharged: Discharge: Isacc Mata is discharged from [facility] as of May 15, 2017. 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 A home program was given to the patient with no direct therapy warranted as the patient wanted to consult another ENT. Patient saw Dr Beckman in February and had blood work and a CT scan both of which patient reported were normal. He stated that Dr Beckman noted that bump on bottom of tongue is from scrapping it against bottom teeth. Monday he had teeth ground down to no rough spot to rub. The patient requested discharge without a follow up session on May 15, 2017 as he said is doing well. A copy of this patient s discharge summary will be sent to his referring physician. <Electronically signed by Thierno Hou M.A., ROSSI-TOBACCO DIPPER> 05/15/17 1150 CC: Nathan Yung AUDI Signed PROGRESS Observed: 05/05/2017 Status: COMPLETED Source: [place] 9:[address] [facility] RE[facility] HNO ID: [id number] Author: Ashly Sullivan Service: (none) Author Type: Physician Type: Progress Notes Filed: 05/10/2017 9:01 AM Note Text: CC: Patient presents with: New Patient: Lump on the tongue for Six months with some difficutly with speech with some left ear ache. 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 it was epicentered along the right portion of the tip. Afterwards, he had loss of sensation to the tip of the tongue. He had been well up until September of this year when he began experiencing a sensation like a 'minoo horse' along the scar. This tends to worsen with speech. He expresses that it is a tight sensation. He has since seen two otolaryngologists, and speech pathologist with little to no improvement. He had a CT scan as well as rheumatologic labs which were negative. He feels that over the course of the day, it adversely effects his speech to the point that he becomes self-conscious about it. 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 He has also been experiencing increased stress in his life and isn't sure if this is related to his above symptoms. He does not that relaxation techniques do tend to help. He also admits that when he drinks alcohol, the sensation abates. He smokes the occasional cigar in the summer. ALLERGIES Allergen Reactions - Sulfa (Sulfonamide * Anaphylaxis No current outpatient prescriptions on file prior to visit. No current facility-administered medications on file prior to visit. No past medical history on file. PAST SURGICAL HISTORY Procedure Laterality Date - PAST SURGICAL HISTORY OF 1998 tongue Social History Marital status: Spouse name: Years of education: Number of children: Social History Main Topics Smoking status: Former Smoker Packs/day: 0.00 Years: 3.00 Types: Cigars Quit date: 09/2016 Smokeless status: Never Used Comment: once a month in the summer. Alcohol use: Yes 13.5 oz/week 9 Cans of Beer (12oz) per week Drug use: No Sexual activity: Yes Partners with: Female Review of Systems: GENERAL: No weight loss, malaise or fevers. RESPIRATORY: Negative for cough, hemoptysis, wheezing, COPD, dyspnea or shortness of breath CARDIOVASCULAR: Negative for chest pain, leg swelling, hypertension, CHF or palpitations NEURO: No history of headaches, syncope, paralysis, seizures or tremors The remainder of the review of systems is negative. PHYSICAL EXAM (detailed): Constitutional: * There were no vitals taken for this visit. * General appearance: Well developed, well nourished male without obvious deformities. Patient has a normal body habitus and is well groomed. * Communication: The patient speaks with a normal voice without hoarseness or breaks in speech. Head and Face: * Overall appearance: No evident asymetries, obvious scars, lesions or masses. Palpation of face did not reveal any sinus tenderness. * Parotid and submandibular glands: No masses, tenderness or swelling. * Facial strength: House-Brackmann 1/6 bilaterally. Eyes: * Extraocular movements are intact bilaterally and primary gaze alignment is normal. * No evidence of ectropion present. Ears, Nose, Mouth and Throat: * External ears and nose: Normal in appearance, without scars, lesions, or masses. * Ears: Otoscopic examination demonstrates external auditory canals are normal bilaterally. The tympanic membranes are intact and mobile to pneumotoscopy bilaterally. * Nasal exam: Nasal mucosa is pink and the septum is midline, visualized turbinates are normal in appearance. * Mastication: The teeth appear healthy, and the lips and gums are without lesions. * Oral cavity and oropharynx: Well healed small (2 mm) incision along the ventral surface of the right tongue tip - no lesions noted. The oral mucosa, hard and soft palates, tongue, tonsil area, and posterior pharyngeal mucosa are without lesions or notable assymetries. Moist mucus membranes present. * Larynx: Base of tongue, valleculae, epiglottis and false vocal folds are normal in appearance per mirror exam. Neck: * Neck: The neck appears symmetric without scars, and on palpation is without masses, lymphadenopathy or crepitus. Trachea is midline. * Thyroid: There are no masses, thyromegaly, thyroid nodules or tenderness on palpation. Neurologic: * Mental status: Patient is alert and oriented to person, place and time Mood and affect are appropriate MEDICAL DECISION MAKING: Tongue tightness secondary to previous scar - no pathology noted Anxiety Dysarthria Will refer to speech pathology No need for biopsy Ashly Sullivan MD CNOV Observed: 05/05/2017 Status: COMPLETED Source: [place] 9:[address] [facility] REPOSIT[facility] Office Visit (OTOLMN) ISACC MATA ([id number]) 1975 M Date Time Provider Department 05/05/17 9:30 AM ASHLY SULLIVAN During your visit today, we recorded the following information about you: Bipin Leyva Ma 05/05/2017 9:46 AM Signed Tobacco Use: for 3 years. Quit 09/27/2016. Types: Cigars (once a month in the summer. ) Was smoking cessation packet given? N/A - Patient is a non- smoker or quit ANDgt;1 year ago. Was a referral initiated?N/A Patient is a non-smoker Ashly Sullivan MD 05/10/2017 9:01 AM Signed CC: Patient presents with: New Patient: Lump on the tongue for Six months with some difficutly with speech with some left ear ache. 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 it was epicentered along the right portion of the tip. Afterwards, he had loss of sensation to the tip of the tongue. He had been well up until September of this year when he began experiencing a sensation like a 'minoo horse' along the scar. This tends to worsen with speech. He expresses that it is a tight sensation. He has since seen two otolaryngologists, and speech pathologist with little to no improvement. He had a CT scan as well as rheumatologic labs which were negative. He feels that over the course of the day, it adversely effects his speech to the point that he becomes self-conscious about it. 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 He has also been experiencing increased stress in his life and isn't sure if this is related to his above symptoms. He does not that relaxation techniques do tend to help. He also admits that when he drinks alcohol, the sensation abates. He smokes the occasional cigar in the summer. ALLERGIES Allergen Reactions - Sulfa (Sulfonamide * Anaphylaxis No current outpatient prescriptions on file prior to visit. No current facility-administered medications on file prior to visit. No past medical history on file. PAST SURGICAL HISTORY Procedure Laterality Date - PAST SURGICAL HISTORY OF 1998 tongue Social History Marital status: Spouse name: Years of education: Number of children: Social History Main Topics Smoking status: Former Smoker Packs/day: 0.00 Years: 3.00 Types: Cigars Quit date: 09/2016 Smokeless status: Never Used Comment: once a month in the summer. Alcohol use: Yes 13.5 oz/week 9 Cans of Beer (12oz) per week Drug use: No Sexual activity: Yes Partners with: Female Review of Systems: GENERAL: No weight loss, malaise or fevers. RESPIRATORY: Negative for cough, hemoptysis, wheezing, COPD, dyspnea or shortness of breath CARDIOVASCULAR: Negative for chest pain, leg swelling, hypertension, CHF or palpitations NEURO: No history of headaches, syncope, paralysis, seizures or tremors The remainder of the review of systems is negative. PHYSICAL EXAM (detailed): Constitutional: * There were no vitals taken for this visit. * General appearance: Well developed, well nourished male without obvious deformities. Patient has a normal body habitus and is well groomed. * Communication: The patient speaks with a normal voice without hoarseness or breaks in speech. Head and Face: * Overall appearance: No evident asymetries, obvious scars, lesions or masses. Palpation of face did not reveal any sinus tenderness. * Parotid and submandibular glands: No masses, tenderness or swelling. * Facial strength: House-Brackmann 1/6 bilaterally. Eyes: * Extraocular movements are intact bilaterally and primary gaze alignment is normal. * No evidence of ectropion present. Ears, Nose, Mouth and Throat: * External ears and nose: Normal in appearance, without scars, lesions, or masses. * Ears: Otoscopic examination demonstrates external auditory canals are normal bilaterally. The tympanic membranes are intact and mobile to pneumotoscopy bilaterally. * Nasal exam: Nasal mucosa is pink and the septum is midline, visualized turbinates are normal in appearance. * Mastication: The teeth appear healthy, and the lips and gums are without lesions. * Oral cavity and oropharynx: Well healed small (2 mm) incision along the ventral surface of the right tongue tip - no lesions noted. The oral mucosa, hard and soft palates, tongue, tonsil area, and posterior pharyngeal mucosa are without lesions or notable assymetries. Moist mucus membranes present. * Larynx: Base of tongue, valleculae, epiglottis and false vocal folds are normal in appearance per mirror exam. Neck: * Neck: The neck appears symmetric without scars, and on palpation is without masses, lymphadenopathy or crepitus. Trachea is midline. * Thyroid: There are no masses, thyromegaly, thyroid nodules or tenderness on palpation. Neurologic: * Mental status: Patient is alert and oriented to person, place and time Mood and affect are appropriate MEDICAL DECISION MAKING: Tongue tightness secondary to previous scar - no pathology noted Anxiety Dysarthria Will refer to speech pathology No need for biopsy Ashly Sullivan MD Referring Provider: SELF [[id number]] Allergies As of Date: 05/05/2017 Noted Allergy Reaction SULFA (SULFONAMIDE ANTIBIOTICS) 12/23/2015 10 - Anaphylaxis Date Reviewed: 05/05/2017 Reviewed by: Bipin Leyva Ma - Fully Assessed Reason for Visit: New Patient [172] Cmt: Lump on the tongue for Six months with some difficutly with speech with some left ear ache. 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 Problem List As Of Date: 05/05/2017 (None) Visit Notes: >> Bipin Leyva Ma Fri May 05, 2017 9:46 AM Status: Signed Tobacco Use: for 3 years. Quit 09/27/2016. Types: Cigars (once a month in the summer. ) Was smoking cessation packet given? N/A - Patient is a non- smoker or quit >1 year ago. Was a referral initiated?N/A Patient is a non-smoker Disposition: Return in about 2 weeks (around 05/19/2017). Follow-up and Disposition History Recorded Encounter Status:Closed by ASHLY SULLIVAN MD on 05/10/17 URGENT CARE VISIT Observed: 04/20/2017 Status: F Source: [place] REPORT 12:21 PM [facility] [address] [place] [address] 6 [place] [address] OFFICE VISIT Date of Service: 04/20/17 MR#: [id number] Acct: [id number] Name: ISACC MATA Destin Rep #: [id number] : 1975 Provider: Herb BOWENS Age/Sex: 41/M [facility] Status: Signed Intake Vital Signs04/20/17 Height 5 ft 9 in 04/20/17 Weight: 196 lb 04/20/17 Body Mass Index (BMI) 28.9 Intake Visit Reasons: EARACHE Chief Complaint: Sinus pressure and left ear pain 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 Is patient in pain?: No Allergies Sulfa (Sulfonamide Antibiotics) Allergy (Verified 04/20/17 11:21) Anaphylaxis Medications multivitamin capsule 1 cap PO QAM 04/05/17 [History Confirmed 04/20/17] vitamin B complex capsule 1 cap PO QDAY 04/05/17 [History Confirmed 04/20/17] doxycycline hyclate 100 mg capsule 100 mg PO BID #20 cap 04/20/17 [Rx Confirmed 04/20/17] PFSH Family History Other Hypertension Social History Smoking Status: Never smoker alcohol intake: current alcohol intake frequency: a few times a week Alcohol type: beer HPI HPI Chief Complaint: Sinus pressure and left ear pain Details: ISACC MATA, is a 41 M who presents to the office today for 1 week history of progressively worsening left sinus pressure and left ear pain along with sweats and chills. No complaints of fever, cough, chest pain/shortness of breath. Patient is a non-smoker. Patient admits to being noncompliant with amoxicillin as previously prescribed. No other associated symptoms and no other alleviating or aggravating factors. ROS Const Constitutional: Positive for chills and fever(s); no excessive sweating, abnormal sleep pattern, night sweats or body ache Eyes Eyes: No change in vision ENT ENT: Positive for ear pressure, post nasal drip and sinus pressure; no abnormal hearing, ear pain, ear discharge or hearing loss Resp Respiratory: No cough or chest congestion Cardio Cardiology: No excessive sweating, chest pain at rest, chest pain with exertion, shortness of breath, dyspnea on exertion, irregular heart rhythm, generalized swelling or leg pain with exertion Gastro GI: No abdominal pain, change in stool character or change in bowel habits Musc Musculoskeletal: No joint pain, back pain or limited range of motion Skin Skin: No change in hair or sores Neuro Neurology: No abnormal hearing, abnormal speech or abnormal movements Psych Psychiatric: No abnormal sleep pattern Endo Endocrine: No excessive sweating, change in body appearance, cold intolerance or heat intolerance Aller/Imm Allergy/Immunologic: No food intolerance Luis Manuel/Lymp Hematologic/Lymphatic: No easy bruising Exam Const General: cooperative, healthy appearing, no acute distress, uncomfortable Nutritional Appearance: average body habitus Orientation: alert, awake, oriented x3 [facility] Head: normal to inspection Ears: hearing grossly normal bilaterally, external ears normal, EAC's normal, left TM abnormal (Erythematous and bulging), TM normal on the right Nose: external nose normal, nares normal, septum normal, no nasal discharge Face and sinus: face symmetric, normal facial exam, sinus tenderness maxillary (Left) Eyes General: appearance normal, both eyes and all related structures Neck Neck: normal visual inspection, full ROM, no meningeal signs, supple, lymphadenopathy Neck mass: No Thyroid: thyroid normal Lymphatic: no lymphadenopathy noted Chest Chest palpation AND inspection: normal inspection of the chest Resp Effort AND Inspection: normal respiratory effort, able to speak in complete sentences, symmetric chest movement, no cough Auscultation: Bilateral: Clear to Auscultation Cardio Palpation: normal PMI Rate: regular rate Rhythm: regular rhythm Heart Sounds: S1 normal, S2 normal, no gallops, no murmurs, no rubs Pulses: radial pulses present GI Inspection: normal to inspection Palpation: soft, no hepatosplenomegaly Skin General: no rashes or lesions noted Neuro General: alert, awake, oriented x3, gait normal Cognition: normal cognition Speech: speech normal Gait: normal gait Motor: muscle tone normal throughout Sensory Exam: no sensory deficits noted Extrem General: normal to inspection Psych Appearance: grossly normal Mental Status: mental status grossly normal Mood: congruent mood Affect: normal affect Speech and Movement: speech and movement normal Attitude: cooperative Thought Process: normal Thought Content: normal Judgment: judgment good Assessment AND Plan Problems 1. Otitis media H66.90 2. Sinusitis, acute maxillary J01.00 Plan Doxycycline as prescribed today. Clear fluids, rest, Advil/Tylenol, warm facial compresses as needed as instructed today. Follow-up with PCP in 3-5 days should symptoms not improved, sooner should symptoms worsen or any other concerns develop. Patient states knowledge understanding all the above. This note was generated with Kruxation software. It may contain incorrect words, spelling, and punctuation that were not noted in checking the note before signing. Medications New: Coding Level of Care Code Off vis,est,level 4 Diagnoses Otitis media H66.90 Sinusitis, acute maxillary J01.00 04/20/17 1221 <Electronically signed by Herb BOWENS> Date Herb BOWENS Cosigner Signature: Date (if applicable) CC: URGENT CARE VISIT Observed: 04/05/2017 Status: F Source: [place] REPORT 3:23 PM [facility] [address] [place] [address] 6 [place] [address] OFFICE VISIT Date of Service: 04/05/17 MR#: [id number] Acct: [id number] Name: ISACC MATA Rep #: [id number] : 1975 Provider: Hebr BOWENS Age/Sex: 41/M Location: [facility] Status: Signed Intake Vital Signs04/05/17 Height 5 ft 9.5 in Intake Visit Reasons: SINUS INFECTION Chief Complaint: Sinus pressure Allergies Sulfa (Sulfonamide Antibiotics) Allergy (Verified 04/05/17 15:17) Anaphylaxis Medications amoxicillin 500 mg capsule 1,000 mg PO BID 10 Days #40 cap 04/05/17 [Rx] multivitamin capsule 1 cap PO QAM 04/05/17 [History Confirmed 04/05/17] vitamin B complex capsule 1 cap PO QDAY 04/05/17 [History Confirmed 04/05/17] PFSH Family History Other Hypertension Social History Smoking Status: Never smoker alcohol intake: current alcohol intake frequency: a few times a week Alcohol type: beer HPI HPI Chief Complaint: Sinus pressure Details: ISACC MATA, is a 41 M who presents to the office today for initial evaluation 5 day history of progressively worsening sinus pressure, postnasal drip, and new onset chills/ sweats beginning last evening. Patient notes no complaints of fever, rash or chest pain/shortness of breath. Patient is a non-smoker. Patient notes no prior history of similar signs or symptoms. He notes no other complaints at this time and no alleviating or aggravating factors. ROS Const Constitutional: Positive for chills and night sweats; no excessive sweating, abnormal sleep pattern, fever(s) or body ache Eyes Eyes: No change in vision ENT ENT: Positive for ear pain, post nasal drip and sinus pressure; no abnormal hearing, ear discharge, ear pressure or hearing loss Resp Respiratory: No cough or chest congestion Cardio Cardiology: No excessive sweating, chest pain at rest, chest pain with exertion, shortness of breath, dyspnea on exertion, irregular heart rhythm, generalized swelling or leg pain with exertion Gastro GI: No abdominal pain, change in stool character or change in bowel habits Musc Musculoskeletal: No joint pain, back pain or limited range of motion Skin Skin: No change in hair, sores or rash Neuro Neurology: No abnormal hearing, abnormal speech or abnormal movements Psych Psychiatric: No abnormal sleep pattern Endo Endocrine: No excessive sweating, change in body appearance, cold intolerance or heat intolerance Aller/Imm Allergy/Immunologic: No food intolerance Luis Manuel/Lymp Hematologic/Lymphatic: No easy bruising Exam Const General: cooperative (Though warm to touch), healthy appearing, no acute distress, uncomfortable Nutritional Appearance: average body habitus Orientation: alert, awake, oriented x3 HEN[facility] Head: normal to inspection Ears: hearing grossly normal bilaterally, external ears normal, TM's normal bilaterally, EAC's normal Nose: external nose normal, nares normal, septum normal, no nasal discharge Face and sinus: normal facial exam, sinus tenderness maxillary, face symmetric Mouth: oral mucosae normal, lip normal, oropharynx normal, tongue normal Teeth and gingiva: dentition normal, gingiva normal Throat: posterior oropharynx normal, uvula midline, postnasal drainage (Purulent) Eyes General: appearance normal, both eyes and all related structures Neck Neck: normal visual inspection, full ROM, no meningeal signs, supple, lymphadenopathy (Bilateral anterior cervical node swelling and tenderness to palpation) Neck mass: No Thyroid: thyroid normal Lymphatic: no lymphadenopathy noted Chest Chest palpation AND inspection: normal inspection of the chest Resp Effort AND Inspection: normal respiratory effort, able to speak in complete sentences, symmetric chest movement, no cough Auscultation: Bilateral: Clear to Auscultation Cardio Palpation: normal PMI Rate: regular rate Rhythm: regular rhythm Heart Sounds: S1 normal, S2 normal, no gallops, no murmurs, no rubs Pulses: radial pulses present GI Inspection: normal to inspection Palpation: soft, no hepatosplenomegaly Skin General: no rashes or lesions noted Neuro General: alert, awake, oriented x3, gait normal Cognition: normal cognition Speech: speech normal Gait: normal gait Motor: muscle tone normal throughout Sensory Exam: no sensory deficits noted Extrem General: normal to inspection Psych Appearance: grossly normal Mental Status: mental status grossly normal Mood: congruent mood Affect: normal affect Speech and Movement: speech and movement normal Attitude: cooperative Thought Process: normal Thought Content: normal Judgment: judgment good Assessment AND Plan Problems 1. Sinusitis, acute maxillary J01.00 Plan Amoxicillin as prescribed day. Clear fluids, rest, Advil/Tylenol, warm facial compresses as needed as instructed today. Follow-up with PCP in 3-5 days should symptoms not improved, sooner should symptoms worsen or other concerns develop. Patient states acknowledging understanding all the above. This note was generated with Kruxation software. It may contain incorrect words, spelling, and punctuation that were not noted in checking the note before signing. Medications New: Discontinued: Coding Level of Care Code Off vis,new,level 4 Diagnoses Sinusitis, acute maxillary J01.00 04/05/17 1523 <Electronically signed by Herb BOWENS> Date Herb BOWENS Cosigner Signature: Date (if applicable) CC: SINUS/FACIAL BONE WITH Observed: 03/24/2017 Status: F Source: ELI CONTRAS 4:08 PM [facility] [place] [facility] Imaging Services [facility] [place] [address] Sinus/Facial Bone WITH Contras MR#: [id number] Acct: [id number] Name: ISACC MATA Rep #: [id number] : 1975 M 41 From: Alma Vora PCP: Nathan Yung Status: REG CLI Study: Sinus/Facial Bone WITH Contras Date of Exam: 03/24/17 Exam# [id number] Ordering Dr: Ashly Beckman MD STUDY: CT PARANASAL SINUSES WITH CONTRAST REASON FOR EXAM: Male, 41 years old. GLOSSODYNIA. LUMP ON TIP OF TONGUE. ATTN. 7TH CRANIO FACIAL NERVE. RADIATION DOSAGE (If Supplied By Facility): CTDIvol = ( 29.38 ) mGy, DLP = ( 664.99 ) mGycm TECHNIQUE: The patient was scanned in a multi-detector CT scanner. High resolution transaxial imaging was performed following the intravenous administration of 100ML ml of Isovue 300 contrast material. Sagittal and coronal images were reconstructed. Individualized dose optimization techniques were used for this CT. COMPARISON: None. FINDINGS: FRONTAL SINUSES: There is atresia of the frontal sinus ETHMOIDAL SINUSES: Normal development and aeration of the bilateral ethmoidal air cells without mucosal inflammatory disease. MAXILLARY SINUSES: There is moderate mucosal thickening of the right maxillary sinus. There is minimal mucosal thickening of the left maxillary sinus. SPHENOIDAL SINUSES: Normal aeration of the bilateral sphenoid sinuses and there is no mucosal inflammatory disease. OMU: There is lateralized bilateral uncinate processes with obstruction of the infundibula. MIDDLE TURBINATES: Normal bilateral middle turbinates without a warren bullosa or paradoxical curvature. INFERIOR TURBINATES: Normal bilateral inferior turbinates. NASAL SEPTUM: There is some mild deviation of the nasal septum to the right. Normal anterior cranial fossa, [place] and cribriform plate. Normal bilateral orbital contents. Normal nasopharynx without adenoidal pad hypertrophy, or a posterior nasopharyngeal retention cyst. There is no demonstrated enhancing soft tissue or osseous abnormality. CT/Sinus/Facial Bone WITH Contras IMPRESSION: Moderate chronic paranasal sinus disease. No masses or lymphadenopathy. Electronically Signed: Alma Vora MD at 15:31 EST Tel , Service support , CC: Ashly Beckman MD; Nathan Yung Operations General Agent: Signed THYROID STIM HORMONE Collected: 03/20/2017 Status: F Source: ELI (TSH) 10:52 AM [facility] REPOSITORY TYPE CODE TESTS RESULT OUT OF RANGE REFERENCE UNITS LAB L501.9520 0.358-3.74 uIU/mL Normal TSH 1.99 Performed By: #### L501.9520, L505.7010 #### [facility] [address], [address] RHEUMATOID FACTOR Collected: 03/20/2017 Status: F Source: HENSLEY 10:52 AM [facility] [place] TYPE CODE TESTS RESULT OUT OF RANGE REFERENCE UNITS LAB L505.7010 <15 IU/mL Normal RHEUMATOID FAC < 10.0 Performed By: #### L501.9520, L505.7010 #### [facility] [address] [place], [address] CBC W/DIFF, AUTOMATED Collected: 03/20/2017 Status: F Source: HENSLEY 10:52 AM [facility] [place] TYPE CODE TESTS RESULT OUT OF RANGE REFERENCE UNITS LAB L100.1000 4.4-11.0 K/mm3 Normal WBC 6.4 LAB L100.1200 4.6-6.2 M/mm3 Normal RBC 4.60 LAB L100.1300 13.0-16.5 g/dl Normal HGB 14.0 LAB L100.1400 40-54 % Normal HCT 42.0 LAB L100.1500 80-94 fL Normal MCV 91.3 LAB L100.1600 27.0-32.0 pg Normal MCH 30.4 LAB L100.1700 32-36 g/gl Normal MCHC 33.3 LAB L100.1810 11.6-14.6 % Normal RDW CV 12.4 LAB L100.1820 35.1-43.9 fl Normal RDW SD 40.8 LAB L100.1900 150-450 K/mm3 Normal PLT 231 LAB L100.2000 6.2-12.0 fl Normal MPV 10.9 LAB L100.2100 47-70 % High NEUT% 77.8 LAB L100.2200 19-41 % Low LY% 13.2 LAB L100.2300 0-10 % Normal MONO% 7.0 LAB L100.2400 0-5 % Normal EO% 1.6 LAB L100.2500 0-1 % Normal BASO% 0.2 LAB L100.2550 0.0-0.9 % Normal IM GRAN % 0.200 Result Comment: IG% - Immature Granulocytes (promyelocytes, myelocytes and metamyelocytes) > 1% indicates that a LEFT SHIFT is Present. LAB L100.2620 2.0-7.7 X10 3/uL Normal Absolute Neut 5.0 LAB L100.2720 0.83-4.51 X10 3/ul Normal Absolute Lymph 0.85 Performed By: #### L100.0100, L101.9900 #### [facility] [address] [place], [place], [address] ERYTHROCYTE SED RATE Collected: 03/20/2017 Status: F Source: ELI 10:52 AM [facility] [place] TYPE CODE TESTS RESULT OUT OF RANGE REFERENCE UNITS LAB L102.0000 0-15 mm/hr Normal SED RATE 5 Performed By: #### L100.0100, L101.9900 #### [facility] [address]. [place], [place], [address] ANTINUCLEAR ANTIBODIES Collected: 03/20/2017 Status: F Source: ELI DIRECT 10:52 AM [facility] [place] TYPE CODE TESTS RESULT OUT OF RANGE REFERENCE UNITS LAB L3100.5475 Negative Normal Negative JOHN-DIRECT Result Comment: Performed at: - [facility] [id number] Hadoop Java Developer: Carlos Akers PhD, Phone: [phone] Performed By: #### L3100.5475, L3100.9100 #### [facility] (refer to report for specific site) refer to report for address and phone number SJOGREN'S ANTIBODIES Collected: 03/20/2017 Status: F Source: ELI A/B 10:52 AM [facility] [place] TYPE CODE TESTS RESULT OUT OF RANGE REFERENCE UNITS LAB L3100.9200 0.0-0.9 AI Normal Anti-SS-A < 0.2 LAB L3100.9300 0.0-0.9 AI Normal Anti-SS-B < 0.2 Performed By: #### L3100.5475, L3100.9100 #### [facility] (refer to report for specific site) refer to report for address and phone number ANGIOTENSIN CONVERT Collected: 03/20/2017 Status: F Source: ELI ENZYME 10:52 AM [facility] [place] TYPE CODE TESTS RESULT OUT OF RANGE REFERENCE UNITS LAB L3100.6900 14-82 U/L Normal JOY [id number] Result Comment: Performed at: [facility] [id number] Hadoop Java Developer: Carlos Akers PhD, Phone: [phone] Performed By: #### L3100.6900, L3300.1200 #### [facility] (refer to report for specific site) refer to report for address and phone number ANCA Collected: 03/20/2017 Status: F Source: ELI 10:52 AM [facility] [place] TYPE CODE TESTS RESULT OUT OF RANGE REFERENCE UNITS LAB L3300.1225 Neg:<1:20 titer CYTOPLASMIC Normal Ab <1:20 LAB L3300.1250 Neg:<1:20 titer PERINUCLEAR Normal Ab <1:20 Result Comment: The presence of positive fluorescence exhibiting P-ANCA or C-ANCA patterns alone is not specific for the diagnosis of Ti's Granulomatosis (WG) or microscopic polyangiitis. Decisions about treatment should not be based solely on ANCA IFA results. The International ANCA Group Consensus recommends follow up testing of positive sera with both NJ- 3 and MPO-ANCA enzyme immunoassays. As many as 5% serum samples are positive only by EIA. Ref. AM J Clin Pathol 1999;111:507-513. LAB L3300.1285 Neg:<1:20 titer Normal Atypical pANCA <1:20 Result Comment: The atypical pANCA pattern has been observed in a significant percentage of patients with ulcerative colitis, primary sclerosing cholangitis and autoimmune hepatitis. Performed By: #### L3100.6900, L3300.1200 #### [facility] (refer to report for specific site) refer to report for address and phone number ADULT EVALUATION - SP Observed: 03/08/2017 Status: F Source: ELI 1:59 PM [facility] [place] [facility] Speech Pathology 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 A second surgery was needed to continue resection as not all tumor was removed first surgery. He has baseline numbness in front left tip of tongue. No dysphagia reported. 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 Left tongue tip is numb and has been since previous surgeries. No articulation deficits noted or weakness noted. Objective Oral Motor - Oral Status Dentition: WNL - Labial Impairment: WNL Closure: WNL Pucker: WNL Retraction: WNL Alternating Pucker/Retraction: WNL Involuntary Movement noted: No - Lingual Impairment: WNL Protrusion: WNL Retraction: WNL Lateralization: WNL Involuntary Movement: No - Lingual Comments Comments: Noted patient has mild area of missing tongue on front left section from tumor resectino 20 years ago. Scar was observed on underside of tongue. Normal frenulum. Patient reports that his tongue will hurt and get tight feeling after talking for a while. Also Patient reported pain on tongue ranging from no pain to 5/10 pain. No pain medications taken for it. He feels like his tongue is swollen but it is not observed to be swollen. He has a small bump on middle of front underside that he reports is painful. He stated when he speaks more then it hurts more. It scrapes against his front teeth when speaking therefore increases irritation the more he speaks. He reported that moving his tongue in stretching manner helps aleviate pain. - Jaw Impairment: WNL - Respiratory Status Respiratory Status: Room Air Plan - Plan Plan: Speech therapy is recommended to follow this patient to determine if home program is effective for pain reduction and decreased feelings of swelling/thickeness in tongue. Decreased pain is a goal for this patient as he stated that pain is interfering with his daily living including home life and occupation in sales. - Recommendations MBS: No Treatment Warranted: Yes - Frequency Frequency: Monthly Duration: 4-6 Months - Prognosis Prognosis: Good - Goals that are Established: Determination:: Goals will be added/modified as deemed necessary and appropriate. Therapy will be discontinued when results of re-evaluation indicate therapy is no longer needed or lack of progress has been documented. - Goal #1-5 Goal #1: Patient will complete lingual stretching exercises independently and reported 2-3x times per day. Goal #2: Patient will report pain level as no more than 3/ 10 in the last month. Education - Patient has Indicated that the Following Identified Educational Needs: None The Patient has indicated that they have no educational or learning abilities that may effect their care.: Yes - Patient Instruction Patient Education: Diagnosis, Treatment Plan, Home Exercise Program Person Taught: Patient Teaching Method: Discussion Response to teaching: Verbalize understanding <Electronically signed by Thierno Hou M.A., [facility]> 03/08/17 1359 CC: Nathan Yung AUDI Signed For Medicare only, by signing this I certify the plan of care. Physicians Signature Date ALLERGIES ALLERGIES DATE TYPE / CODE NAME / CODE REACTION SEVERITY SOURCE 01/11/2018 Drug Sulfa Anaphylaxis Unknown [facility] Allergy/416 ([facility] 712325(SNOM Antibiotics) Repository ED CT) /[id number]( RXNORM) 12/23/2015 Drug SULFA ANAPHYLAXIS High [facility] Repository CT) ENCOUNTERS ENCOUNTERS ADMIT/DISCHARGE ACCOUNT ADMITTING ENCOUNTER LOCATION SOURCE NUMBER CLASS 02/12/2018/02/14/20 [id number] Ambulatory [address] Repository 02/06/2018 [id number] Ambulatory [facility] ing:CT Repository 02/05/2018/02/07/20 [id number] Ambulatory [address] Repository 02/02/2018 [id number] Ambulatory [facility] ing:MASS Repository 01/25/2018 [id number] Ambulatory [facility] ing:LAB.FUTUR Repository E 01/22/2018 [id number] Ambulatory [facility] ing:MRI Repository 01/22/2018/01/24/20 [id number] Ambulatory [address] Repository 01/15/2018/01/17/20 [id number] Ambulatory [address] Repository 01/15/2018 [id number] Ambulatory [facility] ing:MTLAB Repository 01/08/2018/01/10/20 [id number] Ambulatory [address] Repository 12/27/2017/12/29/19 [id number] Ambulatory [address] Repository 12/25/2017/12/27/19 [id number] Ambulatory [address] [place] Repository 12/18/2017/12/20/19 [id number] Ambulatory [address] Repository 11/29/2017 [id number] [facility] ing:MFPLAB Repository 11/29/2017 [id number] [facility] ing:LAB.FUTUR Repository E 11/20/2017/12/05/19 [id number] Ambulatory [address] Repository 10/18/2017 [id number] Ambulatory [facility] ing:RAD Repository 10/04/2017/10/05/19 [id number] Ambulatory BMSBuilding:W Eli [address] [place] [address] Repository 10/03/2017/10/05/19 [id number] Ashly Paez [address] ing:PCURoom: Repository [id number]: 1 10/03/2017 [id number] Ashly Paez Ambulatory BMSBuilding:B Eli [place] Repository 10/03/2017/08/08 [id number] Ambulatory BMSBuilding:W [place] [address] [facility] Repository 10/03/2017 [id number] Ambulatory BMSBuilding:B [place] Repository 07/21/2017/07/22/19 [id number] Ambulatory [address] ing:SDCRoom: Repository AC07 06/01/2017 [id number] Ambulatory [facility] ing:MFPLAB Repository 05/18/2017/05/19/19 [id number] Ambulatory [address] Repository 05/05/2017/05/06/19 [id number] Ambulatory [address] Repository 04/20/2017/04/20/19 [id number] Ambulatory BMSBuilding:B [place] 18 [place] Repository 04/05/2017/04/05/19 [id number] Ambulatory BMSBuilding:B [place] 18 [place] Repository 03/24/2017 [id number] Ambulatory [facility] ing:CT Repository 03/20/2017 [id number] Ambulatory [facility] ing:MTLAB Repository 03/06/2017/03/06/19 [id number] Ambulatory [address] ing:SP Repository PAYERS PAYERS ENCOUNTER GUARANTOR PAYER SUBSCRIBER SOURCE 02/06/2018 ISACC B Primary ISACC B Eli [id number] Insurance:Komal MTZ: [facility] [place]: [id number] [id number] Repository [address]Lac: 630) Date:6059-11-38[phone] () 686302DHEZUNBPLXO, [place] [address]ND: 02/06/2018 Secondary NOT GIVENUNK [place] Insurance:SELF PAY [facility] Number: Effective Repository Date:2018-01-30 02/02/2018 ISACC B Primary NOT GIVENUNK Eli [id number] Insurance:SELF PAY [place] Number: Effective Repository [address]Mah: (630) Date:2016-12-23 [phone] () 01/25/2018 ISACC B Primary ISACC B Eli [id number] Insurance:CIGNAPolicy SHUMAKERDOB: [facility] Number: [id number] [id number] Repository [address]Qfh: (013) Date:6146-29-80RT [phone] () 593731FWTSDGTTANP, [place] [address]RQ: 01/25/2018 Secondary NOT GIVENUNK Eli Insurance:SELF PAY [facility] Number: Effective Repository Date:2018-01-25 01/22/2018 ISACC B Primary ISACC B [place] [id number] Insurance:CIGNAPolicy SHUMAKERDOB: [facility] Number: [id number] [id number] Repository [address]Bot: [phone]) Date:4662-16-29AL [phone] () 4609[address]KVNCTIZBFCU, [place] [address]JN: 01/22/2018 Secondary NOT GIVENUNK [place] Insurance:SELF PAY [facility] Number: Effective Repository Date:2017-12-27 01/15/2018 ISACC Primary ISACC [place] [id number] Insurance:CIGNAPolicy SHUMAKERDOB: [facility] Number: [id number] [id number] Repository [address]Bvf: ([phone]) Date:8189-95-12GR [phone] () 051564TNIKNTGOTXU, [place] [address]DF: 01/15/2018 Secondary NOT GIVENUNK [place] Insurance:SELF PAY [facility] Number: Effective Repository Date:2018-01-15 11/29/2017 ANA PAULA Primary ANA PAULA [place] [id number] Insurance:CIGNAPolicy SHUMAKERDOB: [facility] Number: [id number], [place] [id number] Repository [address]Qex: ([phone]) Date:1038-13-85PP [phone] () 599844KXLCSONOPQG, [place] [address]BW: 11/29/2017 Secondary NOT GIVENUNK Eli Insurance:SELF PAY [facility] Number: Effective Repository Date:2017-11-29 11/29/2017 Primary NOT GIVENUNK Eli Insurance:SELF PAY [facility] Number: Effective Repository Date:2017-11-29 10/18/2017 ISACC B Primary ISACC B [place] [id number] Insurance:CIGNAPolicy SHUMAKERDOB: [facility] Number: [id number], [place] [id number] Repository [address]Hha: (097) Date:6146-34-55JN [phone] () 636222YKHQIOEUEFJ, [place] [address]OM: 10/18/2017 Secondary NOT GIVENUNK [place] Insurance:SELF PAY [facility] Number: Effective Repository Date:2017-10-13 10/04/2017 ISACC B Primary ISACC B [place] [id number] Insurance:CIGNAPolicy SHUMAKERDOB: [facility] Number: [id number], [place] [id number] Repository [address]Wxs: (133) Date:2550-14-08PE [phone] () 189476ZFEYBWNZHAT, [place] [address]PU: 10/04/2017 Secondary NOT GIVENUNK [place] Insurance:SELF PAY [facility] Number: Effective Repository Date:2017-10-04 10/03/2017 ANA PAULA Primary ANA PAULA [place] [id number] Insurance:CIGNAPolicy SHUMAKERDOB: [facility] Number: [id number], [place] [id number] Repository [address]Lmk: (851) Date:7286-83-22OZ [phone] () 808250EUXWCNYIIZJ, [place] [address]QH: 10/03/2017 Secondary NOT GIVENUNK [place] Insurance:SELF PAY [facility] Number: Effective Repository Date:2017-10-03 10/03/2017 ISACC B Primary ISACC B [place] [id number] Insurance:CIGNAPolicy SHUMAKERDOB: [facility] Number: [id number], [place] [id number] Repository 687[address]Rps: (864) Date:0283-11-55PK [phone] () 495983TNROBFLPWJU, [place] [address]MQ: 10/03/2017 Secondary NOT GIVENUNK Eli Insurance:SELF PAY [facility] Number: Effective Repository Date:2017-10-03 10/03/2017 ISACC B Primary ISACC B Eli [id number] Insurance:CIGNAPolicy SHUMAKERDOB: [facility] Number: [id number], [place] [id number] Repository [address]Ngy: (448) Date:2187-30-89TO [phone] () 668788CYOJEGEONVE, [place] [address]QQ: 10/03/2017 Secondary NOT GIVENUNK Eli Insurance:SELF PAY [facility] Number: Effective Repository Date:2017-10-03 10/03/2017 ISACC B Primary ISACC B Eli [id number] Insurance:CIGNAPolicy SHUMAKERDOB: [facility] Number: [id number], [place] [id number] Repository [address]Xrx: ([phone]) Date:4204-53-68GB [phone] () 860689VSKZEJAOBXN, [place] [address]CR: 10/03/2017 Secondary NOT GIVENUNK [place] Insurance:SELF PAY [facility] Number: Effective Repository Date:2017-10-03 07/21/2017 ISACC B Primary ISACC B Eli [id number] Insurance:CIGNAPolicy SHUMAKERDOB: [facility] Number: [id number], [place] [id number] Repository [address]Tho: ([phone]) Date:9440-04-37QZ [phone] () 335865SAZKRRDYJBO, [place] [address]FL: 07/21/2017 Secondary NOT GIVENUNK [place] Insurance:SELF PAY [facility] Number: Effective Repository Date:2017-07-04 06/01/2017 ISACC B Primary ISACC B Eli [id number] Insurance:CIGNAPolicy SHUMAKERDOB: [facility] Number: [id number], [place] [id number] Repository [address]Ycs: (035) Date:3067-77-71IB [phone] () 781699LLMXFMPHUUG, [place] [address]YZ: 06/01/2017 Secondary NOT GIVENUNK Eli Insurance:SELF PAY [facility] Number: Effective Repository Date:2017-06-01 04/20/2017 ISACC B Primary ISACC B Eli [id number] Insurance:CIGNAPolicy SHUMAKERDOB: [facility] Number: [id number], [place] [id number] Repository [address]Ojk: (526) Date:6248-42-54KW [phone] () BOONE THOMSON [address]HS: 04/20/2017 Secondary NOT GIVENUNK Eli Insurance:SELF PAY [facility] Number: Effective Repository Date:2017-04-20 04/05/2017 ISACC B Primary ISACC B Eli [id number] Insurance:CIGNAPolicy SHUMAKERDOB: [facility] Number: [id number], [place] [id number] Repository [address]Zxj: (965) Date:5456-06-80SQ [phone] () BOONE THOMSON [address]ZK: 04/05/2017 Secondary NOT GIVENUNK [place] Insurance:SELF PAY [facility] Number: Effective Repository Date:2017-04-05 03/24/2017 ISACC B Primary ISACC B Eli [id number] Insurance:CIGNAPolicy SHUMAKERDOB: [facility] Number: [id number], [place] [id number] Repository [address]Qvq: ([phone]) Date:3260-26-82KJ [phone] () 583253BTFEYWFDMCB, [place] [address]DO: 03/24/2017 Secondary NOT GIVENUNK Eli Insurance:SELF PAY [facility] Number: Effective Repository Date:2017-03-23 03/20/2017 ISACC B Primary ISACC B [place] [id number] Insurance:CIGNAPolicy SHUMAKERDOB: [facility] Number: [id number], [place] [id number] Repository [address]Kca: (088) Date:0312-77-42SW [phone] () 656785WZNNPDSSXET, [place] [address]HH: 03/20/2017 Secondary NOT GIVENUNK Lei Insurance:SELF PAY [facility] Number: Effective Repository Date:2017-03-20 03/06/2017 ISACC B Primary ISACC B Eli [id number] Insurance:CIGNAPolicy SHUMAKERDOB: [facility] Number: [id number], [place] [id number] Repository [address]Uzp: (669) Date:9810-33-63KH [phone] () 917081KYPKJNBHYHG, [place] [address]XW: 03/06/2017 Secondary Darlene Eli Insurance:ANTHEMPolic ShumakerDOB: [facility] Number: [id number] [id number] Repository Date:4196-49-33YC [address]VCJVMIR, [place] [address]VF: 03/06/2017 Tertiary NOT GIVENUNK [place] Insurance:SELF PAY [facility] Number: Effective Repository Date:2017-03-01
== END ==
PROVIDERS: Family Provider Family Medicine; PCP Family Medicine
DX: G50.1 Atypical facial pain (principal); R20.0 Anesthesia of skin
CPT/HCPCS: 70553; A9585

== ENCOUNTER → 2018-02-06 07:00 | Outpatient (CLI) | payer OTHER, SELFPAY ==
[2018-01-15 07:10] VITALS: BMI 28.5
--- NOTE | 2018-02-06 07:03 | CT_ITS ---
STUDY: CT SOFT TISSUE NECK WITH CONTRAST REASON FOR EXAM: Male, 42 years old. Painful lump at the tip of the thumb. RADIATION DOSAGE (If Supplied By Facility): CTDIvol = ( 20.06 ) mGy, DLP = ( 560.99 ) mGycm TECHNIQUE: The patient was scanned in a multi-detector CT scanner. High resolution transaxial imaging was performed following intravenous administration of 75CC ml of Isovue 300 contrast material. Sagittal and coronal images were reconstructed. Individualized dose optimization techniques were used for this CT. COMPARISON: None. FINDINGS: Normal bilateral parotid glands. Normal bilateral physical director spaces. Normal bilateral parapharyngeal spaces. Normal bilateral carotid spaces. Normal bilateral sublingual and submandibular glands and spaces. Normal visualized nasopharynx. Normal retropharyngeal space. Normal perivertebral space. Normal visualized bilateral faucial tonsils. The visualized tongue, tongue base and oropharynx are normal. There are minimally enlarged lymph nodes of the neck, with preservation of normal jason architecture, consistent with a reactive lymph hyperplasia. There is no demonstrated solid or cystic mass lesion. There is no abnormal contrast enhancement. Normal epiglottis, bilateral vallecula and hypopharynx. The pre-epiglottic and paraglottic adipose spaces are normal. Normal visualized bilateral piriform sinuses, aryepiglottic folds, vocal cords, and arytenoid-cricoid articulations. Normal subglottic trachea. Normal bilateral lobes of the thyroid gland. Normal visualized pulmonary apices. Normal visualized paranasal sinuses. There is degenerative changes of the cervical spine. Straightening of the normal cervical lordosis. CT/Soft Tissue Neck WITH Contrast IMPRESSION: No significant abnormality is seen. Electronically Signed: Beau Franco MD at 14:34 EST Tel [phone], Service support ,
--- OUTSIDE RECORDS SUMMARY | 2018-03-25 05:28 | XMS RPT_ITS ---
:1975 Author Organization OHIP Support Name Relationship Address Phone [employer] Unavailable [id number] + [place] [address] ADOLFO, VERÓNICA Unavailable [address] + [place] [address] Adolfo, Verónica Unavailable Unavailable + [employer] Unavailable [address] + [place] [address] ADOLFO, VERÓNICA Unavailable [address] + [place] [address] [employer] Unavailable [address] + [facility] [address] ADOLFO, VERÓNICA Unavailable [address] + [place] [address] [employer] Unavailable [address] + [place] [address] ADOLFO, VERÓNICA Unavailable [address] + [place] [address] [employer] Unavailable [phone] + [facility] [place] [address] ADOLFO, VERÓNICA Unavailable [address] + [place] [address] [employer] Unavailable [address] + [place] [address] ADOLFO, VERÓNICA Unavailable [address] + [place] [address] [employer] Unavailable [address] + [place] [address] ADOLFO, VERÓNICA Unavailable [address] + [place] [address] [employer] Unavailable [address] + [place] [address] ADOLFO, VERÓNICA Unavailable [address] + [place] [address] [employer] Unavailable [address] + [place] [address] ADOLFO, VERÓNICA Unavailable [address] + [place] [address] [employer] Unavailable [address] + [place] [address] ADOLFO, VERÓNICA Unavailable [address] + [place] [address] [employer] Unavailable [address] + [place] [address] ADOLFO, VERÓNICA Unavailable [address] + [place] [address] [employer] Unavailable [address] + [place] [address] ADOLFO, VERÓNICA Unavailable [address] + [place] [address] [employer] Unavailable [address] + [place] [address] ADOLFO, VERÓNICA Unavailable [address] + [place] [address] [employer] Unavailable [address] + [place] [address] ADOLFO, VERÓNICA Unavailable [address] + [place] [address] [employer] Unavailable [address] + [place] [address] ADOLFO, VERÓNICA Unavailable [address] + [place] [address] [employer] Unavailable [address] + [place] [address] ADOLFO, VERÓNICA Unavailable [address] + [place] [address] [employer] Unavailable [address] + [place] [address] ADOLFO, VERÓNICA Unavailable [address] + [place] [address] [employer] Unavailable [address] + [place] [address] ADOLFO, VERÓNICA Unavailable [address] + [place] [address] Care Team Providers Name Role Phone ASHLY SULLIVAN Attending Unavailable JUDITH, ASHLY Referring Unavailable ROOFENER, BISI [...] BISI Attending Unavailable ROOFENER, BISI Referring Unavailable Fabby Muir Attending Unavailable Milligan, Ashly Referring Unavailable Milligan, Ashly Primary Care Unavailable Joppbuck, Ashly Attending Unavailable Dilshad, Nathan Primary Care Unavailable Milliagn, Ashly Attending Unavailable Milligan, Ashly Referring Unavailable Milligan, Ashly Primary Care Unavailable Beckman, Ashly Attending Unavailable Beckman, Ashly Referring Unavailable Dilshad, Nathan Primary Care Unavailable DOCTOR, OUT OF TOWN Attending Unavailable Dilshad, Nathan Primary Care Unavailable Dilshad, Nathan Primary Care Unavailable Joppbuck, Ashly Admitting Unavailable Aaron Henry Attending Unavailable Milligan, Ashly Attending Unavailable Milligan, Ashly Primary Care Unavailable Herb Khan Attending Unavailable Dilshad, Nathan Referring Unavailable Dilshad, Nathan Primary Care Unavailable Herb Khan Attending Unavailable Dilshad, Nathan Referring Unavailable Dilshad, Natahn Primary Care Unavailable Beckman, Ashly Attending Unavailable Dilshad, Nathan Primary Care Unavailable Milligan, Ashly Attending Unavailable Milligan, Ashly Primary Care Unavailable Milligan, Ashly Attending Unavailable Mundo Magaña Attending Unavailable Jopperi, Ashly Referring Unavailable Milligan, Ashly Attending Unavailable Milligan, Ashly Referring Unavailable Milligan, Ashly Primary Care Unavailable Nathan Yung Attending Unavailable Dilshad, Nathan Primary Care Unavailable Nathan Yung Referring Unavailable HARSHIL BATES Attending Unavailable HARSHIL BATES Referring Unavailable Milligan, Ashly Primary Care Unavailable ELENA NULL Attending Unavailable ELENA NULL Referring Unavailable Milligan, Ashly Primary Care Unavailable ELENA NULL Consulting Unavailable Milligan, Ashly Attending Unavailable Milligan, Ashly Primary Care Unavailable Fabian Membreno Attending Unavailable Ashelfah, Ghasem Referring Unavailable Ashly Paez Admitting Unavailable Ashelfah, Ghasem Attending Unavailable Dilshad, Nathan Primary Care Unavailable Ashelfah, Ghasem Consulting Unavailable PROBLEMS PROBLEMS DATE TYPE CONDITION / CODE ATTENDING STATUS SOURCE Admitting Localized enlarged Muir [facility] 8 Diagnosis lymph nodes / System R59.0(ICD-10) Repository Admitting Other lesions of oral Muir, [facility] Diagnosis mucosa / System K13.79(ICD-10) Repository Admitting Osteophyte, vertebrae Muir, [facility] Diagnosis / M25.78(ICD-10) System Repository Admitting Localized swelling, Muir, [facility] 8 Diagnosis mass and lump, System unspecified / Repository R22.9(ICD-10) Unknown Z20.828 - Contact with Ashly Milligan Active [place] [facility] and (suspected) Community exposure to other Hospital viral communicable Repository diseases / Z20.828(ICD-10) Unknown G50.1 - Atypical ELENA NULL Active [place] [facility] facial pain / Community G50.1(ICD-10) Hospital Repository Unknown 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 / Community G52.3(ICD-10) Hospital Repository Unknown R07.9 - Chest pain, Ashelfeddie, Active [place] unspecified / Ghasem Community R07.9(ICD-10) Hospital Repository Unknown R94.31 - Abnormal Moodispaw, Active [place] 8 electrocardiogram [facility] [ECG] [EKG] / Hospital R94.31(ICD-10) Repository Unknown 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, 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 / Hospital D37.02(ICD-10) Repository Unknown K12.1 - Other forms of Milligan, Ashly Active [place] [facility] stomatitis / Community K12.1(ICD-10) Hospital Repository Unknown K14.6 - Glossodynia / Beckman, Ashly Active [place] 8 K14.6(ICD-10) Community Hospital Repository Unknown 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 TECHNIQUE: MR imaging of the neck was obtained with and without intravenous gadolinium contrast (19 mL MultiHance) FINDINGS: Fat planes about the genioglossus and hyoglossus are intact. No visualized enhancing mass along the tongue. Nasopharynx, oropharynx, hypopharynx, and larynx are otherwise normal in appearance. Enlarged 11 mm right level 1B lymph node (series 1500, image 17). Additional nonenlarged bilateral level one lymph nodes are present. No additional suspicious lymph nodes by size criteria. Tiny right intraparotid lymph node is present. The parotid and submandibular glands are normal in appearance. Normal flow voids of the neck. Disc osteophyte complex contacting the ventral cord at C6-C7. Visualized brain and orbits are unremarkable. IMPRESSION: 1. No visualized enhancing mass at the tongue. Consider PET/CT for further evaluation if needed. Repeat MR examination can be considered in 3 months if there is continued concern as well. 2. Enlarged right level 1B lymph node, which is nonspecific and may be reactive, however, neoplastic etiology is not excluded. Bilateral nonenlarged level 1 lymph nodes present. 3. Uvula is deviated slightly to the left without definite mass. Consider direct visualization. 4. Disc osteophyte complex contacting the ventral cord at C6-C7. Report Dictated on Final Dictated: 02/19/2018 9:48 am Dictating Physician: MD MENARD NEIL Signed Date and Time: 02/19/2018 10:06 am Signed by: MD MENARD NEIL Transcribed Date and Time: 02/19/2018 9:48 PROGRESS Observed: 02/12/2018 Status: COMPLETED Source: [place] 12:32 PM [facility] [place] REPOSITORY HNO ID: [id number] Author: Bisi Rossi Service: (none) Author Type: [...] inserted: 24 # of needles withdrawn: 24 [place] were retained for 30 minutes. TDP lamp [...] to face time spent with patient Bisi Sahurobe Beau November 20, 2017 Initial visit notes: [...] talking, posture No other complaints. Acupuncture and ukrainian herbal therapy is not a substitute for [...] for which patient is seeking treatment, the [employer], per [employer], recommends that this diagnostic exam be performed. CNOV Observed: 02/12/2018 Status: COMPLETED Source: [place] 10:30 AM [facility] REPOSITORY Office Visit (WEBR[place]) ISACC MATA ([id number]) 1975 M Date Time Provider Department 02/12/18 10:30 AM BISI ROSSI During your visit today, we recorded the following information about you: LUIS Hicks 02/12/2018 12:46 PM Signed Isacc Mata is a 42 [...] inserted: 24 # of needles withdrawn: 24 [place] were retained for 30 minutes. TDP lamp [...] face time spent with patient Bisi Rossi [facility] November 20, 2017 Initial visit notes: Chief [...] talking, posture No other complaints. Acupuncture and ukrainian herbal therapy is not a substitute for [...] for which patient is seeking treatment, the [employer], per [employer], recommends that this diagnostic exam be performed. Referring Provider: BISI ROSSI [[id number]] Allergies As of Date: 02/12/2018 Noted Allergy [...] NECK WITH Observed: 02/06/2018 Status: F Source: [place] CONTRAST 7:03 AM [facility] REPOSITORY [facility] Imaging Services [address] [place] [address] Soft Tissue Neck WITH Contrast MR#: [id number] Acct: [id number] Name: ISACC MATA Rep #: [id number] : 1975 M 42 From: Beau Franco MD PCP: Ashly Milligan MD Status: REG CLI Study: Soft Tissue Neck WITH Contrast Date of Exam: 02/06/18 Exam# [id number] Ordering Dr: Ashly Milligan MD STUDY: CT [...] FINDINGS: Normal bilateral parotid glands. Normal bilateral marketing planner spaces. Normal bilateral parapharyngeal spaces. Normal bilateral [...] Beau Franco MD at 14:34 EST Tel [phone], Service support , CC: Ashly Milligan MD Child Welfare Director: Signed PROGRESS Observed: 02/05/2018 Status: COMPLETED Source: [place] 1:34 PM [facility] REPOSITORY HNO ID: [id number] Author: Bisi Rossi Service: (none) Author Type: [...] inserted: 24 # of needles withdrawn: 24 [place] were retained for 30 minutes. TDP lamp [...] talking, posture No other complaints. Acupuncture and ukrainian herbal therapy is not a substitute for [...] for which patient is seeking treatment, the [employer], per [employer], recommends that this diagnostic exam be performed. BRENDA Observed: 02/05/2018 Status: COMPLETED Source: [place] 11:00 AM [facility] REPOSITORY Office Visit (WEBRIN) ISACC MATA ([id number]) 1975 M Date Time Provider Department 02/05/18 11:00 AM BISI ROSSI During your visit today, we recorded the following information about you: LUIS Hicks 02/05/2018 1:38 PM Signed Isacc Weir Adolfo is a 42 year old male February [...] inserted: 24 # of needles withdrawn: 24 [place] were retained for 30 minutes. TDP lamp applied to none. Patient tolerated the procedure well. Patient is a suitable candidate for LINDSAY: NO Recommended Follow-up: 1 time a week 30 minute face to face time spent with patient Bisi Rossi LAc November 20, 2017 Initial visit [...] talking, posture No other complaints. Acupuncture and ukrainian herbal therapy is not a substitute for [...] for which patient is seeking treatment, the [employer], per [employer], recommends that this diagnostic exam be performed. Referring Provider: BISI ROSSI [[id number]] Allergies As of Date: 02/05/2018 Noted Allergy [...] W/WO CONTRAST Observed: 01/22/2018 Status: F Source: [place] 3:30 PM [facility] REPOSITORY [facility] Imaging Services [facility] [place] [address] Brain W/WO Contrast MR#: [id number] Acct: [id number] Name: ISACC MATA Rep #: [id number] : 1975 M 42 From: Alma Vora PCP: Ashly Milligan MD Status: REG CLI Study: Brain W/WO Contrast Date of Exam: 01/22/18 Exam# [id number] Ordering Dr: DANY MUIR STUDY: MRI BRAIN [...] Tel , Service support , CC: DANY MUIR; Ashly Milligan MD Child Welfare Director: Signed PROGRESS Observed: 01/22/2018 Status: COMPLETED Source: [place] 11:57 AM [facility] [place] REPOSITORY HNO ID: [id number] Author: Bisi Rossi Service: (none) Author Type: [...] inserted: 24 # of needles withdrawn: 24 [place] were retained for 30 minutes. TDP lamp applied to none. Patient tolerated the procedure well. Patient is a suitable candidate for LINDSAY: NO Recommended Follow-up: 1 time a week 30 minute face to face time spent with patient Bisi Rudolph Rossi LAc Acupuncture and ukrainian herbal therapy is not a substitute for [...] for which patient is seeking treatment, the [employer], per [employer], recommends that this diagnostic exam be performed. BRENDA Observed: 01/22/2018 Status: COMPLETED Source: [place] 11:00 AM [facility] REPOSITORY Office Visit (WEBRIN) ISACC MATA ([id number]) 1975 M Date Time Provider Department 01/22/18 [...] inserted: 24 # of needles withdrawn: 24 [place] were retained for 30 minutes. TDP lamp applied to none. Patient tolerated the procedure well. Patient is a suitable candidate for LINDSAY: NO Recommended Follow-up: 1 time a week 30 minute face to face time spent with patient Bisi Rossi LAc Acupuncture and ukrainian herbal therapy is not a substitute for [...] for which patient is seeking treatment, the [employer], per [employer], recommends that this diagnostic exam be performed. Referring Provider: IBSI ROSSI [[id number]] Allergies As of Date: 01/22/2018 Noted Allergy Reaction SULFA (SULFONAMIDE ANTIBIOTICS) 12/23/2015 10 - Anaphylaxis Date Reviewed: 01/22/2018 Reviewed by: Bisi Rossi - Fully Assessed Primary Visit Diagnosis:Migraine without aura, intractable, without status migrainosus [G43.019] Other Visit Diagnosis:Tongue pain [K14.6] Prescriptions as of 01/22/2018 Sig: MULTI VITAMIN ORAL Take by mouth. Problem List As Of Date: 01/22/2018 (None) Encounter Status:Closed by BISI RSOSI V on 01/22/18 PROGRESS Observed: 01/15/2018 Status: COMPLETED Source: [place] 4:27 PM [facility] HNO ID: [id number] Author: Bisi Rossi Service: (none) Author Type: [...] inserted: 24 # of needles withdrawn: 24 [place] were retained for 30 minutes. TDP lamp applied to none. Patient tolerated the procedure well. Patient is a suitable candidate for LINDSAY: NO Recommended Follow-up: 1 time a week 30 minute face to face time spent with patient Bisi Rossi LAc Acupuncture and ukrainian herbal therapy is not a substitute for [...] for which patient is seeking treatment, the [employer], per [employer], recommends that this diagnostic exam be performed. BRENDA Observed: 01/15/2018 Status: COMPLETED Source: [place] 1:30 PM [facility] REPOSITORY Office Visit (WEBRIN) ISACC MATA ([id number]) 1975 M Date Time Provider Department 01/15/18 1:30 PM BISI ROSSI During your visit today, we recorded the following information about you: LUIS Hicks 01/15/2018 4:28 PM Signed Isacc Weir Adolfo is a [...] inserted: 24 # of needles withdrawn: 24 [place] were retained for 30 minutes. TDP lamp applied to none. Patient tolerated the procedure well. Patient is a suitable candidate for LINDSAY: NO Recommended Follow-up: 1 time a week 30 minute face to face time spent with patient Bisi Rossi LAc Acupuncture and ukrainian herbal therapy is not a substitute for [...] for which patient is seeking treatment, the [employer], per [employer], recommends that this diagnostic exam be performed. Referring Provider: BISI ROSSI [[id number]] Allergies As of Date: 01/15/2018 Noted Allergy [...] Status: F Source: [place] (TSH) 7:14 AM [facility] REPOSITORY TYPE CODE TESTS RESULT OUT OF RANGE REFERENCE UNITS LAB L501.9520 0.358-3.74 uIU/mL Normal TSH 1.82 Performed By: #### L501.9520 #### [facility] [address] [place], [address] PROGRESS Observed: 01/08/2018 Status: COMPLETED Source: [place] 5:07 PM [facility] REPOSIT[facility] HNO ID: [id number] Author: Bisi Rossi Service: (none) Author Type: [...] inserted: 24 # of needles withdrawn: 24 [place] were retained for 30 minutes. TDP lamp applied to none. Patient tolerated the procedure well. Patient is a suitable candidate for LINDSAY: NO Recommended Follow-up: 1 time a week 30 minute face to face time spent with patient Bisi Rudolph Rossi LAc Acupuncture and ukrainian herbal therapy is not a substitute for [...] for which patient is seeking treatment, the [employer], per [employer], recommends that this diagnostic exam be performed. BRENDA Observed: 01/08/2018 Status: COMPLETED Source: [place] 3:00 PM [facility] [place] REPOSITORY Office Visit (WEBRIN) ISACC MATA ([id number]) 1975 M Date Time Provider Department 01/08/18 3:00 PM BISI ROSSI During your visit today, we recorded the following information about you: LUIS Hicks 01/08/2018 5:09 PM Signed Isacc Weir Adolfo is a [...] inserted: 24 # of needles withdrawn: 24 [place] were retained for 30 minutes. TDP lamp applied to none. Patient tolerated the procedure well. Patient is a suitable candidate for LINDSAY: NO Recommended Follow-up: 1 time a week 30 minute face to face time spent with patient Bisi Rossi LAc Acupuncture and ukrainian herbal therapy is not a substitute for [...] for which patient is seeking treatment, the [employer], per [employer], recommends that this diagnostic exam be performed. Referring Provider: BISI ROSSI [[id number]] Allergies As of Date: 01/08/2018 Noted Allergy [...] 01/08/18 PROGRESS Observed: 12/27/2017 Status: COMPLETED Source: [place] 11:32 AM [facility] RE[facility] HNO ID: [id number] Author: Bisi Rossi Service: (none) Author Type: [...] inserted: 24 # of needles withdrawn: 24 [place] were retained for 30 minutes. TDP lamp applied to none. Patient tolerated the procedure well. Patient is a suitable candidate for LINDSAY: NO Recommended Follow-up: 1 time a week 30 minute face to face time spent with patient Bisi Rossi LAc Acupuncture and ukrainian herbal therapy is not a substitute for [...] for which patient is seeking treatment, the [employer], per [employer], recommends that this diagnostic exam be performed. BRENDA Observed: 12/27/2017 Status: COMPLETED Source: [place] 11:00 AM [facility] REPOSITORY Office Visit (MOSES) ISACC MATA ([id number]) 1975 M Date Time Provider Department 12/27/17 11:00 AM BISI ROSSI During your visit today, we recorded the following information about you: LUIS Hicks 12/27/2017 11:36 AM Signed Isacc Weir Adolfo is a 42 year old male December [...] inserted: 24 # of needles withdrawn: 24 [place] were retained for 30 minutes. TDP lamp applied to none. Patient tolerated the procedure well. Patient is a suitable candidate for LINDSAY: NO Recommended Follow-up: 1 time a week 30 minute face to face time spent with patient Bisi Rossi LAc Acupuncture and ukrainian herbal therapy is not a substitute for [...] for which patient is seeking treatment, the [employer], per [employer], recommends that this diagnostic exam be performed. Referring Provider: BISI ROSSI [[id number]] Allergies As of Date: 12/27/2017 Noted Allergy Reaction SULFA (SULFONAMIDE ANTIBIOTICS) 12/23/2015 10 - Anaphylaxis Date Reviewed: 12/27/2017 Reviewed by: Bisi Rossi - Fully Assessed Primary Visit Diagnosis:Migraine without aura, intractable, without status migrainosus [G43.019] Prescriptions as of 12/27/2017 Sig: MULTI VITAMIN ORAL Take by mouth. Problem List As Of Date: 12/27/2017 (None) Encounter Status:Closed by BISI ROSSI V on 12/27/17 PROGRESS Observed: 12/25/2017 Status: COMPLETED Source: [place] 3:48 PM [facility] RE[facility] HNO ID: [id number] Author: iBsi Rossi Service: (none) Author Type: Diplomat of [...] inserted: 24 # of needles withdrawn: 24 [place] were retained for 30 minutes. TDP lamp applied to none. Patient tolerated the procedure well. Patient is a suitable candidate for LINDSAY: NO Recommended Follow-up: 1 time a week 30 minute face to face time spent with patient Bisi ScalesShantel Rossi LAc Acupuncture and ukrainian herbal therapy is not a substitute for [...] for which patient is seeking treatment, the [employer], per [employer], recommends that this diagnostic exam be performed. BRENDA Observed: 12/25/2017 Status: COMPLETED Source: [place] 3:30 PM [facility] RE[facility]IT[facility] Office Visit (WEBR[place]) ISACC MATA ([id number]) 1975 M Date Time Provider Department 12/25/17 3:30 PM BISI ROSSI During your visit today, we recorded the following information about you: LUIS Hicks 12/25/2017 4:00 PM Signed Isacc Weir Adolfo is a 42 year old male December [...] inserted: 24 # of needles withdrawn: 24 [place] were retained for 30 minutes. TDP lamp applied to none. Patient tolerated the procedure well. Patient is a suitable candidate for LINDSAY: NO Recommended Follow-up: 1 time a week 30 minute face to face time spent with patient Bisi Rossi LAc Acupuncture and ukrainian herbal therapy is not a substitute for [...] for which patient is seeking treatment, the [employer], per [employer], recommends that this diagnostic exam be performed. Referring Provider: BISI ROSSI [[id number]] Allergies As of Date: 12/25/2017 Noted Allergy [...] 12/25/17 PROGRESS Observed: 12/18/2017 Status: COMPLETED Source: [place] 11:34 AM [facility] REPOSIT[facility] O ID: [id number] Author: Bisi Rossi Service: (none) Author Type: [...] inserted: 16 # of needles withdrawn: 16 [place] were retained for 30 minutes. TDP lamp applied to none. Patient tolerated the procedure well. Patient is a suitable candidate for LINDSAY: NO Recommended Follow-up: 1-2 times a week 30 minute face to face time spent with patient Bisi Rudolph Rossi LAc Acupuncture and ukrainian herbal therapy is not a substitute for [...] for which patient is seeking treatment, the [employer], per [employer], recommends that this diagnostic exam be performed. HERLINDAOV Observed: 12/18/2017 Status: COMPLETED Source: [place] 11:00 AM [facility] REPOSITORY Office Visit (WEBRIN) ISACC MATA ([id number]) 1975 M Date Time Provider Department 12/18/17 11:00 AM BISI ROSSI During your visit today, we recorded the following information about you: LUIS Hicks 12/18/2017 11:40 AM Signed Isacc Destin Mata is a 42 year old male [...] inserted: 16 # of needles withdrawn: 16 [place] were retained for 30 minutes. TDP lamp applied to none. Patient tolerated the procedure well. Patient is a suitable candidate for LINDSAY: NO Recommended Follow-up: 1-2 times a week 30 minute face to face time spent with patient Bisi Rossi LAc Acupuncture and ukrainian herbal therapy is not a substitute for [...] for which patient is seeking treatment, the [employer], per [employer], recommends that this diagnostic exam be performed. Referring Provider: BISI ROSSI [[id number]] Allergies As of Date: 12/18/2017 Noted Allergy [...] F Source: [place] PROCEDURE 3 8:18 AM [facility] REPOSITORY Order Comment: List Test(s) Ordered by Physician: B6 #[id number] PLASMA FROZEN PFL TYPE CODE TESTS RESULT OUT OF RANGE REFERENCE UNITS LAB L801.1545 Normal [facility] [place] Result Comment: TEST RESULT LIMITS Vitamin B6, Plasma Vitamin B6 43.3 ug/L 5.3 - 46.7 Disclaimer: This test was developed and its performance characteristics determined by [facility]. It has not been cleared or approved by the Food and Drug Administration. TEST[facility]FORMED AT [facility]. ORIGINAL REPORT ON FILE IN LAB CONTAINS ADDITIONAL TEST SITE INFORMATION. Performed By: #### L801.1545 #### [facility] [address] [place], [address] MISCELLANEOUS LAB Collected: 11/29/2017 Status: F Source: [place] PROCEDURE 2 8:18 AM [facility] REPOSITORY Order Comment: List Test(s) Ordered by Physician: B3 #[id number] SERUM RED TOP FROZEN TYPE CODE TESTS RESULT OUT OF RANGE REFERENCE UNITS LAB L801.1543 Normal [facility] LAB TEST 2 Result Comment: TEST RESULT UNITS REFERENCE INTERVAL VITAMIN B3 (NIACIN+METABOLITES) NICOTINAMIDE 21.8 ng/mL 5.2 - 72.1 NICOTINIC ACID <5.0 ng/mL 0.0 - 5.0 TESTING PERFORMED AT [facility]. ORIGINAL REPORT ON FILE IN LAB CONTAINS ADDITIONAL TEST SITE INFORMATION. Performed By: #### L801.1543 #### [facility] [address] [place], [address] MISCELLANEOUS LAB Collected: 11/29/2017 Status: F Source: [place] PROCEDURE 4 8:18 AM [facility] REPOSITORY Order Comment: List Test(s) Ordered by Physician: B5 #[id number] SERUM RED TOP RT TYPE CODE TESTS RESULT OUT OF RANGE REFERENCE UNITS LAB L801.1547 Normal M[facility] LAB TEST 4 Result Comment: TEST RESULT UNITS REFERENCE INTERVAL Vitamin B5 216.0 ng/mL 12.9 - 253.1 Results of this test are for Investigational Purposes Only. The performance characteristics of this assay have been determined by [facility]. The result should not be used as a diagnostic procedure without confirmation of the diagnosis by another medically established diagnostic product or procedure. TESTING PERFORMED AT [facility]. ORIGINAL REPORT ON FILE IN LAB CONTAINS ADDITIONAL TEST SITE INFORMATION. Performed By: #### L801.1547 #### [facility] [address] [place], [address] MISCELLANEOUS LAB Collected: 11/29/2017 Status: F Source: [place] PROCEDURE 8:18 AM [facility] REPOSITORY Order Comment: Test(s) Ordered: B2 #[id number] WB FROZEN PFL TYPE CODE TESTS RESULT OUT OF RANGE REFERENCE UNITS LAB L801.1541 Normal [facility] [place] Result Comment: TEST RESULT UNITS REF INTERVAL Vitamin B2, Whole Blood 218 ug/L 137 - 370 Reference interval reflects flavinadeninedinucleotide (FAD), that accounts for approximately 90% of the total riboflavin in whole blood. TESTING PERFORMED AT [facility]. ORIGINAL REPORT ON FILE IN LAB CONTAINS ADDITIONAL TEST SITE INFORMATION. Performed By: #### L801.1541 #### [facility] [address] [place], [address] VITAMIN B12 Collected: 11/29/2017 Status: F Source: [place] 8:08 AM [facility] REPOSITORY TYPE CODE TESTS RESULT OUT OF RANGE REFERENCE UNITS LAB L503.0105 211-911 pg/mL Normal Vitamin B12 641 Performed By: #### L503.0105, L506.1000 #### [facility] [address] [place], [address] VITAMIN D,25 HYDROXY Collected: 11/29/2017 Status: F Source: [place] 8:08 AM [facility] REPOSITORY TYPE CODE TESTS RESULT OUT OF REFERENCE UNITS RANGE LAB L506.1000 29.95-100.01 ng/mL Low Vitamin D 19.2 25-OH Result Comment: Vitamin D 25(OH) Status Range Deficiency <20 ng/mL (50nmol/L) Insuffciency 20 - 30 ng/mL (50 - 75 nmol/L) Sufficiency 30 - 100 ng/mL (75 - 250 nmol/L) Toxicity >100 ng/mL (>250 nmol/L) Performed By: #### L503.0105, L506.1000 #### [facility] [address] [place], [address] BASIC METABOLIC Collected: 11/29/2017 Status: F Source: [place] PROFILE (BMP) 8:08 AM [facility] REPOSITORY Order Comment: Comments: HERPES 6 VIRAL LOAD #129137 EDTA PLASMA FR Is Patient Taking Vitamins [...] Performed By: #### L500.2500, L501.5200, L506.0250 #### [facility] [address] [place], [place], [address] MAGNESIUM Collected: 11/29/2017 Status: F Source: [place] 8:08 AM [facility] REPOSITORY Order Comment: Comments: HERPES 6 VIRAL LOAD #765519 EDTA PLASMA FR Is Patient Taking Vitamins or Folic Acid Supplements? N TYPE CODE TESTS RESULT OUT OF RANGE REFERENCE UNITS LAB L501.5200 1.6-2.6 mg/dL Normal MG 2.0 Performed By: #### L500.2500, L501.5200, L506.0250 #### [facility] [address] [place], [place], [address] FOLATES, (FOLIC ACID) Collected: 11/29/2017 Status: F Source: [place] 8:08 AM [facility] REPOSITORY Order Comment: Comments: HERPES 6 VIRAL LOAD #920329 EDTA PLASMA FR Is Patient Taking Vitamins or Folic Acid Supplements? N TYPE CODE TESTS RESULT OUT OF RANGE REFERENCE UNITS LAB L506.0250 3.1-55.4 ng/mL Normal FOLATES 46.10 Performed By: #### L500.2500, L501.5200, L506.0250 #### [facility] [address] [place], [place], [address] MISCELLANEOUS LAB Collected: 11/29/2017 Status: F Source: [place] PROCEDURE 3 8:08 AM [facility] REPOSITORY Order Comment: Comments: HERPES 6 VIRAL LOAD #303448 EDTA PLASMA FR List Test(s) Ordered by Physician: HHV-6 IFA #[id number] TIGER REF TYPE CODE TESTS RESULT OUT OF RANGE REFERENCE UNITS LAB L801.1545 Normal [facility] [place] 3 Result Comment: TEST RESULT LIMITS Human Herpes Virus Type 6 IgM Human Herpes Virus Type 6 IgM <1:10 Neg:<1:10 Disclaimer: This test was developed and its performance characteristics determined by [facility]. It has not been cleared or approved by the Food and Drug Administration. TESTING PERFORMED AT [facility]. ORIGINAL REPORT ON FILE IN LAB CONTAINS ADDITIONAL TEST SITE INFORMATION. Performed By: #### L801.1545 #### [facility] [address] [place], [address] MISCELLANEOUS LAB Collected: 11/29/2017 Status: F Source: [place] PROCEDURE 2 8:08 AM [facility] REPOSITORY Order Comment: Comments: HERPES 6 VIRAL LOAD #985514 EDTA PLASMA FR List Test(s) Ordered by Physician: ZINC PROTOPORHYRIN #[id number] ROYAL BLUE WB RT TYPE CODE TESTS RESULT OUT OF RANGE REFERENCE UNITS LAB L801.1543 Normal [facility] [place] 2 Result Comment: TEST RESULT LIMITS Protoporphyrin, FEP/ZPP Protoporphyrin (FEP) 25 ug/dL 0 - 34 Zinc Protoporphyrin 28 ug/dL 0 - 38 ETIENNE: 100 TESTING [facility]FORMED [facility]. ORIGINAL REPORT ON FILE IN LAB CONTAINS ADDITIONAL TEST SITE INFORMATION. Performed By: #### L801.1543 #### [facility] [address] [place], [address] ANTI-MITOCHONDRIAL AB Collected: Status: F Source: [place] 11/29/2017 8:08 AM [facility] REPOSITORY TYPE CODE TESTS RESULT OUT OF [...] Status: F Source: [place] DIRECT 8:08 AM [facility] REPOSITORY TYPE CODE TESTS RESULT OUT OF RANGE REFERENCE UNITS LAB L3100.5475 Negative Normal Negative JOHN-DIRECT Result Comment: Performed at: - [facility] [id number] Clock Assembler: Carlos Akers PhD, Phone: [phone] Performed at: - [facility] [address] [id number] Clock Assembler: Juan Haro MD, Phone: [phone] Performed By: #### L800.1280, L3100.5475, L3300.0960 #### [facility] (refer to report for specific site) refer to report for address and phone number VITAMIN D 1,25-DIHYDROXY Collected: 11/29/2017 Status: F Source: [place] 8:08 AM [facility] REPOSITORY TYPE CODE TESTS RESULT OUT OF RANGE REFERENCE UNITS LAB L3300.0960 19.9-79.3 pg/mL Normal VITD 1,25 33.7 [address] Performed By: #### L800.1280, L3100.5475, L3300.0960 #### [facility] (refer to report for specific site) refer to report for address and phone number MISCELLANEOUS LAB Collected: 11/29/2017 Status: F Source: [place] PROCEDURE 8:08 AM [facility] REPOSITORY Order Comment: Comments: HERPES 6 VIRAL LOAD #556349 EDTA PLASMA FR Test(s) Ordered: HERPES 6 VIRAL LOAD #403421 EDTA PLASMA FR TYPE CODE TESTS RESULT OUT OF RANGE REFERENCE UNITS LAB L801.1541 Normal [facility] [place] Result Comment: TEST RESULT LIMITS HHV-6 Quant DNA PCR HHV-6 Quant DNA PCR Negative copies/mL Negative No Human Herpes Virus Type 6 DNA detected. The quantitative range of this assay is 100 to 1 million copies/mL. This test was developed and its performance characteristics determined by [facility]. It has not been cleared or approved by the Food and Drug Administration. The FDA has determined that such clearance or approval is not necessary. log10 HHV-6 Qn PCR Unable to calculate result since non-numeric result obtained for component test. TESTING PERFORMED AT [facility]. ORIGINAL REPORT ON FILE IN LAB CONTAINS ADDITIONAL TEST SITE INFORMATION. Performed By: #### L801.1541 #### [facility] [address] [place], [address] [facility] Collected: 11/29/2017 Status: F Source: [place] PROCEDURE 4 8:08 AM [facility] REPOSITORY Order Comment: Comments: HERPES 6 VIRAL LOAD #989470 EDTA PLASMA FR List Test(s) Ordered by Physician: ASCORBIC ACID VIT C #1479 SERUM FROZEN TYPE CODE TESTS RESULT OUT OF RANGE REFERENCE UNITS LAB L801.1547 Normal [facility] [place] 4 Result Comment: TEST RESULT LIMITS Vitamin C 1.0 mg/dL 0.2 - 2.0 TESTING PERFORMED AT [facility]. ORIGINAL REPORT ON FILE IN LAB CONTAINS ADDITIONAL TEST SITE INFORMATION. Performed By: #### L801.1547 #### [facility] [address] [place], [address] FOLATES, RBC Collected: 11/29/2017 Status: F Source: [place] 8:08 AM [facility] REPOSITORY Order Comment: Has Patient had X-rays with Contrast this admission? N Comments: HERPES 6 VIRAL LOAD #664600 EDTA PLASMA FR TYPE CODE TESTS RESULT [...] / Collected: 11/29/2017 Status: F Source: [place] ARIAS 8:08 AM [facility] REPOSITORY Order Comment: Has Patient had X-rays with Contrast this admission? N Comments: HERPES 6 VIRAL LOAD #308168 EDTA PLASMA FR TYPE CODE TESTS RESULT OUT OF RANGE REFERENCE UNITS LAB L3100.5320 264-916 ng/dL Normal 418 TESTOSTER,TO TWIN Result Comment: Adult male reference interval is based on a population of healthy nonobese males (BMI <30) between 19 and 39 years old. jeison Powell.al. JCEM 2017,102;6842-5529. PMID: [id number]. LAB L3100.5340 5.00-21.00 ng/dL TESTOSTER,FREE Normal 16.64 LAB L3100.5360 1.50-4.20 % TESTOSTER %FREE Normal 3.98 Performed By: #### L3100.1725, L3100.5310, L3100.5850, L3300.8000 #### [facility] (refer to report for specific site) refer to report for address and phone number EBV ACUTE PROF IGG Collected: 11/29/2017 Status: F Source: ELI / IGM 8:08 AM [facility] REPOSITORY Order Comment: Has Patient had X-rays with Contrast this admission? N Comments: HERPES 6 VIRAL LOAD #616983 EDTA PLASMA FR TYPE CODE TESTS RESULT OUT OF RANGE REFERENCE UNITS LAB L3100.5900 0.0-35.9 U/mL Normal EB-VCA < 36.0 [id number] Result Comment: Negative <36.0 Equivocal 36.0 - 43.9 Positive >43.9 LAB L3100.6000 0.0-8.9 U/mL Normal EB-EA IgG <9.0 43955 Result Comment: Negative < 9.0 Equivocal 9.0 - 10.9 Positive >10.9 LAB L3100.6100 0.0-17.9 U/mL High EB-VCA IfO14195 49.8 Result Comment: Negative <18.0 Equivocal 18.0 - 21.9 Positive >21.9 LAB L3100.6200 0.0-17.9 U/mL High EB-NAg 162.0 [id number] Result Comment: Negative <18.0 Equivocal 18.0 - [...] 11/29/2017 Status: F Source: [place] 8:08 AM [facility] REPOSITORY Order Comment: Has Patient had X-rays with Contrast this admission? N Comments: HERPES 6 VIRAL LOAD #274500 EDTA PLASMA FR TYPE CODE TESTS RESULT OUT OF RANGE REFERENCE UNITS LAB L3300.8000 66.5-200.0 nmol/L Normal VIT B1 139.6 Result Comment: This test was developed and its performance characteristics determined by [employer]. It has not been cleared or approved by the Food and Drug Administration. Performed at: [facility] [id number] Clock Assembler: Carlos Akers PhD, Phone: [phone] Performed at: [facility] [id number] Clock Assembler: Juan Haro MD, Phone: [phone] Performed By: #### L3100.1725, L3100.5310, L3100.5850, L3300.8000 #### [facility] (refer to report for specific site) refer to report for address and phone number PROGRESS Observed: 11/20/2017 Status: COMPLETED Source: [place] 11:46 AM [facility] REPOSITORY HNO ID: [id number] Author: Bisi Rossi Service: (none) Author Type: [...] inserted: 8 # of needles withdrawn: 8 [place] were retained for 30 minutes. TDP lamp applied to none. Patient tolerated the procedure well. Patient is a suitable candidate for LINDSAY: NO I explained group session expectations and differences from private room visits. Recommended Follow-up: 1-2 times a week 30 minute face to face time spent with patient Bisi BANEGAS discussed with patient. All questions answered and Informed Consent was gathered. This is the patient's initial visit. Intake form located in patient file. Acupuncture and ukrainian herbal therapy is not a substitute for [...] for which patient is seeking treatment, the [employer], per [place] [employer], recommends that this diagnostic exam be performed. HERLINDAOV Observed: 11/20/2017 Status: COMPLETED Source: [place] 11:00 AM [facility] REPOSITORY Office Visit (WEBRIN) ISACC MATA ([id number]) 1975 M Date Time Provider Department 11/20/17 11:00 AM BISI ROSSI During your visit today, we recorded the following information about you: LUIS Hicks 11/22/2017 10:16 AM Addendum Isacc Weir Adolfo is a 42 year old male This [...] inserted: 8 # of needles withdrawn: 8 [place] were retained for 30 minutes. TDP lamp applied to none. Patient tolerated the procedure well. Patient is a suitable candidate for LINDSAY: NO I explained group session expectations and differences from private room visits. Recommended Follow-up: 1-2 times a week 30 minute face to face time spent with patient Bisi Rossi LAc [facility] discussed with patient. All questions answered and Informed Consent was gathered. This is the patient's initial visit. Intake form located in patient file. Acupuncture and ukrainian herbal therapy is not a substitute for [...] for which patient is seeking treatment, the [employer], per [place] [employer], recommends that this diagnostic exam be [...] ESOPHAGUS ONLY Observed: 10/18/2017 Status: F Source: [place] 8:27 AM [facility] REPOSITORY [facility] Imaging Services [address] [place] [address] Esophagus Only MR#: [id number] Acct: [id number] Name: ADOLFO,ISACC B Rep #: [id number] : 1975 M 42 From: Beau Franco MD PCP: Ashly Milligan MD Status: REG CLI Study: Esophagus Only Date of Exam: 10/18/17 Exam# [id number] Ordering Dr: Ashly Milligan MD STUDY: X-RAY [...] Beau Franco MD at 9:52 EDT Tel [phone], Service support , CC: Ashly Milligan MD Child Welfare Director: Signed 12 LEAD ELECTROCARDIOGRAM Observed: 10/09/2017 Status: F Source: [place] 3:44 PM [facility] REPOSITORY [facility] Cardiovascular Services [address] [place] [address] 12 Lead EKG 10/03/17 1735 MR#: [id number] Acct: [id number] Name: ISACC MATA Rep #: [id number] : 1975 42 From: Albert Clements MD Attending Dr: Aaron Henry Status: DIS ASHLEY Ordering Dr: Bela, Ed P. Date: 10/03/17 Location: U Sex: M C Admitted: 10/03/17 Test Reason : CP Blood Pressure : / mmHG Vent. Rate : 066 BPM Atrial Rate : 066 BPM P-R Int : 158 ms QRS Dur : 096 ms QT Int : 392 ms P-R-T Axes : 054 029 007 degrees QTc Int : 410 ms Normal sinus rhythm Normal ECG Confirmed by LELE BECKMAN, ALBERT ([id number]), school photograph editor [place] (57) on 10/09/2017 3:43:40 PM Referred By: NIESHA Confirmed By:ALBERT CLEMENTS MD 10/09/17 1543 Date Albert Clements MD CC: ED PHYSICIAN PROVIDER; Ashly Milligan MD; Aaron Henry; Nathan Yung MD Signed 12 LEAD ELECTROCARDIOGRAM Observed: 10/06/2017 Status: F Source: [place] 2:08 PM [facility] REPOSITORY [facility] Cardiovascular Services [address] [place] [address] 12 Lead EKG 10/03/17 2136 MR#: [id number] Acct: [id number] Name: ISACC MATA Rep #: [id number] : 1975 42 From: Mundo Magaña MD Attending Dr: Aaron Henry Status: DIS ASHLEY Ordering Dr: Ashly Paez DO Date: 10/03/17 Location: [facility] Sex: M C Admitted: 10/03/17 Test Reason [...] progression Nonspecific T wave abnormality Confirmed by MUNDO MAGAÑA MD ([id number]), school photograph editor [place] (57) on 10/06/2017 2:07:55 PM Referred By: CARLOS ALBERTO Confirmed By:MUNDO MAGAÑA MD 10/06/17 1408 Date Mundo Magaña MD CC: Ashly Paez DO; Ashly Milligan MD; Aaron Henry; Nathan Yung MD Signed 12 LEAD ELECTROCARDIOGRAM Observed: 10/06/2017 Status: F Source: [place] 2:06 PM [facility] REPOSITORY [facility] Cardiovascular Services [address] [place] [address] 12 Lead EKG 10/04/17 0508 MR#: [id number] Acct: [id number] Name: ISACC MATA Rep #: [id number] : 1975 42 From: Mundo Magaña MD Attending Dr: Aaron Henry Status: DIS ASHLEY Ordering Dr: Ashly Paez DO Date: 10/04/17 Location: [facility] Sex: M C Admitted: 10/03/17 Test Reason [...] progression Nonspecific T wave abnormality Confirmed by MUNDO MAGAÑA MD ([id number]), school photograph editor [place] (57) on 10/06/2017 2:05:51 PM Referred By: CARLOS ALBERTO Confirmed By:MUNDO MAGAÑA MD 10/06/17 1405 Date Mundo Magaña MD CC: Ashly Paez DO; Ashly Milligan MD; Aaron Henry; Nathan Yung MD Signed DISCHARGE SUMMARY Observed: 10/05/2017 Status: F Source: [place] 12:11 PM [facility] REPOSITORY [facility] Medical Records Department [address] [place] [address] Discharge Summary 10/04/17 1458 MR#: [id number] Acct: [id number] Name: ISACC MATA Rep #: [id number] : 1975 42 From: Aaron Henry MD PCP: Ashly Milligan MD Status: DIS ASHLEY Y Location: [place] [address] Discharge Date and Diagnosis Date of Admission: [...] all that apply): None applicable Code Visit OBSLoyda SANTIAGO M: [id number] Observation care discharge 10/05/17 1211 <Electronically signed by Aaron Henry MD> Date Aaron Henry MD Cosigner Signature (if applicable): Date CC: Ashly Milligan MD; Aaron Henry; Nathan Yung MD Signed DISCHARGE INSTRUCTION Observed: 10/04/2017 Status: F Source: [place] 11:13 AM [facility] REPOSITORY [facility] Medical Records Department [address] [place] [address] Instructions for Home/Discharge Instructions 10/04/17 1112 MR#: [id number] Acct: [id number] Name: ISACC MATA [place] Rep #: [id number] : 1975 42 From: Aaron Henry MD [...] BASIC METABOLIC Collected: 10/04/2017 Status: F Source: [place] PROFILE ([facility]) 5:00 AM [facility] REPOSITORY TYPE CODE TESTS RESULT OUT OF [...] 6 Performed By: #### L500.2500, L500.4100 #### [facility] [address] [place], [place], [address] LIPID PROFILE Collected: 10/04/2017 Status: F Source: [place] 5:00 AM [facility] REPOSITORY TYPE CODE TESTS RESULT OUT OF [...] 32 Performed By: #### L500.2500, L500.4100 #### [facility] [address] [place], [place], [address] CBC W/DIFF, AUTOMATED Collected: 10/04/2017 Status: F Source: [place] 5:00 AM [facility] REPOSITORY TYPE CODE TESTS RESULT OUT OF [...] Lymph 1.59 Performed By: #### L100.0100 #### [facility] [address] [place], [place], [address] PROTHROMBIN TIME W/INR Collected: 10/04/2017 Status: F Source: [place] 5:00 AM [facility] REPOSITORY TYPE CODE TESTS RESULT OUT OF RANGE REFERENCE UNITS LAB L300.4150 11.7-14.9 SECONDS Normal PROTIME 13.3 LAB L300.4200 Normal INR 1.0 Performed By: #### L300.3900, L300.4310 #### [facility] [address] [place], [place], [address] PARTIAL THROMBOPLAST Collected: 10/04/2017 Status: F Source: [place] TIME 5:00 AM [facility] REPOSITORY TYPE CODE TESTS RESULT OUT OF RANGE REFERENCE UNITS LAB L300.4310 24.1-36.2 Seconds Normal PTT 29.2 Performed By: #### L300.3900, L300.4310 #### [facility] [address] [place], [address] TROPONIN-I Collected: 10/04/2017 Status: F Source: [place] 12:35 AM [facility] REPOSITORY Order Comment: 'TROP' Serial specimen #1, #2 or #3: 3 TYPE CODE TESTS RESULT OUT OF RANGE REFERENCE UNITS LAB L501.4010 <0.045 ng/mL Normal < 0.015 TROPONIN-I Result Comment: TROPONIN-I EXPECTED VALUES <0.045 Negative 0.045 - 0.590 Consistent with Cardiac Damage > OR = 0.600 Critical Value Not every elevated troponin is indicative of AK. These values should be used with clinical judgement in examining the patient's clinical picture for diagnosis. To establish a diagnosis of AK versus myocardial injury, there must be a demonstrated rise and/or fall in the troponin values, in addition to ischemic symptoms, EKG changes, new regional wall motion abnormality, and/or angiographical evidence. PLEASE NOTE: REFERENCE RANGES EDITED 17 Performed By: #### L501.4010 #### [facility] [address] [place], [address] EMERGENCY DEPARTMENT Observed: 10/03/2017 Status: F Source: [place] SUMMARY 11:27 PM [facility] REPOSITORY [facility] Medical Records Department [address] [place] [address] Emergency Department Summary 10/03/17 1930 MR#: [id number] Acct: [id number] Name: ISACC MATA Rep #: [id number] : 1975 42 From: Mouna Berman MD [...] Chest pain This note was generated with [employer] dictation software. It may contain incorrect words, [...] problems, contact your Primary Care Provider. Call [facility] ([phone]) or report to the closest Emergency Room. Call 911 if necessary. 10/03/17 1868 <Electronically signed by Mouna Berman MD> Date Mouna Berman MD Cosigner Signature (If Indicated): Date CC: Ashly Milligan MD; Nathan Yung MD HISTORY AND PHYSICAL Observed: 10/03/2017 Status: F Source: [place] EXAM 8:03 PM [facility] REPOSITORY [facility] Medical Records Department [address] [place] [address] History and Physical 10/03/171955 MR#: [id number] Acct: [id number] Name: ISACC MATA Rep #: [id number] : 1975 42 From: Ashly Paez DO PCP: Milligan MD,Ashly Status: REG ER Y Location: ED Problem [...] negative he may need to see a television engineering teacher for possible EGD. 2. DVT prophylaxis: Patient is low risk, no DVT prophylaxis is necessary at this time and also the fact the patient is under observation status. Code Visit OBSV E AND M: 06093 Initial observation care L2 10/03/172002 <Electronically signed by Ashly Paez DO> Date Ashly Paez DO Cosigner Signature: Date (if applicable) CC: Ashly Paez DO; Ashly Milligan MD; Nathan Yung MD Signed CBC W/DIFF, AUTOMATED Collected: 10/03/2017 Status: F Source: [place] 5:45 PM [facility] REPOSITORY TYPE CODE TESTS RESULT OUT OF [...] Lymph 1.77 Performed By: #### L100.0100 #### [facility] [address] [place], [place], [address] BASIC METABOLIC Collected: 10/03/2017 Status: F Source: [place] PROFILE (BMP) 5:45 PM [facility] REPOSITORY TYPE CODE TESTS RESULT OUT OF [...] 4 Performed By: #### L500.2500, L501.4010 #### [facility] [address] [place], [place], [id number] TROPONIN-I Collected: 10/03/2017 Status: F Source: [place] 5:45 PM [facility] CENTER REPOSITORY TYPE CODE TESTS RESULT OUT OF RANGE REFERENCE UNITS LAB L501.4010 <0.045 ng/mL Normal < 0.015 TROPONIN-I Result Comment: TROPONIN-I EXPECTED VALUES <0.045 Negative 0.045 - 0.590 Consistent with Cardiac Damage > OR = 0.600 Critical Value Not every elevated troponin is indicative of AK. These values should be used with clinical judgement in examining the patient's clinical picture for diagnosis. To establish a diagnosis of AK versus myocardial injury, there must be a demonstrated rise and/or fall in the troponin values, in addition to ischemic symptoms, EKG changes, new regional wall motion abnormality, and/or angiographical evidence. PLEASE NOTE: REFERENCE RANGES EDITED 17 Performed By: #### L500.2500, L501.4010 #### [facility] [address] [place], [address] D-DIMER QUANTITATIVE Collected: 10/03/2017 Status: F Source: [place] (DVT/PE) 5:45 PM [facility] REPOSITORY TYPE CODE TESTS RESULT OUT OF RANGE REFERENCE UNITS LAB L300.8000 0.27-0.49 FEU/ug/m Normal D-DIMER 0.27 QUANT Result Comment: NORMAL D-Dimer level (<0.50) indicates no DVT or PE. Performed By: #### L300.8000 #### [facility] [address] [place], [address] CHEST 1 VIEW Observed: 10/03/2017 Status: F Source: [place] (PORTABLE) 5:37 PM [facility] REPOSITORY [facility] Imaging Services [address] [place] [address] Chest 1 View (Portable) MR#: [id number] Acct: [id number] Name: ISACC MATA Rep #: [id number] : 1975 M 42 From: Herb Neely MD PCP: Ashly Milligan MD Status: REG ER Study: Chest 1 View (Portable) Date of Exam: 10/03/17 Exam# [id number] Ordering Dr: Mouna Berman MD STUDY: X-RAY [...] CC: Ashly Milligan MD; Mouna Berman MD Child Welfare Director: Signed DISCHARGE INSTRUCTION Observed: 07/21/2017 Status: F Source: [place] 11:25 AM [facility] Medical Records Department [address] [place] [address] Instructions for Home/Discharge Instructions 07/21/17 1124 MR#: [id number] Acct: [id number] Name: ISACC MATA Rep #: [id number] : 1975 41 From: Ashly Beckman MD [...] OPERATIVE REPORT Observed: 07/21/2017 Status: F Source: [place] 11:24 AM [facility] REPOSITORY [facility] Medical Records Department [address] [place] [address] Operative Report 07/21/17 1114 MR#: [id number] Acct: [id number] Name: ISACC MATA Rep #: [id number] : 1975 41 From: Ashly Beckman MD PCP: Nathan Yung Status: REG SDC Y Location: [place] [address] Problem List (1) Other specified disorders of [...] TONGUE BIOPSY Observed: 07/21/2017 Status: F Source: [place] 12:00 AM [facility] REPOSITORY Patient: ISACC MATA : 1975 (41/M) Acct Num: [id number] Phys: Ashly Beckman MD Unit Num: [id number] Loc: [facility] Specimen: [id number] Received: 07/21/17 - 1106 Spec Type: TONGUE BX TISSUES TISSUES: Tongue, [...] and submitted entirely in one cassette. / SJ:subhash 07/21/17 TC:5 CPT: 05644, 85263 HEADER OPERATION: Biopsy tongue, anterior, frozen section [...] on file> Performed By: #### PTOBX #### [facility] [place], [address] D/C SUMMARY- SP Observed: 07/10/2017 Status: F Source: [place] 1:46 PM [facility] REPOSITORY [facility] Speech Pathology [facility] [address] [place], [place] [address] Fax REHABILITATION SERVICES DISCHARGE SUMMARY MR#: [id number] Acct: [id number] Name: ISACC MATA Rep #: [id number] : 1975 41 From: Thierno Hou M.A., CCC-CHIEF ACCOUNTANT Referring Dr.: Nathan Yung Status: REG R Insurance: [employer] Discharge Summary - Discharged: Discharge: Isacc Mata Is discharged from [facility] as of July 10, 2017. He decided [...] physician. <Electronically signed by Thierno Hou M.A., CCC-CHIEF ACCOUNTANT> 07/10/17 1346 CC: Nathan Yung JLB Signed COMPREHENSIVE METABOLIC Collected: 06/01/2017 Status: F Source: [place] PROFIL 11:09 AM [facility] REPOSITORY Order Comment: Is Patient Taking Vitamins [...] #### L500.4050, L501.9520, L503.6150, L503.6550, L506.0250 #### [facility] [address] [place], [address] THYROID STIM HORMONE Collected: 06/01/2017 Status: F Source: [place] (TSH) 11:09 AM [facility] REPOSITORY Order Comment: Is Patient Taking Vitamins or Folic Acid Supplements? Y TYPE CODE TESTS RESULT OUT OF RANGE REFERENCE UNITS LAB L501.9520 0.358-3.74 uIU/mL Normal TSH 1.42 Performed By: #### L500.4050, L501.9520, L503.6150, L503.6550, L506.0250 #### [facility] [address] [place], [address] IRON Collected: 06/01/2017 Status: F Source: [place] 11:09 AM [facility] REPOSITORY Order Comment: Is Patient Taking Vitamins or Folic Acid Supplements? Y TYPE CODE TESTS RESULT OUT OF RANGE REFERENCE UNITS LAB L503.6150 65-175 ug/dL Normal IRON 89 Performed By: #### L500.4050, L501.9520, L503.6150, L503.6550, L506.0250 #### [facility] [address] [place], [address] FERRITIN Collected: 06/01/2017 Status: F Source: [place] 11:09 AM [facility] REPOSITORY Order Comment: Is Patient Taking Vitamins or Folic Acid Supplements? Y TYPE CODE TESTS RESULT OUT OF RANGE REFERENCE UNITS LAB L503.6550 26-388 ng/mL Normal FERRITIN 114 Performed By: #### L500.4050, L501.9520, L503.6150, L503.6550, L506.0250 #### [facility] [address] [place], [address] FOLATES, (FOLIC ACID) Collected: 06/01/2017 Status: F Source: [place] 11:09 AM [facility] REPOSITORY Order Comment: Is Patient Taking Vitamins or Folic Acid Supplements? Y TYPE CODE TESTS RESULT OUT OF RANGE REFERENCE UNITS LAB L506.0250 3.1-55.4 ng/mL Normal FOLATES 18.80 Performed By: #### L500.4050, L501.9520, L503.6150, L503.6550, L506.0250 #### [facility] [address] [place], [address] VITAMIN B12 Collected: 06/01/2017 Status: F Source: [place] 11:09 [facility] REPOSITORY TYPE CODE TESTS RESULT OUT OF REFERENCE UNITS RANGE LAB L503.0105 211-911 pg/mL High Vitamin B12 > 2000 Performed By: #### L503.0105 #### [facility] [address] [place], [address] ANTINUCLEAR ANTIBODIES Collected: 06/01/2017 Status: F Source: [place] DIRECT 11:09 AM [facility] REPOSITORY Order Comment: CC COPY OF RESULTS TO DR.TRACY REYES IN [place] TYPE [facility] TESTS RESULT OUT OF RANGE REFERENCE UNITS LAB L3100.5475 Negative Normal Negative JOHN-DIRECT Result Comment: Performed at: [facility] [id number] Clock Assembler: Carlos Akers PhD, Phone: [phone] Performed By: #### L3100.5475 #### [facility] (refer to report for specific site) refer to report for address and phone number CELIAC DISEASE Collected: 06/01/2017 Status: F Source: [place] PROFILE 11:09 AM [facility] REPOSITORY Order Comment: CC COPY OF RESULTS TO DR.TRACY REYES IN [place] TYPE [facility] TESTS RESULT OUT OF RANGE REFERENCE UNITS [...] 06/01/2017 Status: F Source: [place] 11:09 AM [facility] REPOSITORY Order Comment: CC COPY OF RESULTS TO DR.TRACY REYES IN [place] TYPE [facility] TESTS RESULT OUT OF RANGE REFERENCE UNITS LAB L4600.0205 . 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 Compound heterozygosity for the C677T and H1830R variants is unlikely to be of clinical [...] common variants in the MTHFR gene, c.655c>T (p.Pxx210Puix), referred to as C677T, and c.1286A>C (p.Vam882Bfm), referred to as C2206M. Individuals homozygous for C677T (two copies of [...] conditions in the absence of hyperhomocysteinemia. The H9856U variant is not associated with elevated homocysteine levels unless a C677T variant is also present; however, the clinical significance of heterozygosity for both C677T and D5699D is controversial. Population data suggest that these [...] health care providers to discuss results at [phone]. Methodology: DNA analysis of the MTHFR gene was performed by PCR amplification followed by restriction analysis. The diagnostic sensitivity is >99% for both. Molecular-based testing is highly accurate, but as in any laboratory test, rare diagnostic errors may occur. All test results must be combined with clinical information for the most accurate interpretation. This test was developed and its performance characteristics determined by [facility]. It has not been cleared or approved by the Food and Drug Administration. References: Susannao LD, Melo Q. Am J Epidemiol 2000; 151(9):862-877. Maty MM, Ok DE DIOS. Arch Pathol Lab Med 2007; 131(6):872-884. Frosst P et al. Annie Brenda 1995; 10(1):111-113. Hickey SE et al. Brenda Med 2013; 15(2):153-156. Srinivas C et al. Obstet Gynecol 2011; 118(3):730-740. Tico B et al. Eur J Epidemiol 2013; 28(8):621-647. Tia Villeda, PhD, [facility] Kayla Hein, PhD, [facility] Lee Ann Arguelles MShantelSShantel, PhD, FAC Gail Carrion, PhD, FAC Dinora Ferrer, PhD, [facility] Jose Maria Teague, PhD, [facility] Performed at: [address] [id number] Clock Assembler: Carlos Akers PhD, Phone: [phone] Performed at: [address] [id number] Clock Assembler: Theo Alford MD, Phone: [phone] Performed By: #### L3410.2400, L4600.0155 #### [facility] (refer to report for specific site) refer to report for address and phone number CNTHERAPY Observed: 05/18/2017 Status: COMPLETED Source: [place] 3:15 PM [facility] REPOSITORY OT/PT/Speech Visit (SPWCMN) ISACC MATA ([id number]) 1975 M Date Time Provider Department 05/18/17 3:15 PM EMIL CLINE (CHIEF ACCOUNTANT) SPWCMN Date Time Provider Department Center 05/18/2017 3:15 PM [id number], EMILY *SPWCMN Jerry Durantjelena Reason for Visit: Speech Therapy [3489] Primary Visit Diagnosis:Dysarthria [R47.1] Allergies As of Date: 05/18/2017 Noted Allergy Reaction SULFA (SULFONAMIDE ANTIBIOTICS) 12/23/2015 10 - Anaphylaxis Date Reviewed: 05/05/2017 Reviewed by: Bipin Leyva Ma - Fully Assessed Prescriptions as of 05/18/2017 Sig: MULTI VITAMIN ORAL Take by mouth. Progress Notes: Emil Cline CCC-GAGE, ROSSI/CHIEF ACCOUNTANT 05/18/2017 4:59 PM Addendum [facility] Speech Language Pathology Consult SPEECH LANGUAGE EVALUATION [...] response, then follow-up with Dr. Sullivan. Emil Cline CCC-GAGE Voicemail: [phone] Beeper: [phone] Name: Isacc Mata : 1975 CC #: [id number] Referring Physician: Dr. Sullivan Date of onset: [...] when he woke up in September (2016). [place] like entire tongue was a minoo horse, [...] functional. 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 [...] rate with more of scanning pattern of dnsr-dx-fpqr reading but articulation remained intact. Suspect change [...] 7 Voice 7 7-WFL; 6-mild; 5-mild-mod; 4-mod; 5-dlc-snadrp; 2-severe; 1-profound Results and Treatment Plan discussed with: Patient. Provided my contact information. Date of Evaluation: 05/18/2017 Emil Cline CCC-CHIEF ACCOUNTANT Speech Language Pathologist Voicemail: [phone] Beeper: [phone] Previous Version PROGRESS Observed: 05/18/2017 Status: COMPLETED Source: [place] 3:01 PM [facility] REPOSITORY HNO ID: [id number] Author: Emil Nascimento (Sinter Press Operator) ROSSI Cline/CHIEF ACCOUNTANT Service: (none) Author Type: Speech Language Pathologist Type: Progress Notes Filed: 05/18/2017 4:59 PM Note Text: [facility] Speech Language Pathology Consult SPEECH LANGUAGE EVALUATION [...] then follow-up with Dr. [place]. Emil Cline, [facility]-CHIEF ACCOUNTANT Voicemail: [phone] Beeper: [phone] Name: Isacc Mata : 1975 CC #: [id number] Referring Physician: Dr. Sullivan Date of onset: [...] when he woke up in September (2016). [place] like entire tongue was a minoo horse, [...] functional. 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 [...] rate with more of scanning pattern of wfgn-qz-ajji reading but articulation remained intact. Suspect change [...] 7 Voice 7 7-WFL; 6-mild; 5-mild-mod; 4-mod; 1-rll-itlmba; 2-severe; 1-profound Results and Treatment Plan discussed with: Patient. Provided my contact information. Date of Evaluation: 05/18/2017 Emil Cline CCC-CHIEF ACCOUNTANT Speech Language Pathologist Voicemail: [phone] Beeper: [phone] D/C SUMMARY- SP Observed: 05/15/2017 Status: F Source: [place] 11:50 AM [facility] REPOSITORY [facility] Speech Pathology [facility] [address] [place], [place] [address] Fax REHABILITATION SERVICES DISCHARGE SUMMARY MR#: [id number] Acct: [id number] Name: ISACC MATA Rep #: [id number] : 1975 41 From: Thierno Hou M.A., CCC-CHIEF ACCOUNTANT Referring Dr.: Nathan Yung Status: REG R Insurance: [employer] Discharge Summary - Discharged: Discharge: Isacc Mata is discharged from [facility] as of May 15, 2017. His initial [...] physician. 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 Problem List As Of Date: 05/05/2017 (None) Visit Notes: >> Bipin Leyva Ma MonMay 05, 2017 9:46 AM Status: Signed Tobacco [...] CARE VISIT Observed: 04/20/2017 Status: F Source: [place] REPORT 12:21 PM [facility] REPOSITORY [facility] [address] [place] [address] [address] [place] [id number] OFFICE VISIT Date of Service: 04/20/17 MR#: [id number] Acct: [id number] Name: ISACC MATA Rep #: [id number] : 1975 Provider: Herb BOWENS Age/Sex: 41/M Location: [facility] Status: Signed Intake Vital Signs04/20/17 Height 5 ft 9 in 04/20/17 Weight: 196 lb 04/20/17 Body Mass Index (BMI) 28.9 Intake Visit Reasons: EARACHE Chief Complaint: Sinus pressure and left ear pain Perforator Typist Required: No Is patient in pain?: No [...] the above. This note was generated with [employer] dictation software. It may contain incorrect words, spelling, and punctuation that were not noted in checking the note before signing. Medications New: Coding Level of Care Code Off vis,est,level 4 Diagnoses Otitis media H66.90 Sinusitis, acute maxillary J01.00 04/20/17 1221 <Electronically signed by Herb BOWENS> Date Herb BOWENS Cosigner Signature: Date (if applicable) CC: URGENT CARE VISIT Observed: 04/05/2017 Status: F Source: [place] REPORT 3:23 PM [facility] REPOSITORY [facility] [address] [place] [address] OFFICE VISIT Date of Service: 04/05/17 MR#: [id number] Acct: [id number] Name: ISACC MATA Rep #: [id number] : 1975 Provider: Herb BOWENS Age/Sex: 41/M Location: [facility] Status: Signed Intake Vital Signs04/05/17 Height 5 [...] Orientation: alert, awake, oriented x3 [facility] Head: normal to inspection Ears: hearing [...] the above. This note was generated with [employer] dictation software. It may contain incorrect words, [...] Status: F Source: [place]I CONTRAS 4:08 PM [facility] REPOSITORY [facility] Imaging Services [address] [place] [address] Sinus/Facial Bone WITH Contras MR#: [id number] Acct: [id number] Name: ISACC MATA Rep #: [id number] : 1975 M 41 From: Alma Vora PCP: Nathan Yung Status: REG CLI Study: Sinus/Facial Bone WITH Contras Date of Exam: 03/24/17 Exam# [id number] Ordering Dr: Ashly Beckman MD STUDY: CT [...] , CC: Ashly Beckman MD; Nathan Yung Child Welfare Director: Signed ADULT EVALUATION - SP Observed: 03/08/2017 Status: F Source: [place] 1:59 PM [facility] REPOSITORY [facility] Speech Pathology [facility] [address] [place] [address] Fax REHABILITATION SERVICES INITIAL EVALUATION MR#: [id number] Acct: [id number] Name: ISACC MATA Rep #: [id number] : 1975 41 From: Thierno Hou M.A., [facility]-CHIEF ACCOUNTANT Referring Dr.: Nathan Yung Status: REG RCR Insurance: [employer] History - History Date of Eval: 03/06/17 [...] Verbalize understanding <Electronically signed by Thierno Hou M.A. [facility]-CHIEF ACCOUNTANT> 03/08/17 1359 CC: Nathan Yung AUDI Signed For Medicare only, by signing this I certify the plan of care. Physicians Signature Date ALLERGIES ALLERGIES DATE TYPE / CODE NAME / CODE REACTION SEVERITY SOURCE 01/11/2018 Drug Sulfa Anaphylaxis Unknown [facility] Repository ED CT) /[id number]( RXNORM) 12/23/2015 Drug SULFA ANAPHYLAXIS High [facility] Class/03096 (SULFONAMIDE [place] [address](SNOMED ANTIBIOTICS) Repository CT) ENCOUNTERS ENCOUNTERS ADMIT/DISCHARGE ACCOUNT NUMBER ADMITTING ENCOUNTER LOCATION SOURCE CLASS 03/16/2018 [id number] [facility] ding:MASS Repository 02/19/2018 [id number] [facility] Repository 02/12/2018/02/14/[id number] Repository 02/06/2018 [id number] [facility] ding:CT Repository 02/05/2018/02/07/[id number] Repository 01/25/2018 [id number] [facility] ding:LAB.FUT Repository URE 01/22/2018 [id number] [facility] ding:MRI Repository 01/22/2018/01/24/20 [id number] [address]ulatory [address] Repository 01/15/2018/01/17/20 [id number] Ambulatory [address] Repository 01/15/2018 [id number] [facility] ding:MTLAB Repository 01/08/2018/01/10/20 [id number] Ambulatory [address] Repository 12/27/2017/12/29/[id number] Repository 12/25/2017/12/27/19 [id number] Ambulatory [address] Repository 12/18/2017/12/20/19 [id number] Ambulatory [address] Repository 11/29/2017 [id number] [facility] ding:MFPLAB Repository 11/29/2017 [id number] Ambulatory [facility] ding:LAB.FUT Repository URE 11/20/2017/12/05/19 [id number] Ambulatory [address] Repository 10/18/2017 [id number] Ambulatory [facility] ding:RAD Repository 10/04/2017/10/05/19 [id number] Ambulatory BMSBuilding: Eli [address] [facility] Repository 10/03/2017/10/05/19 [id number] Carlos Alberto Ambulatory [place] ding:PCURoom Repository : UBF150Dhh: 1 10/03/2017/10/05/19 [id number] Ambulatory BMSBuilding: [place] [address] [facility] Repository 10/03/2017 [id number] Carlos Alberto Ambulatory BMSBuilding: [place] Ashly BMS.[facility] Repository 10/03/2017 [id number] Ambulatory BMSBuilding: Eli BMS.[facility] Repository 07/21/2017/07/22/19 [id number] Ambulatory [address] ding:SDCRoom Repository : AC07 06/01/2017 [id number] Ambulatory [facility] ding:MFPLAB Repository 05/18/2017/05/19/19 [id number] Ambulatory [address] Repository 05/05/2017/05/06/19 [id number] Ambulatory [address] Repository 04/20/2017/04/20/19 [id number] Ambulatory BMSBuilding: [place] 18 BMS.[facility] Repository 04/05/2017/04/05/19 [id number] Ambulatory BMSBuilding: [place] 18 BMS.[facility] Repository 03/24/2017 [id number] Ambulatory [facility] ding:CT Repository 03/06/2017/03/06/19 [id number] Ambulatory [address] ding:SP Repository PAYERS PAYERS ENCOUNTER GUARANTOR PAYER SUBSCRIBER SOURCE 03/16/2018 ISACC B Primary NOT GIVENUNK [facility] [id number] Insurance:SELF PAY [place], [place] Number: Effective Repository [address]Ujf: (630) Date:2016-12-23 [phone] () 02/19/2018 Ana Paula Primary Ana Paula [facility] Health ShumakerDOB: Insurance:CignaPolicy ShumakerDOB: System Number: Effective [id number] [facility] Date: [place], [place] [address]Hxl: (HP) 02/06/2018 ISACC B Primary ISACC B [place] [id number] Insurance:CIGNAPolicy SHUMAKERDOB: [facility] Number: [id number] [id number] Repository [address]Haz: (066) Date:3054-25-01QH [phone] () [place] [address]PB: 02/06/2018 Secondary NOT GIVENUNK [place] Insurance:SELF PAY [facility] Number: Effective Repository Date:2018-01-30 01/25/2018 ISACC B Primary ISACC B [place] [id number] Insurance:CIGNAPolicy SHUMAKERDOB: [facility] Number: [id number] [place], [place] [id number] Repository [address]Ugt: ([phone]) Date:4200-50-31IV [phone] () [place]SBRUFYHJKGO, [place] [address]WO: 01/25/2018 Secondary NOT GIVENUNK [place] Insurance:SELF PAY [facility] Number: Effective Repository Date:2018-01-25 01/22/2018 ISACC B Primary ISACC B [place] [id number] Insurance:CIGNAPolicy SHUMAKERDOB: [facility] Number: [id number] [place], [place] [id number] Repository [address]Mgg: (133) Date:7915-69-08KK [phone] () [place] [address]LC: 01/22/2018 Secondary NOT GIVENUNK [place] Insurance:SELF PAY [facility] Number: Effective Repository Date:2017-12-27 01/15/2018 ISACC Primary ISACC [place] [id number] Insurance:CIGNAPolicy SHUMAKERDOB: [facility] Number: [id number] [place], [place] [id number] Repository [address]Cvl: (021) Date:4554-21-52AR [phone] () 190763JTPSMZOUXHV, [place] [address]CE: 01/15/2018 Secondary NOT GIVENUNK [place] Insurance:SELF PAY [facility] Number: Effective Repository Date:2018-01-15 11/29/2017 ANA PAULA Primary ANA PAULA [place] [id number] Insurance:CIGNAPolicy SHUMAKERDOB: [facility] Number: [id number] [place], [place] [id number] Repository [address]Lze: ([phone]) Date:7234-92-38XT [phone] () 9649[address]LWOEUUYERDX, [place] [address]FW: 11/29/2017 Secondary NOT GIVENUNK [place] Insurance:SELF PAY [facility] Number: Effective Repository Date:2017-11-29 11/29/2017 Primary NOT GIVENUNK [place] Insurance:SELF PAY [facility] Number: Effective Repository Date:2017-11-29 10/18/2017 ISACC B Primary ISACC B [place] [id number] Insurance:CIGNAPolicy SHUMAKERDOB: [facility] Number: [id number] Plains, [place] [id number] Repository [address]Otx: ([phone]) Date:5929-79-28RU [phone] () [id number], [place] [address]HP: 10/18/2017 Secondary NOT GIVENUNK [place] Insurance:SELF PAY [facility] Number: Effective Repository Date:2017-10-13 10/04/2017 ISACC B Primary ISACC B [place] [id number] Insurance:CIGNAPolicy SHUMAKERDOB: [facility] Number: [id number] Plains, [place] [id number] Repository [address]Ikq: ([phone]) Date:7357-95-52US [phone] () [place] [address]CC: 10/04/2017 Secondary NOT GIVENUNK [place] Insurance:SELF PAY [facility] Number: Effective Repository Date:2017-10-04 10/03/2017 ANA PAULA Primary ANA PAULA Eli [id number] Insurance:CIGNAPolicy SHUMAKERDOB: [facility] Number: [id number] [place], [place] [id number] Repository [address]Hnv: (185) Date:3626-36-11BW [phone] () 617852TEFDDYOGVME, [place] [address]EL: 10/03/2017 Secondary NOT GIVENUNK [place] Insurance:SELF PAY [facility] Number: Effective Repository Date:2017-10-03 10/03/2017 ISACC B Primary ISACC B Eli [id number] Insurance:CIGNAPolicy SHUMAKERDOB: [facility] Number: [id number] [place], [place] [id number] Repository [address]Nbw: ([phone]) Date:3854-86-62[phone] () [id number], [place] [address]ZQ: 10/03/2017 Secondary NOT GIVENUNK Eli Insurance:SELF PAY [facility] Number: Effective Repository Date:2017-10-03 10/03/2017 ISACC B Primary ISACC B [place] [id number] Insurance:CIGNAPolicy SHUMAKERDOB: [facility] Number: [id number] [place], [place] [id number] Repository [address]Srk: ([phone]) Date:3072-60-84NB [phone] () [place] [address]KI: 10/03/2017 Secondary NOT GIVENUNK Eli Insurance:SELF PAY [facility] Number: Effective Repository Date:2017-10-03 10/03/2017 ISACC B Primary ISACC B Eli [id number] Insurance:CIGNAPolicy SHUMAKERDOB: [facility] Number: [id number] [place], [place] [id number] Repository [address]Kya: ([phone]) Date:8511-97-54GM [phone] () 169486EJPDBHKTLEO, [place] [address]DK: 10/03/2017 Secondary NOT GIVENUNK [place] Insurance:SELF PAY [facility] Number: Effective Repository Date:2017-10-03 07/21/2017 ISACC B Primary ISACC B Eli [id number] Insurance:CIGNAPolicy SHUMAKERDOB: [facility] Number: [id number] [place], [place] [id number] Repository [address]Rnx: ([phone]) Date:6839-51-24NT [phone] () [id number], [place] [address]BA: 07/21/2017 Secondary NOT GIVENUNK Lei Insurance:SELF PAY [facility] Number: Effective Repository Date:2017-07-04 06/01/2017 ISACC B Primary ISACC B Eli [id number] Insurance:CIGNAPolicy SHUMAKERDOB: [facility] Number: [id number] [place], [place] [id number] Repository [address]Qli: ([phone]) Date:2560-02-82GT [phone] () 575006XTGQKKFVCWE, [place] [address]GA: 06/01/2017 Secondary NOT GIVENUNK Eli Insurance:SELF PAY [facility] Number: Effective Repository Date:2017-06-01 04/20/2017 ISACC B Primary ISACC B [place] [id number] Insurance:CIGNAPolicy SHUMAKERDOB: [facility] Number: [id number] [place], [place] [id number] Repository [address]Iob: ([phone]) Date:4820-41-39BN [phone] () [id number], [place] [address]DH: 04/20/2017 Secondary NOT GIVENUNK [place] Insurance:SELF PAY [facility] Number: Effective Repository Date:2017-04-20 04/05/2017 ISACC B Primary ISACC B [place] [id number] Insurance:CIGNAPolicy SHUMAKERDOB: [facility] Number: [id number] [place], [place] [id number] Repository [address]Qse: ([phone]) Date:0378-90-15UU [phone] () 019697JRSOORPALAQ, [place] [address]JF: 04/05/2017 Secondary NOT GIVENUNK [place] Insurance:SELF PAY [facility] Number: Effective Repository Date:2017-04-05 03/24/2017 ISACC B Primary ISACC B [place] [id number] Insurance:CIGNAPolicy SHUMAKERDOB: [facility] Number: [id number] [place], [place] [id number] Repository [address]Kil: ([phone]) Date:9634-54-08QT [phone] () 200023UDPDWACBGPUBOONE PRADO [address]IR: 03/24/2017 Secondary NOT GIVENUNK Eli Insurance:SELF PAY [facility] Number: Effective Repository Date:2017-03-23 03/06/2017 ISACC B Primary ISACC B Eli [id number] Insurance:CIGNAPolicy SHUMAKERDOB: [facility] Number: [id number] [place], [place] [id number] Repository [address]Opx: ([phone]) Date:0027-69-92NW [phone] () [id number], [place] [address]HJ: 03/06/2017 Secondary Darlene [place] Insurance:ANTHEMPolic ShumakerDOB: [facility] Number: [id number] [id number] Repository Date:7308-95-40[address]IYJ[address] [place] [address]WY: 03/06/2017 Tertiary NOT GIVENANGELA [place] Insurance:SELF PAY [facility] Effective Repository Date:2017-03-01
== END ==
PROVIDERS: Family Provider Family Medicine; PCP Family Medicine; Referring Provider Family Medicine; Visit Provider Family Medicine
DX: K14.6 Glossodynia (principal)
CPT/HCPCS: 70491; Q9967

== ENCOUNTER → 2020-04-13 07:04 | Outpatient (CLI) | payer OTHER, SELFPAY ==
[2018-01-15 07:10] VITALS: BMI 28.5
[2020-04-13 10:08] LABS: Vitamin B12 1181 pg/mL (211-911)
[2020-04-13 10:44] LABS: Cholesterol 260 mg/dL (200); Glucose 99 mg/dL (74-106); High Density Lipoprotein 68 mg/dL; Triglycerides 117 mg/dL; Very Low Density Lipoprotein 23 mg/dL (5-40)
== END ==
PROVIDERS: PCP Family Medicine; Referring Provider Family Medicine; Visit Provider Family Medicine
DX: Z13.220 Encounter for screening for lipoid disorders (principal); Z15.89 Genetic susceptibility to other disease
CPT/HCPCS: 36415; 80061; 82607; 82746; 82947

== ENCOUNTER 2021-03-03 09:03 | Outpatient (CLI) | payer OTHER, SELFPAY ==
[2021-03-03 10:16] LABS: Absolute Lymphocyte Count 1.45 X10^3/uL (0.83-4.51); Absolute Neutrophil Count 2.4 X10^3/uL (2.0-7.7); Basophil# 0.04 X10^3/uL; Basophil% 0.9 % (0-1); Eosinophil# 0.18 X10^3/uL; Eosinophils% 3.9 % (0-5); Hematocrit 40.6 % (40-54); Hemoglobin 13.4 g/dL (13.0-16.5); Lymphocyte # 1.45 X10^3/ul (0.83-4.51); Lymphocyte % 31.3 % (19-41); Mean Corpuscular Hgb 30.4 pg (27.0-32.0); Mean Corpuscular Volume 92.1 fL (80-94); Mean Platelet Vol. 10.2 fl (6.2-12.0); Monocyte# 0.54 X10^3/uL; Monocyte% 11.6 % (0-10); NRBC Flagged by Analyzer 0 % (0-5); Neutrophil # 2.42 X10^3/uL (2.7-7.7); Neutrophil % 52.1 % (47-70); Platelet Count 255 K/mm3 (150-450); RBC Distribution Width CV 12.2 % (11.6-14.6); RBC Distribution Width SD 42.2 fl (35.1-43.9); Red Blood Count 4.41 M/mm3 (4.6-6.2); White Blood Count 4.6 K/mm3 (4.4-11.0)
[2021-03-03 10:35] LABS: ALB/GLOB Ratio 0.9 RATIO (0.9-2.4); AST(SGOT) 29 U/L (15-37); Alanine Aminotransfer ALT/SGPT 36 U/L (16-61); Albumin, Serum 3.7 g/dL (3.2-5.0); Alkaline Phosphatase 57 U/L (45-117); Anion Gap 6 (5-15); BUN 18 mg/dL (7-18); BUN/Creat Ratio 18.8 RATIO (10-20); Chloride 106 mmol/L (98-107); Cholesterol 253 mg/dL (200); Creatinine, Serum 0.96 mg/dL (0.70-1.30); EST Glomerular Filtration Rate 91 mL/min (>60); Est Glom Filt Rate - Afr Amer 110 mL/min (>60); Globulin 3.9 g/dL (2.2-4.2); Glucose 100 mg/dL (74-106); High Density Lipoprotein 69 mg/dL; Potassium 4.3 mmol/L (3.5-5.1); Protein, Total 7.6 g/dL (6.4-8.2); Sodium Level 140 mmol/L (136-145); Triglycerides 74 mg/dL; Very Low Density Lipoprotein 15 mg/dL (5-40)
== END 2021-03-03 23:59 | disposition short-term general hospital (02) ==
LOC: MFPLAB 09:04
PROVIDERS: PCP Family Medicine; Referring Provider Family Medicine; Visit Provider Family Medicine
DX: K14.9 Disease of tongue, unspecified (principal); Z13.220 Encounter for screening for lipoid disorders
CPT/HCPCS: 36415; 80053; 80061; 85025

== ENCOUNTER 2021-03-12 07:13 | Outpatient (CLI) | payer OTHER, SELFPAY ==
[2021-03-14 16:03] LABS: Testosterone Free 9.3 pg/mL (6.8-21.5)
== END 2021-03-12 23:59 | disposition short-term general hospital (02) ==
LOC: MTLAB 07:15
PROVIDERS: PCP Family Medicine; Referring Provider Family Medicine; Visit Provider Family Medicine
DX: R53.81 Other malaise (principal)
CPT/HCPCS: 36415; 84402; 84403

== ENCOUNTER 2021-04-02 16:09 | Emergency (ER) | payer OTHER, SELFPAY ==
[2021-04-02 16:10] VITALS: BP 160/84; PULSE 73; RESP 15; TEMP 36.3; O2SAT 100; BMI 28.7
[2021-04-02] MEDS: morphine 8 MG/ML Syringe 6 MG IM (16:48)
[2021-04-02] MEDS: Ondansetron ODT 4 MG Tablet PO (16:49)
--- NOTE | 2021-04-02 16:59 | ED.VIS.DENTA ---
HPI History of Present Illness Chief Complaint: Other, Pain/Inj Narrative Narrative: 45-year-old male with pain in his tongue. He states he was tongue tied and has a surgically fixed today. He states he was initially anesthetized and told to take ibuprofen when he got home but he says he has acute pain and is not being addressed by ibuprofen. His surgeon did not give him any stronger pain medication. He tried to call the office and he received a voicemail which was stating that they would call back tomorrow. PFSH PFSH Home Medications multivitamin 1 cap PO DAILY 04/05/17 [History Last Taken Unknown] citalopram 10 mg PO DAILY 07/14/17 [History Last Taken 07/21/17 10 MG] pantoprazole 40 mg PO DAILY #30 tab 10/04/17 [Rx Last Taken Unknown] oxycodone 5 mg PO Q6H PRN 3 Days #12 cap 04/02/21 [Rx Last Taken Unknown] Allergy/AdvReac Type Severity Reaction Status Date / Time Sulfa (Sulfonamide Allergy Anaphylaxis Verified 01/11/18 13:27 Antibiotics) Family History Other Hypertension Surgical History History of dental surgery Social History Smoking Status: Never smoker alcohol intake: current alcohol intake frequency: a few times a week Alcohol type: beer ROS ROS ED Constitutional Constitutional ED: Denies fever(s) or sweats Eyes Eyes: Denies blurry vision ENT ENT ED: Reports other Details: Tongue pain ; Denies rhinorrhea or sore throat Cardiovascular Cardiovascular: Denies chest pain Gastrointestinal Gastrointestinal: Denies abdominal pain, nausea or vomiting Genitourinary Genitourinary ED: Denies dysuria or hematuria Musculoskeletal Musculoskeletal: Denies arthralgias or myalgias Integumentary Denies abscess or rash Neurologic Neurologic: Denies headache(s), paresthesias or weakness EXAM Physical Exam Const Vital Signs: 04/02/21 16:10 04/02/21 16:37 Temperature 97.3 F L Temperature Source Temporal Pulse Rate 73 Respiratory Rate 15 Respiratory Effort Normal Non-Labored Respiratory Pattern Normal Blood Pressure 160/84 H Blood Pressure Mean 109 Pulse Ox 100 Oxygen Delivery Method Room Air Positive well nourished General Appearance ED: NAD HEENT HEENT Narrative: Frenulum at home is tender. There is no active bleeding or sign of infection. No drainage. Patient able to breathe and swallow. No some mandibular fullness. Negative for trauma Mouth ED: No lips normal Mouth: No lips normal Teeth and Gingiva: Negative for abnormal tooth and associated gingiva, caries or poor dentition Eyes PERRL Neck no lymphadenopathy and supple Cardio regular rate and regular rhythm Neuro oriented x3, CN's II-XII intact bilaterally, moves all extremities, no focal motor deficits and no sensory deficits noted Psych mental status grossly normal MDM MDM MDM Narrative Medical decision making narrative: Patient is acute postprocedural pain from his frenulectomy. Patient was given IM morphine in the ED for pain. I will give prescription for oxycodone. He is to follow-up with his surgeon outpatient. He can return precautions. Impression: 1. Postoperative pain status post frenulectomy Lab Data Attestation: I reviewed the patient's lab results. Discharge Plan Triage Chief Complaint: Other, Pain/Inj ED Provider: Daniel Shoemaker Dx/Rx/DC Orders Instructions: ED Post Op Wound Check, Pain Prescriptions: New oxycodone 5 mg capsule 5 mg PO Q6H PRN (Reason: pain) 3 Days Qty: 12 RF: 0 No Action multivitamin capsule capsule 1 cap PO DAILY RF: 0 citalopram 10 MG tablet 10 mg PO DAILY RF: 0 pantoprazole 40 MG tablet 40 mg PO DAILY Qty: 30 RF: 0 Primary Care Provider: Perez Milligan Referrals: Perez Milligan MD [Primary Care Provider] - Disposition Disposition: Home, Self Care
== END 2021-04-02 17:37 | disposition home or self-care (01) ==
LOC: ED 16:45
PROVIDERS: Emergency Provider Student in an Organized Health Care Education/Training Program; PCP Family Medicine; Visit Provider Student in an Organized Health Care Education/Training Program
DX: G89.18 Other acute postprocedural pain (principal); K14.6 Glossodynia; Z79.899 Other long term (current) drug therapy
CPT/HCPCS: 99281; 96372; 99283

== ENCOUNTER 2022-06-30 08:32 | Outpatient (CLI) | payer OTHER, SELFPAY ==
[2022-06-30 10:31] LABS: Absolute Lymphocyte Count 1.53 X10^3/uL (0.83-4.51); Absolute Neutrophil Count 2.7 X10^3/uL (2.0-7.7); Basophil# 0.05 X10^3/uL; Eosinophil# 0.25 X10^3/uL; Eosinophils% 4.8 % (0-5); Hematocrit 42.6 % (40-54); Hemoglobin 13.9 g/dL (13.0-16.5); Lymphocyte # 1.53 X10^3/ul (0.83-4.51); Lymphocyte % 29.4 % (19-41); Mean Corp Hgb Conc 32.6 g/dL (32-36); Mean Corpuscular Volume 91.8 fL (80-94); Mean Platelet Vol. 10.1 fl (6.2-12.0); Monocyte# 0.62 X10^3/uL; Monocyte% 11.9 % (0-10); NRBC Flagged by Analyzer 0 % (0-5); Neutrophil # 2.74 X10^3/uL (2.7-7.7); Neutrophil % 52.7 % (47-70); Platelet Count 278 K/mm3 (150-450); RBC Distribution Width CV 12.4 % (11.6-14.6); RBC Distribution Width SD 42.3 fl (35.1-43.9); Red Blood Count 4.64 M/mm3 (4.6-6.2); White Blood Count 5.2 K/mm3 (4.4-11.0)
[2022-06-30 11:21] LABS: ALB/GLOB Ratio 0.9 RATIO (0.9-2.4); AST(SGOT) 42 U/L (15-37); Alanine Aminotransfer ALT/SGPT 56 U/L (16-61); Albumin, Serum 3.8 g/dL (3.2-5.0); Alkaline Phosphatase 75 U/L (45-117); Anion Gap 8 (5-15); BUN 15 mg/dL (7-18); BUN/Creat Ratio 15.8 RATIO (10-20); Chloride 105 mmol/L (98-107); Cholesterol 303 mg/dL (200); Creatinine, Serum 0.95 mg/dL (0.70-1.30); EST Glomerular Filtration Rate 91 mL/min (>60); Est Glom Filt Rate - Afr Amer 110 mL/min (>60); Globulin 4.1 g/dL (2.2-4.2); Glucose 108 mg/dL (74-106); High Density Lipoprotein 56 mg/dL; Potassium 4.5 mmol/L (3.5-5.1); Protein, Total 7.9 g/dL (6.4-8.2); Sodium Level 138 mmol/L (136-145); Triglycerides 209 mg/dL; Very Low Density Lipoprotein 42 mg/dL (5-40)
[2022-07-01 12:29] LABS: Hemoglobin A1c 5.4 % (3.8-5.6)
== END 2022-06-30 23:59 | disposition home or self-care (01) ==
LOC: MTLAB 08:33
PROVIDERS: PCP Family Medicine; Referring Provider Family Medicine; Visit Provider Family Medicine
DX: E78.5 Hyperlipidemia, unspecified (principal); K14.9 Disease of tongue, unspecified
CPT/HCPCS: 36415; 80053; 80061; 83036; 85025

== ENCOUNTER → 2024-09-27 | Outpatient (CLI) | payer BC, SELFPAY ==
[2024-09-27 12:28] LABS: Hematocrit 41.1 % (40-54); Hemoglobin 13.6 g/dL (13.0-16.5); Immature Granulocytes Count 0.030 X10^3/uL (0.0-0.0); Mean Corp Hgb Conc 33.1 g/dL (32-36); Mean Corpuscular Volume 93.0 fL (80-94); Mean Platelet Vol. 12.8 fl (6.2-12.0); NRBC Flagged by Analyzer 0 % (0-5); Platelet Count 158 K/mm3 (150-450); RBC Distribution Width CV 12.7 % (11.6-14.6); RBC Distribution Width SD 43.7 fl (35.1-43.9); Red Blood Count 4.42 M/mm3 (4.6-6.2); White Blood Count 5.2 K/mm3 (4.4-11.0)
[2024-09-27 13:39] LABS: Creatinine, Urine (random) 89.60 mg/dL (39.00-259.00); Microalbumin,Random Urine < 12.0 mg/L (<20 mg/L)
[2024-09-27 14:18] LABS: AST(SGOT) 36 U/L (<=37); Alanine Aminotransfer ALT/SGPT 34 U/L (<=46); Albumin, Serum 4.5 g/dL (3.5-5.0); Alkaline Phosphatase 69 U/L (40-129); Anion Gap 12 (5-15); BUN 16 mg/dL (4-19); BUN/Creat Ratio 17.9 RATIO (10-20); Calcium,Total 9.6 mg/dL (7.6-11.0); Carbon Dioxide 24.7 mmol/L (21.0-32.0); Chloride 103 mmol/L (98-108); Globulin 3.3 g/dL (2.2-4.2); Glucose 99 mg/dL (70-99); Potassium 4.5 mmol/L (3.3-5.1)
== END | disposition home or self-care (01) ==
LOC: MFPLAB 10:08
PROVIDERS: PCP Family Medicine; Visit Provider Family Medicine
DX: I10 Essential (primary) hypertension (principal)
CPT/HCPCS: 36415; 80053; 82043; 82570; 84443; 85025

== ENCOUNTER → 2024-11-14 | Outpatient (CLI) | payer SELFPAY ==
--- NOTE | 2024-11-14 10:15 | CT_ITS ---
PROCEDURE: LIMITED CHEST CT CARDIAC ONLY 11/14/2024 REASON FOR EXAM: HIGH CHOLESTROL TECHNIQUE: Procedure Code: [id number] Modality: CT Procedure: LIMITED CHEST CT CARDIAC ONLY CONTRAST: None One or more dose reduction techniques were used (e.g., Automated exposure control, adjustment of the mA and/or kV according to patient size, use of iterative reconstruction technique). RADIATION DOSE SUMMARY: CTDlvol: 12.19 mGy DLP: 219.42 mGycm COMPARISON: None FINDINGS: Small benign-appearing mediastinal lymph nodes. The heart is nonenlarged. No coronary artery calcification. Lungs are clear. CT/Limited Chest CT Cardiac Only IMPRESSION: No coronary artery calcification. Reading Location: [place] [address]
--- NOTE | 2024-11-14 15:35 | CA.SCORE ---
Calcium Scoring Date of Study:: 11/14/24 Indications Indications: Family history high cholesterol Coronary Calcium Scoring: High-resolution Computed Tomographic imaging of the chest was performed on [11/14/2024], with particular attention paid to the coronary arteries. Images from the examination were analyzed for the presence and extent of coronary artery calcification , using coronary calcium quantification software. The patient tolerated the procedure well and there were no complications. The results of the coronary calcification analysis are provided below. Findings Coronary Artery Left Main (LM): 0 Left Anterior Descending (LAD): 0 Left Circumflex (LCX): 0 Right Coronary Artery (RCA): 0 Total Agatston Score: 0 Percentile Rankin Calcium Scoring Interpretation: Different methods to categorize the overall amount of coronary plaque. Overall amount CAC SIS Visual of coronary plaque P1 Mild -100 <2 1-2 vessels with mild amount of plaque P2 Moderate 101-300 3-4 1-2 vessels with moderate amount, 3 vessels with mild amount of plaque P3 Severe 301-999 5-7 3 vessels with moderate amount, 1 vessel with severe amount of plaque P4 Extensive >1000 >8 2-3 vessels with severe amount of plaque Conclusion: No atherosclerotic plaquing noted.
== END | disposition home or self-care (01) ==
LOC: CT 09:58
PROVIDERS: PCP Family Medicine; Referring Provider Family Medicine; Visit Provider Family Medicine
DX: I10 Essential (primary) hypertension (principal); E78.00 Pure hypercholesterolemia, unspecified
CPT/HCPCS: 75571; 76380